=== PATIENT | female | born 1940 | race Caucasian/White ===

== ENCOUNTER 2017-05-13 11:47 | Inpatient (IN) ==
[~2017-05-13 11:47] MED LIST: ERTAPENEM 1 G in NS 100 ML IV ONE
[2017-05-13 12:13] VITALS: BMI 26.9
[2017-05-13] MEDS: LR 1,000 ML IV SCH ×3 (12:50→18:48)
--- NOTE | 2017-05-13 13:40 | Anesthesia Preoperative Report ---
Anesthesia Preoperative Record - Date and Time Date: 05/13/17 Preoperative Diagnosis: Lap lia R10.11 K80.00 Proposed Procedure: lap lia NPO Since Date: 05/12/17 NPO Since Time: 23:00 Allergies/Adverse Reactions: Allergies Allergy/AdvReac Type Severity Reaction Status Date / Time No Known Allergies Allergy Verified 05/13/17 12:07 - Vital Signs Vital Signs: Temperature 98.3 F 05/13/17 12:13 Pulse Rate 101 H 05/13/17 12:13 Respiratory Rate 20 05/13/17 12:13 Blood Pressure 130/61 05/13/17 12:13 Pulse Oximetry 96 05/13/17 12:13 Oxygen Delivery Method Room Air Height and Weight: Height 4 ft 11.5 in Weight 61.6 kg Body Mass Index 26.9 - Medications Inpatient Medications: Current Medications Lactated Ringer's (Lactated Ringers) 1,000 mls @ 30 mls/hr IV .Q24H PAKO Last Admin: 05/13/17 12:50 Dose: 30 mls/hr Lidocaine HCl (Xylocaine-Mpf 1% Vial) 1 mg ID O ONE Stop: 05/13/17 15:13 Last Admin: 05/13/17 12:50 Dose: 1 mg Home Medications: Home Medications Medication Instructions Recorded Confirmed Type Esomeprazole Magnesium [Nexium] 40 mg PO DAILY 05/04/17 05/13/17 History Metformin [Glucophage] 500 mg PO BID 05/04/17 05/13/17 History Multivitamin [One Daily] 1 tab PO DAILY 05/04/17 05/13/17 History Simvastatin [Zocor] 40 mg PO HS 05/04/17 05/13/17 History Calcium Carbonate [Calcium] 1 tab PO HS 05/11/17 05/13/17 History [place]-3/Dha/Epa/Fish Oil [Fish Oil 1 each PO DAILY 05/11/17 05/13/17 History 1,000 mg Softgel] Is Patient on Beta Viviana?: No - Medical History Respiratory: DENIES: Asthma Cardiovascular: DENIES: Hypertension Gastrointestional: Reports: Gastroesophageal Reflux Disease (controlled) Renal/Endocrine: DENIES: Diabetes Mellitus Type 2 Other History: DENIES: Anesthesia Reactions - Surgical History GI Surgery/Treatments: Reports: Colonoscopy, EGD Reproductive Surgery/Treatment: Reports: Dilation and Curettage, Mastectomy ( RIGHT BREAST) Anesthesia Reactions: None Hx Family Anesthesia Reaction: No History of Motion Sickness: No - Social History Smoking Status: Former smoker Hx Chewing Tobacco Use: No Second Hand Exposure: No Substance Use Type: does not use Alcohol Intake Frequency: does not drink - Pertinent Findings Laboratory: CBC and BMP 05/13/17 12:29 BMP 05/13/17 12:29 Sodium 144 Potassium 4.2 Chloride 104 Carbon Dioxide 29 BUN 14.0 Creatinine 0.8 Glucose 130 H Calcium 10.0 Liver Function 05/13/17 Range/Units 12:29 Total Bilirubin 1.20 (0.20-1.30) MG/DL AST 41 H (14-36) U/L ALT 125 H (9-52) U/L Alkaline Phosphatase 173 H (38-126) U/L Albumin 4.3 (3.5-5.0) G/DL EKG Rhythm: Normal Sinus Rhythm - Physical Exam Respiratory Exam: Present: lungs clear Cardiovascular Exam: Present: regular rate and rhythm - Airway Assessment Mallampati Score: II TMD: 3 Fingerbreadths Neck Extension: fair Teeth: poor dentation Overall Assessment: no airway concerns - ASA ASA Score: 2 - Plan Anesthesia: General Inhalation Gases - Discussion Discussion: Discussed risks/options/alternatives of anesthesia and questions answered. Patient consents. Nursing pain assessment noted. Present for Discussion: family member Attestation Statement: Prior to the delivery of any anesthetic medication, I examined the patient, developed the plan, obtained the patient's consent and discussed the risk and benefits of the procedure with the patient/guardian. - Additional Information Seen by Anesthesia: Yes
[2017-05-13] MEDS ORDERED: BUPIVACAINE 0.25%/EPI 1:200,000 30ml SDV ONE (13:41)
[2017-05-13] MEDS ORDERED: IOHEXOL 300mg/ml 50ml INJECTION ONE (13:42)
[2017-05-13] MEDS ORDERED: IOHEXOL 300mg/ml 50ml INJECTION OPSITE ONE (13:54)
[2017-05-13] MEDS ORDERED: KETAMINE 500 MG/10 ML INJECTION ONE (14:09)
[2017-05-13] MEDS ORDERED: MIDAZOLAM 2mg/2ml INJECTION ONE (14:09)
[2017-05-13] MEDS ORDERED: FentaNYL 100 MCG/2 ML INJECTION ONE (14:09)
[2017-05-13] MEDS ORDERED: PROPOFOL 20 ML ONE (14:11)
[2017-05-13] MEDS ORDERED: ROCURONIUM 50 MG/5 ML INJECTION IVP ONE ×2 (14:11→16:52)
[2017-05-13] MEDS ORDERED: ONDANSETRON 4 MG/2 ML INJECTION ONE (14:18)
[2017-05-13] MEDS ORDERED: DEXAMETHASONE 4 MG/ML INJECTION ONE (14:18)
[2017-05-13] MEDS ORDERED: METOCLOPRAMIDE 10mg/2ml INJECTION ONE (14:18)
[2017-05-13] MEDS ORDERED: LIDOCAINE 1% (10mg/ml) 2mL INJ PF SDV ID ONE (15:12)
[2017-05-13] MEDS ORDERED: HYDROMORPHONE 2 MG/ML INJECTION ONE (15:14)
[2017-05-13] MEDS ORDERED: GLYCOPYRROLATE 0.4 MG/2 ML INJECTION ONE ×2 (15:15→18:20)
[2017-05-13] MEDS ORDERED: ACETAMINOPHEN IV 1,000 MG/100 ML VIAL IV ONE (15:31)
[2017-05-13] MEDS ORDERED: ONDANSETRON 4 MG/2 ML INJECTION IVP PRN (18:15)
[2017-05-13] MEDS ORDERED: HYDROMORPHONE 2 MG/ML INJECTION IVP PRN ×2 (18:15→19:34)
[2017-05-13] MEDS ORDERED: FentaNYL 100 MCG/2 ML INJECTION IVP PRN (18:15)
[2017-05-13] MEDS ORDERED: NEOSTIGMINE 10 MG/10 ML INJECTION ONE (18:20)
--- NOTE | 2017-05-13 18:34 | General Surgery Procedure Note ---
Date of Procedure: 05/13/17 Surgeon: [employer] Technologist: Ramiro Postoperative Diagnosis: Acute cholecystitis, choledocholithiasis with obstruction Procedure: Laparoscopic with conversion to open cholecystectomy with intraoperative cholangiogram, open common bile duct exploration and placement of T-tube. Estimated Blood Loss: See Anesthesia Record.
[2017-05-13] MEDS ORDERED: HYDROMORPHONE PCA 30mg/30ml VIAL IV PRN (19:02)
[2017-05-13] MEDS ORDERED: MORPHINE SULFATE 4 MG SYRINGE IVP PRN (19:02)
[2017-05-13] MEDS: BUPIVACAINE 0.25%/EPI 1:200,000 30ml SDV INFIL ONE (19:17)
[2017-05-13] MEDS: NS 1,000 ML IV SCH (20:23)
[2017-05-13] MEDS: ONDANSETRON 4 MG/2 ML INJECTION IVP PRN (22:52)
[2017-05-13] MEDS ORDERED: FUROSEMIDE 20 MG/2 ML INJECTION IVP ONE (23:40)
[2017-05-14] MEDS: SALINE FLUSH 10ml SYRINGE IV PRN ×3 (02:15→19:49)
[2017-05-14] MEDS ORDERED: DiphenhydrAMINE 50 MG/ML INJECTION IVP ONE (02:56)
[2017-05-14] MEDS: KETOROLAC 15 MG/ML INJECTION IVP PRN (03:03)
[2017-05-14] MEDS: NS 1,000 ML IV SCH ×3 (05:42→18:26)
[2017-05-14] MEDS: ONDANSETRON 4 MG/2 ML INJECTION IVP PRN ×2 (06:07→20:11)
[2017-05-14] MEDS ORDERED: NS 1,000 ML IV SCH (08:00)
[2017-05-14] MEDS: MORPHINE SULFATE 2 MG SYRINGE IVP PRN ×2 (09:04→19:49)
[2017-05-14] MEDS: ENOXAPARIN 40 MG/0.4 ML INJECTION SQ SCH (09:07)
[2017-05-14] MEDS: METFORMIN 500 MG TABLET PO SCH (09:10)
[2017-05-14] MEDS: PANTOPRAZOLE 40 MG INJECTION IVP SCH (09:10)
[2017-05-14] MEDS: ERTAPENEM 1 G in NS 100 ML IV SCH (09:11)
--- NOTE | 2017-05-14 10:39 | Consult Note ---
<Krystal Bliss Francesco - Last Filed: 05/14/17 10:35> Consult Information - Data of Consult Patient: new to practice Consult date: 05/14/17 Requesting Physician: Sunil Cantu MD Primary Care Provider: Sridhar Chaudhry MD Family Provider: Sridhar Chaudhry MD - Consult Narrative Reason for consult: Oliguria History of present illness: Alicia Ba is a 76-year-old woman who is seen in consultation from Dr. Cantu for decreased urine outputs. She was admitted on 05/13/17 for cholecystectomy. Originally, this was planned to be laparoscopic, but this was converted to open. She has had decreased urine outputs, at times only 15 mL per hour. Her vital signs have remained stable. Her renal function is intact with BUN of 12 and creatinine of 0.8. Liver enzymes are elevated, but alkaline phosphatase is starting to decline. White blood cell count is 13.6, sodium level is slightly elevated at 145. Alicia was seen in her CCU bed. She states that she is still having abdominal pain, but it is not quite as bad as it was earlier. She complains of constant nausea without vomiting. She complains of headache and dizziness. She states that before all this started, she was having some diarrhea, but this has resolved. She also recently was complaining of hematochezia, and underwent a screening colonoscopy on 05/05/17 which did not show acute pathology. She denies any urinary symptoms. She denies any chest pain or palpitations, dyspnea, cough , fever, chills, sweats, leg swelling, paresthesias. She states that overall she is pretty healthy. [facility] Type 2 diabetes mellitus, [id number]. Last hemoglobin A1c was 6.6% on 02/03/17. Hyperlipidemia - on statin Benign essential Hypertension, no current medications Schizophrenia - previously had taken Zyprexa Right sided breast cancer, in remission. Left-sided screening mammography 2016 was negative. Peptic ulcer disease GERD Insomnia Osteoporosis Surgical History: 05/13/17: Laparoscopic with conversion to open cholecystectomy with intraoperative cholangiogram, open common bile duct exploration and placement of T-tube. (Dr. Cantu). 05/05/17: Screening colonoscopy: Moderate sigmoid diverticulosis. (Dr. Cantu). EGD and colonoscopy: 2006. Right sided mastectomy 1986. D&C 1985 Family History: Mother had diabetes. Brother: Alcohol abuse, liver failure, pancreatic cancer. Sister with diabetes. - Social History Smoking status: Former smoker (quit about 28 years ago) Substance use type: does not use Alcohol intake frequency: does not drink Household members: other (patient is single) Does patient use chewing tobacco?: No Social history: Primary care provider: Dr. Chaudhry Review of Systems Comprehensive ROS: completed and no additional positive findings except those as stated - Constitutional Constitutional: Present: headache(s). Absent: chills, fever(s) - EENMT Eyes: Present: requires corrective lenses. Absent: change in vision Mouth/Throat: Absent: sore throat - Cardiovascular Cardiovascular: Absent: chest pain, palpitations, dyspnea on exertion Vascular: Absent: pedal edema - Respiratory Respiratory: Absent: cough, dyspnea - Gastrointestinal Gastrointestinal: Present: as per HPI, abdominal pain, diarrhea, hematochezia, nausea. Absent: vomiting - Genitourinary Menstruation: post menopausal - Musculoskeletal Musculoskeletal: Absent: muscle cramps - Integumentary/Breasts Integumentary: Absent: pruritus, rash - Neurological Neurological: Present: dizziness. Absent: abnormal gait, frequent falls, paresthesias - Psychiatric Psychiatric: Present: abnormal sleep pattern - Hematologic/Lymphatic Hematologic/Lymphatic: Absent: easy bleeding Medications Home Medications Medication Instructions Recorded Confirmed Type Esomeprazole Magnesium [Nexium] 40 mg PO DAILY 05/04/17 05/13/17 History Metformin [Glucophage] 500 mg PO BID 05/04/17 05/13/17 History Multivitamin [One Daily] 1 tab PO DAILY 05/04/17 05/13/17 History Simvastatin [Zocor] 40 mg PO HS 05/04/17 05/13/17 History Calcium Carbonate [Calcium] 1 tab PO HS 05/11/17 05/13/17 History [place]-3/Dha/Epa/Fish Oil [Fish Oil 1 each PO DAILY 05/11/17 05/13/17 History 1,000 mg Softgel] Allergies Allergy/AdvReac Type Severity Reaction Status Date / Time No Known Allergies Allergy Verified 05/13/17 12:07 Exam Vital Signs: Temperature 98.6 F 05/14/17 07:50 Pulse Rate 96 05/14/17 06:00 Respiratory Rate 18 05/14/17 08:00 Blood Pressure 123/55 05/14/17 06:00 Pulse Oximetry 100 05/14/17 06:00 Oxygen Delivery Method Nasal Cannula Oxygen Flow Rate 2 Fraction of Inspired Oxygen 30 Telemetry Rhythm: Sinus Rhythm Height/Weight/BMI: Height 1.51 m Weight 59.5 kg Body Mass Index 26.9 - Constitutional Present: no acute distress, well nourished, well developed, cooperative - Routine HEENT Exam Head: Present: normocephalic Eye: Present: PERRL. Absent: conjunctival icterus, scleral injection ENT: Present: mucous membranes dry, oropharynx clear - Routine Neck Exam Present: supple. Absent: lymphadenopathy - Routine Chest/Breast/Axilla Exam Comments: Right mastectomy - Routine Respiratory Exam Present: CTA bilaterally - Routine Cardiovascular Exam Present: RRR, S1, S2 - Routine Abdominal Exam Present: drain (2) Comments: Large dressing over her abdomen. Her abdomen is distended with markedly hypoactive bowel sounds. Abdominal assessment and palpation deferred to attending. - Routine Extremities Exam Present: no edema, pulses intact, normal capillary refill - Routine Skin Exam Present: dry, warm - Routine Neurological Exam Present: alert, oriented X3, CN II-XII intact, vision grossly intact, normal speech. Absent: facial asymmetry - Routine Psychiatric Exam Present: normal affect, normal thought process, cooperative Results - Labs CBC & Chem 7: 05/14/17 04:06 05/14/17 04:03 Assessment and Plan (1) Oliguria Current visit: Yes Status: Acute DVT Prophylaxis: Lovenox GI Prophylaxis: Protonix Resuscitation Status: Full Code Assessment and Plan: Assessment Oliguria Leukocytosis. Hypernatremia, mild S/P Laparoscopic with conversion to open cholecystectomy with intraoperative cholangiogram, open common bile duct exploration & placement of T-tube. Elevated LFTs secondary to cholecystitis Type 2 diabetes mellitus, [id number]. Last hemoglobin A1c was 6.6% on 02/03/17. Hyperlipidemia - on statin Hypertension - no medication required Schizophrenia - had been on Zyprexa in the past Right sided breast cancer, in remission. 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 The last 3 hours, she has had 50 mL, 60 mL, and 40 mL[address] of output. Dr. Juarez has already ordered a fluid bolus. Her renal function is currently stable with BUN of 12 and creatinine of 0.8. Review of [facility] records show a consistent GFR greater than 60, and a baseline creatinine of 0.8. However, with her underlying hypertension and diabetes, she'll is at risk for chronic kidney disease; and with recent major surgery is at greater risk for acute kidney injury. Continue to monitor vital signs, preventing hypotension as able, which would contribute to reduced renal perfusion. Currently, her vital signs are stable, and her mean arterial pressure has typically been in the 80s. Leukocytosis - continue meropenem per attending. (Leukocytosis could be stress reaction) Mild hypernatremia - IV fluids. Monitor blood sugars. She has had some readings above 180. Start low correction sliding scale insulin. Hold metformin for now. [facility] records show that she is also taking glimepiride 2 mg daily. When she is medically cleared to advance her diet and is eating well, we could consider resuming glimepiride, monitoring closely for hypoglycemia. Thank you for this consult. We will follow Alicia along with you during her hospitalization. Hospital Course Summary Disclaimer: The visit summary below is not to be considered part of the above Progress Note. 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 The last 3 hours, she has had 50 mL, 60 mL, and [address] Juarez has already ordered a fluid bolus. Her renal function is currently stable with BUN of 12 and creatinine of 0.8. Review of [facility] records show a consistent GFR greater than 60, and a baseline creatinine of 0.8. However, with her underlying hypertension and diabetes, she'll is at risk for chronic kidney disease; and with recent major surgery is at greater risk for acute kidney injury. Continue to monitor vital signs, preventing hypotension as able, which would contribute to reduced renal perfusion. Currently, her vital signs are stable, and her mean arterial pressure has typically been in the 80s. Leukocytosis - continue meropenem per attending. (Leukocytosis could be stress reaction) Mild hypernatremia - IV fluids. Monitor blood sugars. She has had some readings above 180. Start low correction sliding scale insulin. Hold metformin for now. [facility] records show that she is also taking glimepiride 2 mg daily. When she is medically cleared to advance her diet and is eating well, we could consider resuming glimepiride, monitoring closely for hypoglycemia. Sepsis Assessment - Evaluation Sepsis screening result: Severe Sepsis Risk <Denver Juarez - Last Filed: 05/14/17 11:39> Consult Information - Data of Consult Requesting Physician: Sunil Cantu MD Primary Care Provider: Sridhar Chaudhry MD Family Provider: Sridhar Chaudhry MD [facility] Patient Stated Medical History Transient Ischemic Attacks ( Yes TIA) Cataracts Yes Other HEENT Yes: glasses Hypertension No Asthma No Sleep Apnea No Diabetes Mellitus Type 2 No Gastroesophageal Reflux Yes: controlled Disease Ulcer Yes: PEPTIC Other GI Yes: cholelithiasis Other Musculoskeletal Yes: OSTEOPOROSIS Anesthesia Reactions No Paranoid Disorder Yes Schizophrenia Yes Post Menopausal Yes Exam Vital Signs: Temperature 98.6 F 05/14/17 07:50 Pulse Rate 96 05/14/17 06:00 Respiratory Rate 18 05/14/17 08:00 Blood Pressure 123/55 05/14/17 06:00 Pulse Oximetry 100 05/14/17 06:00 Oxygen Delivery Method Nasal Cannula Oxygen Flow Rate 2 Fraction of Inspired Oxygen 30 Height/Weight/BMI: Height 1.51 m Weight 59.5 kg Body Mass Index 26.9 Results - Labs CBC & Chem 7: 05/14/17 04:06 05/14/17 04:03 Assessment and Plan (1) Oliguria Current visit: Yes Status: Acute DVT Prophylaxis: SCD's Assessment and Plan: Assessment Oliguria Leukocytosis. Hypernatremia, mild S/P Laparoscopic with conversion to open cholecystectomy with intraoperative cholangiogram, open common bile duct exploration & placement of T-tube. Elevated LFTs secondary to cholecystitis Type 2 diabetes mellitus, [id number]. Last hemoglobin A1c was 6.6% on 02/03/17. Hyperlipidemia - on statin Hypertension - no medication required Schizophrenia - had been on Zyprexa in the past Right sided breast cancer, in remission. Peptic ulcer disease; GERD Insomnia Osteoporosis Have independently interviewed and examined pt. Chart reviewed. Case discussed with CCU nursing and my DIRECT SUPPORT STAFF MEMBER. Care plan developed with my supervision; agree with above. Feeling fair this morning. Notes ab pain, mainly to right upper quadrant. Nausea present. No flatus. Not feeling SOA or hurting with breathing. No chest pressure or pain. Urine output increase after IVF bolus given-respiratory status remained stable. Lungs: decreased, no distress on O2. CV: regular AB: soft nd, BS not present MSE: awake alert appropriate Plan: Continue IVF for support-monitor BP and urine output. Withe elevated liver enzymes, will hold Zocor and metformin; monitor. SCD and Lovenox initiated for DVT prevention. Protonix IV for her GERD. Encourage IS for pulm toilet. Encourage ambulation. Monitor lab and sugars - ISS initiated. Hospital Course Summary Disclaimer: The visit summary below is not to be considered part of the above Progress Note.
--- NOTE | 2017-05-14 11:36 | Progress Note ---
DATE 05/14/2017 POSTOP DAY #1 HISTORY The patient is in the intensive care unit following her operation yesterday evening. The patient is doing well overall. She did have some urinary retention during the night last night and was not able to urinate. A bladder scan was used to check the urinary bladder and there was 800 mL of residual urine in the urinary bladder at this time which the patient was unable to void. A Ho catheter was therefore inserted. Urine output has been monitored with the Ho catheter since then. The urine output was somewhat low earlier this morning and the patient was given a fluid bolus of 250 mL. Urine output improved after this. The patient does require oxygen administration by nasal cannula. She is receiving some respiratory therapy treatments. The patient is receiving intravenous Invanz. The patient has been tolerating a clear liquid diet this morning. She does have an order to advance diet as tolerated. INTAKE AND OUTPUT Overall urine output for the last shift was good although the patient did have some low urine output earlier this morning. The patient did have output of 190 mL of normal-appearing bile from the T-tube during the last shift. There is normal-appearing bile in the bag draining from the T-tube at this time. The patient had 70 mL of output from the Ángel-Poe channel drain to the subhepatic space during the last shift. This drainage in the Ángel-Poe channel drain is serosanguineous and not bile-stained. PHYSICAL EXAM VITAL SIGNS: Temperature is 98.6 degrees oral. Pulse is 96. Respiratory rate is 16. Blood pressure is 123/55. Oxygen saturation is 100% on oxygen at 2 liters per minute by nasal cannula at this time. ABDOMEN: Dressings are left in place at the abdominal incisions. The abdomen is soft. The drains to the abdomen all have a satisfactory appearance. LABORATORY DATA White blood cell count is 13,600 with 4 bands this morning. Hemoglobin is 12.4. Hematocrit is 40. Serum electrolytes are all in a satisfactory range. Serum creatinine is 0.8. IMPRESSION 1. Doing well overall following open cholecystectomy, intraoperative cholangiograms, common bile duct exploration, removal of common bile duct stones and T-tube cholangiograms on 05/13/2017. 2. Postoperative urinary retention. 3. Transient low urine output this morning. PLAN 1. Continue postoperative care in the intensive care unit. 2. The Ho catheter will be left in place yet at this time because of postoperative urinary retention and low urine output. 3. Continue intravenous Invanz. 4. Continue leaving the bile tube to dependent drainage at this time. 5. Continue respiratory therapy. 6. Continue Lovenox and sequential compression devices for deep venous thrombosis prophylaxis. MTDD
[2017-05-14] MEDS: HYDROCODONE/APAP 5mg/325mg TABLET PO PRN (12:20)
--- NOTE | 2017-05-14 15:41 | Operative Note ---
DATE OF SERVICE 05/13/2017 SURGEON Sunil Cantu MD CHECKING CLERK Alex Rubio MD PREOPERATIVE DIAGNOSIS Symptomatic cholelithiasis, possible choledocholithiasis. POSTOPERATIVE DIAGNOSIS Acute/chronic cholecystitis, choledocholithiasis. PROCEDURE Attempted laparoscopic cholecystectomy with conversion to open cholecystectomy and common bile duct exploration. ANESTHESIA General endotracheal. EBL/FLUIDS Please see chart. BRIEF HISTORY/INDICATIONS Mrs. Ba is a 76-year-old female whom I was asked to see earlier this week through the emergency room. The patient apparently had earlier this week an episode of abdominal pain that lasted for a couple of days. The patient subsequently presented to her PCP and evaluation was undertaken. Lab work was obtained through the office and her bilirubin was found to be elevated at 4. The patient subsequently underwent a CT scan that did reveal evidence for cholelithiasis and probable choledocholithiasis. Repeat lab in the ER revealed that her bilirubin was on a downward trend. The patient's abdominal pain at that time had resolved. Patient was subsequently sent to my office the following day. As a result of the above indications the patient was scheduled undergo cholecystectomy. She presents today to undergo this procedure. For completeness please refer to notes included in the patient's chart. FINDINGS Upon laparotomy the liver edge was smooth without nodularities. Peritoneal surfaces, small bowel, omentum and colon which were visualized were within normal limits. The gallbladder was markedly abnormal. There was a very thickened "rind" surrounding the gallbladder consistent with that of chronic inflammation. Furthermore, essentially the infundibulum was adherent to the common bile duct and there was no cystic duct present. Dissection was difficult and therefore the procedure was converted to an open procedure. Infundibulum was dissected down to the junction with the common bile duct. Intraoperative cholangiogram was obtained that revealed multiple common bile duct stones. Subsequent formal common bile duct exploration was undertaken and her common bile duct was cleared. NARRATIVE OF PROCEDURE After informed consent was obtained the patient was brought to the operative suite and placed on the table in supine fashion. The abdomen was prepped and draped in sterile fashion. Formal time-out was then completed. 0.25% Marcaine with epinephrine was injected just beneath the level of the umbilicus. A 2-cm curved incision was made through the area of analgesia. Dissection was carried down to the deep subcuticular tissues to underlying fascia. The fascia was grasped with two Rubén clamps and retracted anteriorly. A 1-cm incision was then made between the two Rubén clamps. Hemostat was then introduced and the fascial incision gently spread. U-stitch was placed with 0-Vicryl. A 12-mm Marion port was then placed in the peritoneal cavity and pneumoperitoneum was established to a patient pressure of 15 mmHg utilizing carbon dioxide. Next, three additional 5-mm ports were placed in the epigastric region, right mid abdomen and right lateral abdominal wall. Each port site was placed under direct visualization. Fundus of the gallbladder was then grasped and retracted in cephalad fashion. One could then see that the anatomy was abnormal and it appeared that the infundibulum was adherent to the common bile duct. One could see significant dilatation of the common bile duct within the hepatoduodenal ligament. Dissection was begun upon the midportion of the infundibulum of the gallbladder away from what was believed to be the common bile duct. Dissection was very tedious as a result of a very thickened rind around the gallbladder consistent with that of chronic cholecystitis. At this point in time I elected to go ahead and proceed with an approach from the fundus down towards the infundibulum. Fundal portion of the gallbladder was able to be dissected away from the liver bed fossa. Dissection was then continued between the gallbladder and the liver bed fossa in a fundus-down approach towards the infundibulum. As one reached the infundibulum of the gallbladder the dissection began to become more tedious in nature. Anatomy was not able to be clearly defined and I therefore elected to proceed with conversion to open procedure. Ports were removed. Previously placed U-stitch at the infraumbilical port was then secured, imbricating the fascia. Next, a standard right subcostal incision was performed. The underlying external oblique, transversalis, internal oblique and peritoneum was opened to the extent of the incision. A Codman retractor was then placed to provide adequate exposure. Next, a Rubén clamp was then placed upon the fundal portion of the gallbladder. Gallbladder was retracted in an anterior and lateral fashion. Dissection was then continued upon the infundibulum of the gallbladder. Dissection was very difficult as a result of this thickened rind, as discussed above. Cystic artery was able to be identified and dissected away from the gallbladder. The infundibular portion of the gallbladder was then continued to be dissected out towards the common bile duct. Next, a cholecystotomy was performed within the mid portion of the gallbladder. I then placed a right angle clamp into the gallbladder lumen and a portion of the gallbladder wall was opened so that one could see towards the fundal portion of the gallbladder. One could then see that the fundal portion of the gallbladder was actually adherent to the gallbladder and there was no cystic duct. One could directly look into the common bile duct from the incision that had been performed upon the mid portion of the gallbladder lumen. Next, a cholangiocatheter was then placed through the cholecystotomy and advanced into the common bile duct. An 0- Vicryl suture was then placed upon the remaining portion of the infundibulum of the gallbladder that had not been opened. I subsequently tied the Vicryl suture around the infundibular portion of the gallbladder, imbricating the fundal portion of the gallbladder to the cholangiocatheter. Cholangiogram was then obtained. Unfortunately, one could see multiple very large stones within the common bile duct. Common bile duct was significantly dilated in nature. Next, a Codman retractor was then replaced to provide exposure once again. The previously placed 0-Vicryl suture upon the infundibular portion of the gallbladder was then transected with Metzenbaums and the cholangiocatheter was removed. Next, I placed a choledochoscope through the cholecystotomy and advanced it directly into the common bile duct. One could then see several large stones. A four-wire Avalos basket was placed through the choledochoscope and into the common bile duct under direct visualization. The four-wire Avalos basket would not open to a great enough extent to allow passage of the stones into the basket itself. Stones were surprisingly about 1.5 cm to perhaps even 2 cm in greatest dimension. At this point in time the choledochoscope was then removed. I was actually able to place my hand upon the common bile duct and feel these large stones. The stones were actually "milked backwards" towards the opening of the common bile duct through the fundal portion of the gallbladder. One could then actually see the stones within the common bile duct. The stones were large enough, however, they could not be delivered through the opening within the common bile duct. Next, utilizing Cheung scissors , the original cholecystotomy was then extended down upon the fundal portion of the gallbladder and subsequently onto the common bile duct itself. Still, the stone was so large that it could not be brought forth through the choledochotomy. I then utilized a Rubén clamp and the Rubén clamp was placed upon the stone and the stone was fractured into pieces and then was able to be delivered up through the choledochotomy. Next, the choledochoscope was then placed through the choledochotomy and advanced towards the distal common bile duct. There were still several large stones that were present. The four-wire Avalos basket was still not large enough to be able to encompass the stone. The choledochoscope was then removed. Once again, with finger palpation I was able to advance an additional three to four large stones from the distal common bile duct back up into the choledochotomy opening and subsequently remove these stones utilizing DeBakey forceps. Eventually the common bile duct was able to be cleared in this fashion. Choledochoscope was then placed back into the choledochotomy and at this time no residual stones were present. I also advanced the choledochoscope proximally to the bifurcation of the left and right hepatic ducts. No stones were present at this location. Choledochoscope was then removed. Next, the fundus of the gallbladder was transected with Cheung scissors about 5-6 mm away from the common bile duct. At this time a 20- Fr T-tube was obtained. The back portion of the T-tube was transected. The two limbs of the T-tube were then placed through the choledochotomy. Once the T -tube had been placed in the appropriate orientation, the choledochotomy and remaining infundibular portion of the gallbladder were then closed by placing multiple single interrupted sutures of 5-0 Vicryl. DC was then allowed to exit through the anterior abdominal wall just caudad to the subcostal incision. A [employer] tree adapter was then placed upon the T-tube and T-tube cholangiogram was obtained. Under fluoroscopy one could see now a good taper of the distal common bile duct with good flow into the duodenum. There was no evidence for extravasation. No evidence for filling defects. Proximally one could see the intrahepatic radicles, left and right hepatic duct and common hepatic. After obtaining a normal T-tube cholangiogram, attention was directed towards closure. The 19-Fr KWABENA drain was allowed to exit just caudad and lateral to the subcostal incision. KWABENA drain was placed near the choledochotomy closure and upon the gallbladder fossa. Instrument, sponge and needle counts were performed and found to be correct. Attention was directed towards closure. Fascia was closed in two layers. Internal oblique and transversalis aponeurosis were closed in a running fashion with #1 PDS. External oblique aponeurosis and anterior rectus sheath were then closed in a running fashion with #1 PDS. Skin incisions were then closed with sarah. Patient has awakened from her anesthetic and currently is in the ICU in stable condition. LUIS
[2017-05-14] MEDS: INSULIN ASPART 100unit/ml INJECTION SQ PRN (20:23)
[2017-05-15] MEDS: ONDANSETRON 4 MG/2 ML INJECTION IVP PRN ×2 (02:20→18:55)
[2017-05-15] MEDS: KETOROLAC 15 MG/ML INJECTION IVP PRN ×2 (02:20→21:24)
[2017-05-15] MEDS: SALINE FLUSH 10ml SYRINGE IV PRN ×2 (02:20→23:15)
[2017-05-15] MEDS: NS 1,000 ML IV SCH ×2 (03:38→17:32)
[2017-05-15] MEDS: INSULIN ASPART 100unit/ml INJECTION SQ PRN ×3 (04:37→22:24)
[2017-05-15] MEDS: METOCLOPRAMIDE 10mg/2ml INJECTION IVP PRN ×2 (08:03→23:14)
[2017-05-15] MEDS: HYDROCODONE/APAP 5mg/325mg TABLET PO PRN ×3 (08:51→19:14)
[2017-05-15] MEDS: PANTOPRAZOLE 40 MG INJECTION IVP SCH (08:51)
[2017-05-15] MEDS: ERTAPENEM 1 G in NS 100 ML IV SCH (08:52)
[2017-05-15] MEDS: ENOXAPARIN 40 MG/0.4 ML INJECTION SQ SCH (08:52)
--- NOTE | 2017-05-15 10:47 | Remote Fluorsocopy Report ---
Indication: CHOLELITHIASIS PROCEDURE: RF cholangiogram operative: Comparison: None Findings: 7 fluoroscopic spot images are submitted from an intraoperative cholangiogram. Images demonstrate injection of contrast into the cystic duct with filling of the common duct and intrahepatic biliary tree. Bile ducts are severely dilated. There are multiple large filling defects identified on the initial images. Contrast flows into the duodenum. Impression: Intraoperative fluoroscopy as above. Please refer to the dictated operative note for further details. Fluoroscopy time is 151.8 seconds. Fluoroscopy dose is 5670 mRad. .
[2017-05-15] MEDS: BUPIVACAINE 0.25%/EPI 1:200,000 30ml SDV INFIL ONE (11:57)
--- NOTE | 2017-05-15 12:51 | Progress Note ---
Subjective: F/U: S/P Laparoscopic with conversion to open cholecystectomy with intraoperative cholangiogram, open common bile duct exploration & placement of T -tube. Sleeping this afternoon, but easily awaken. Notes some abdominal cramping/ bloating. Pain varies. Not passing flatus. Taking sips of liquids without nausea. Report some feelings of SOA (needing O2, and will desaturate if moved to RA). No pain with breathing or cough. Not having chest pressure. Has been ambulating with nursing. Urine output improved. Blood pressure stable. Objective Vital signs: Temperature 98.0 F 05/15/17 09:00 Pulse Rate 112 H 05/15/17 09:00 Respiratory Rate 25 H 05/15/17 09:00 Blood Pressure 131/60 05/15/17 09:00 Pulse Oximetry 95 05/15/17 09:52 Oxygen Delivery Method Room Air Oxygen Flow Rate 1.5 Fraction of Inspired Oxygen 25 Rhythm: Sinus Tachycardia Height/Weight/BMI: Height 1.51 m Weight 59.5 kg Body Mass Index 26.9 - Constitutional Present: well nourished, well developed, cooperative - Routine HEENT Exam Head: Present: normocephalic, atraumatic Eye: Present: EOMI, PERRL ENT: Present: mucous membranes moist - Routine Respiratory Exam Present: decreased breath sounds. Absent: respiratory distress, wheezes, crackles - Routine Cardiovascular Exam Present: tachycardia (Regular) - Routine Abdominal Exam Present: soft, non tender. Absent: normoactive bowel sounds - Routine Exam Comments: Ho present - Routine Extremities Exam Present: no edema, pulses intact - Routine Musculoskeletal Exam Musculoskeletal: Present: no clubbing or cyanosis, normal strength - Routine Skin Exam Present: warm, normal turgor - Routine Neurological Exam Present: alert, CN II-XII intact, vision grossly intact, hearing grossly intact. Absent: motor deficit - Routine Psychiatric Exam Present: normal affect, cooperative. Absent: anxious, agitated Results - Labs CBC & Chem 7: 05/15/17 04:19 05/14/17 18:51 Assessment and Plan (1) Oliguria Current visit: Yes Status: Acute DVT Prophylaxis: SCD's, Lovenox Resuscitation Status: Full Code Assessment and Plan: Assessment Oliguria - resolved Leukocytosis - improved . Hypernatremia, mild - resolved. S/P Laparoscopic with conversion to open cholecystectomy with intraoperative cholangiogram, open common bile duct exploration & placement of T-tube. Elevated LFTs secondary to cholecystitis Type 2 diabetes mellitus, [id number]. Last hemoglobin A1c was 6.6% on 02/03/17. Hyperlipidemia - on statin Hypertension - no medication required Schizophrenia - had been on Zyprexa in the past Right sided breast cancer, in remission. Peptic ulcer disease; GERD Insomnia Osteoporosis Plan D/C Ho as urine output increase. Continue to monitor I/O and weights. Liver enzymes trending down - continue to home simvastatin and metformin. Recheck liver enzymes in am. Encourage IS for pulmonary toilet. Encourage ambulation to help respiratory status. Will check CXR in am. Continue with NS at 75 cc/hr - decrease as oral drive improves. Bowel function slowly returning. Tolerating clear liquid without nausea; no flatus reported. Stay with liquids for now. Blood sugars stable - continue to monitor and use ISS for control. Sepsis Assessment - Evaluation Sepsis screening result: No Definite Risk Hospital Course Summary Disclaimer: The visit summary below is not to be considered part of the above Progress Note. 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 The last 3 hours, she has had 50 mL, 60 mL, and [address] output[address] Juarez has already ordered a fluid bolus. Her renal function is currently stable with BUN of 12 and creatinine of 0.8. Review of [employer] records show a consistent GFR greater than 60, and a baseline creatinine of 0.8. However, with her underlying hypertension and diabetes, she'll is at risk for chronic kidney disease; and with recent major surgery is at greater risk for acute kidney injury. Continue to monitor vital signs, preventing hypotension as able, which would contribute to reduced renal perfusion. Currently, her vital signs are stable, and her mean arterial pressure has typically been in the 80s. Leukocytosis - continue meropenem per attending. (Leukocytosis could be stress reaction) Mild hypernatremia - IV fluids. Monitor blood sugars. She has had some readings above 180. Start low correction sliding scale insulin. Hold metformin for now. [facility] records show that she is also taking glimepiride 2 mg daily. When she is medically cleared to advance her diet and is eating well, we could consider resuming glimepiride, monitoring closely for hypoglycemia. 05/15/17 - Hospitalist D/C Vic as urine output increase. Continue to monitor I/O and weights. Liver enzymes trending down - continue to home simvastatin and metformin. Recheck liver enzymes in am. Encourage IS for pulmonary toilet. Encourage ambulation to help respiratory status. Will check CXR in am. Continue with NS at 75 cc/hr - decrease as oral drive improves. Bowel function slowly returning. Tolerating clear liquid without nausea; no flatus reported. Stay with liquids for now. Blood sugars stable - continue to monitor and use ISS for control.
[2017-05-15] MEDS: METFORMIN 500 MG TABLET PO SCH (17:42)
[2017-05-15] MEDS: MORPHINE SULFATE 2 MG SYRINGE IVP PRN (23:15)
[2017-05-16] MEDS: INSULIN ASPART 100unit/ml INJECTION SQ PRN (06:05)
[2017-05-16] MEDS: NS 1,000 ML IV SCH ×2 (06:56→20:53)
[2017-05-16] MEDS: HYDROCODONE/APAP 5mg/325mg TABLET PO PRN (06:56)
[2017-05-16] MEDS: ENOXAPARIN 40 MG/0.4 ML INJECTION SQ SCH (08:54)
[2017-05-16] MEDS: PANTOPRAZOLE 40 MG INJECTION IVP SCH (08:55)
[2017-05-16] MEDS: METFORMIN 500 MG TABLET PO SCH ×2 (08:55→17:35)
--- NOTE | 2017-05-16 10:34 | General Surgery Progress Note ---
Subjective Patient reports: feels better ( with some less incisional pain, she able to get to and from bed and chair with assist.), voiding w/o difficulty (small amounts since Ho removed. Bladder scan earlier was over 500 ml, she was able to void about another 250 and most recent scan was about 380 ml. Straight Cath had been ordered earlier by hospitalist, will proceed with this.), no flatus, no bowel movement, afebrile (currently, but T-Max 100.4), other (T-tube blue connector slips off the T-tube easily and then bile drains onto gauze. Staff have tried a variety of tape options with minimal success at keeping the connection tight.) - Vital Signs Last Vital Signs Temp 99.7 F 05/16/17 04:07 Pulse 109 H 05/16/17 10:00 Resp 12 05/16/17 10:00 BP 138/66 05/16/17 10:00 Pulse Ox 90 05/16/17 10:00 - Laboratory Result Diagrams: 05/16/17 03:57 05/16/17 03:57 - Abnormal Exam General: mild distress (when up to toileting, she seems to have a "routine" of diaphoresis after voiding attempts and has to go back to bed with a wash cloth on the forehead after voids per staff report) - Normal Exam General: oriented Cardiovascular: regular rhythm, regular rate Respiratory: equal bilaterally Abdominal: appropriately tender ( with long right subcostal incision), incision( s) (sarah in tact, no erythema or ecchymosis) Additional Normal Findings: T-tube with bile colored fluid in the bag, connection is tight now, but can see how it would easily come loose. KWABENA with serosanguineous fluid, no indication of bile. Assessment and Plan (1) Choledocholithiasis with acute cholecystitis with obstruction Current Visit: Yes Status: Acute (2) Urinary retention with incomplete bladder emptying Current Visit: Yes Status: Acute (3) Oliguria Current Visit: Yes Status: Acute (4) Postoperative urinary retention Current Visit: Yes Status: Acute (5) Diabetes mellitus Current Visit: Yes Status: Chronic Qualifiers: Diabetes mellitus type: type 2 Diabetes mellitus complication status: without complication Diabetes mellitus intermediate frame tender insulin use: without intermediate frame tender use Qualified Code(s): E11.9 - Type 2 diabetes mellitus without complications (6) Schizophrenia Current Visit: Yes Status: Chronic Qualifiers: Schizophrenia type: unspecified Qualified Code(s): F20.9 - Schizophrenia, unspecified Plan: 05/16/17 POD #3 Still having trouble with urinary retention, confirmed with bladder scan, a singe straight cath has been ordered. Will continue to monitor. LFT's have come down. WBC normal at 7.2 and HGB stable at 10.5 She is on full liquid diet, there are adequate bowel sounds, no flatus or BM per patient. Will add Dulcolax PO today. Hospital Course Summary Disclaimer: The visit summary below is not to be considered part of the above Progress Note. Hospital Course: POD #1 surgery note IMPRESSION 1. Doing well overall following open cholecystectomy, intraoperative cholangiograms, common bile duct exploration, removal of common bile duct stones and T-tube cholangiograms on 05/13/2017. 2. Postoperative urinary retention. 3. Transient low urine output this morning. PLAN 1. Continue postoperative care in the intensive care unit. 2. The Ho catheter will be left in place yet at this time because of postoperative urinary retention and low urine output. 3. Continue intravenous Invanz. 4. Continue leaving the bile tube to dependent drainage at this time. 5. Continue respiratory therapy. 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 The last 3 hours, she has had 50 mL, 60 mL, and [address] Juarez has already ordered a fluid bolus. Her renal function is currently stable with BUN of 12 and creatinine of 0.8. Review of [facility] records show a consistent GFR greater than 60, and a baseline creatinine of 0.8. However, with her underlying hypertension and diabetes, she'll is at risk for chronic kidney disease; and with recent major surgery is at greater risk for acute kidney injury. Continue to monitor vital signs, preventing hypotension as able, which would contribute to reduced renal perfusion. Currently, her vital signs are stable, and her mean arterial pressure has typically been in the 80s. Leukocytosis - continue meropenem per attending. (Leukocytosis could be stress reaction) Mild hypernatremia - IV fluids. Monitor blood sugars. She has had some readings above 180. Start low correction sliding scale insulin. Hold metformin for now. [employer] records show that she is also taking glimepiride 2 mg daily. When she is medically cleared to advance her diet and is eating well, we could consider resuming glimepiride, monitoring closely for hypoglycemia. 05/15/17 - Hospitalist D/C Vic as urine output increase. Continue to monitor I/O and weights. Liver enzymes trending down - continue to home simvastatin and metformin. Recheck liver enzymes in am. Encourage IS for pulmonary toilet. Encourage ambulation to help respiratory status. Will check CXR in am. Continue with NS at 75 cc/hr - decrease as oral drive improves. Bowel function slowly returning. Tolerating clear liquid without nausea; no flatus reported. Stay with liquids for now. Blood sugars stable - continue to monitor and use ISS for control. 05/16/17 10:48 05/16/17 10:50 05/16/17 POD #3 Still having trouble with urinary retention, confirmed with bladder scan, a singe straight cath has been ordered. Will continue to monitor. LFT's have come down. WBC normal at 7.2 and HGB stable at 10.5 She is on full liquid diet, there are adequate bowel sounds, no flatus or BM per patient. Will add Dulcolax PO today. Sepsis Assessment - Evaluation Sepsis screening result: No Definite Risk
[2017-05-16] MEDS ORDERED: Bisacodyl EC TAB 5 MG TABLET PO ONE (10:51)
--- NOTE | 2017-05-16 10:54 | Progress Note ---
DATE 05/15/2017 POSTOP DAY #2 HISTORY The patient remains in the intensive care unit. The patient is doing well. She has been ambulating in the ICU. Her diet has been advanced up to a full liquid diet. She is tolerating the full liquid diet. Urine output is good at this time. The oxygen administration has been able to be weaned down to 1 liter per minute by nasal cannula. INTAKE AND OUTPUT The urine output for the patient is good today. Output from the T-tube was 230 ml for the last shift. The T-tube output looks like normal bile. Output from the Ángel-Poe channel drain to the subhepatic space was 12 ml for the last shift. This is serosanguineous fluid which is not bile stained. EXAM Temperature is 98 degrees Fahrenheit oral. Pulse is 98. Blood pressure is 131/ 60. Oxygen saturation is 95% on oxygen at 1 liter per minute by nasal cannula at this time. ABDOMEN: The abdomen is soft. Dressings were left in place at the abdominal incisions. The drains look good. LABORATORY White blood cell count is 9500 today with no bands. Hemoglobin is 10.6. Hematocrit is 34.7. IMPRESSION Doing well overall following open cholecystectomy, intraoperative cholangiograms , common bile duct exploration, removal of common bile duct stones and T-tube cholangiograms on 05/13/2017. PLAN 1. Continue postoperative care in the intensive care unit. 2. The Ho catheter could be removed today. 3. Continue respiratory therapy. 4. Continue Lovenox and sequential compression devices for deep venous thrombosis prophylaxis. 5. Continue to leave bile tube to dependent drainage yet at this time. 6. Continue to advance diet and activity as tolerated. MTDD
[2017-05-16] MEDS: KETOROLAC 15 MG/ML INJECTION IVP PRN (11:00)
--- NOTE | 2017-05-16 12:07 | XRay Report ---
EXAM: XR chest 1V LOCATION OF DICTATION: [facility] HISTORY: Dyspnea/hypoxia COMPARISON: No prior studies available for comparison. FINDINGS: The heart size is mildly enlarged. Central pulmonary vasculature is within normal limits. Mild basilar atelectasis or scarring suggested. Slight elevation the right hemidiaphragm. No consolidating opacities or pleural effusions. No pneumothorax. Mild to moderate spondylosis of the thoracic spine. IMPRESSION: 1. The heart is mildly enlarged without CHF. 2. Mild bibasal atelectasis or scarring suggested. .
--- NOTE | 2017-05-16 12:08 | Progress Note ---
Subjective: F/U: S/P Laparoscopic with conversion to open cholecystectomy with intraoperative cholangiogram, open common bile duct exploration & placement of T -tube. Doing okay. Notes fullness/discomfort to abdomen. Not passing flatus. Some nausea. Breathing feeling okay, but needs O2 to keep saturations maintained. Denies cough or congestion. Does have ab pain/discomfort with deep breathing. Nursing notes urinary retention-did have nursing perform strait cath. Objective Vital signs: Temperature 99.7 F 05/16/17 04:07 Pulse Rate 109 H 05/16/17 10:00 Respiratory Rate 12 05/16/17 10:00 Blood Pressure 138/66 05/16/17 10:00 Pulse Oximetry 90 05/16/17 10:00 Oxygen Delivery Method Nasal Cannula Oxygen Flow Rate 2 Fraction of Inspired Oxygen 25 Rhythm: Sinus Tachycardia Height/Weight/BMI: Height 1.51 m Weight 66.5 kg Body Mass Index 26.9 - Constitutional Present: well nourished, well developed, cooperative - Routine HEENT Exam Head: Present: normocephalic, atraumatic Eye: Present: EOMI, PERRL ENT: Present: mucous membranes moist - Routine Respiratory Exam Present: distant breath sounds, diminished air movement. Absent: respiratory distress - Routine Cardiovascular Exam Present: no murmur, tachycardia - Routine Abdominal Exam Present: soft. Absent: normoactive bowel sounds (decreased, but more pronounced than yesterday. ), guarding - Routine Extremities Exam Present: no edema, pulses intact - Routine Musculoskeletal Exam Musculoskeletal: Present: normal strength - Routine Skin Exam Present: dry, warm - Routine Neurological Exam Present: alert, oriented X3, vision grossly intact, hearing grossly intact. Absent: motor deficit - Routine Psychiatric Exam Present: normal affect, cooperative. Absent: anxious, agitated Results - Labs CBC & Chem 7: 05/16/17 03:57 05/16/17 03:57 Assessment and Plan (1) Oliguria Current visit: Yes Status: Acute DVT Prophylaxis: SCD's, Lovenox GI Prophylaxis: Protonix Resuscitation Status: Full Code Assessment and Plan: Assessment Oliguria - resolved Urinary retention Leukocytosis - improved Hypernatremia, mild - resolved. S/P Laparoscopic with conversion to open cholecystectomy with intraoperative cholangiogram, open common bile duct exploration & placement of T-tube. Elevated LFTs secondary to cholecystitis - resolving. Type 2 diabetes mellitus, [id number]. Last hemoglobin A1c was 6.6% on 02/03/17. Hyperlipidemia - on statin Hypertension - no medication required Schizophrenia - had been on Zyprexa in the past Right sided breast cancer, in remission. Peptic ulcer disease; GERD Insomnia Osteoporosis Plan Nursing to encourage void and monitor bladder scan. Liver enzymes decreasing - could restart simvastatin. Will continue to hold metformin - sugars stable and not on regular food. Dulcolax suppository given to help bowel function. Encourage ambulation to help functional status, respiratory status, and bowels. Decrease IVF to 50 cc/hr. Weight trending upwards. Medically improving - anticipate transfer to surgical floor today to continue care. Urinary retention continuing throughout day. Not sensing need to urinate. Will replace Ho and initiate bladder retraining. Sx okay with pt transferring to surgical floor. Orders written for transfer. Cased discussed with CCU nursing. Time spent with patient care 25 minutes. - Time spent with patient 25 - 35 minutes Sepsis Assessment - Evaluation Sepsis screening result: No Definite Risk Hospital Course Summary Disclaimer: The visit summary below is not to be considered part of the above Progress Note. Hospital Course: POD #1 surgery note IMPRESSION 1. Doing well overall following open cholecystectomy, intraoperative cholangiograms, common bile duct exploration, removal of common bile duct stones and T-tube cholangiograms on 05/13/2017. 2. Postoperative urinary retention. 3. Transient low urine output this morning. PLAN 1. Continue postoperative care in the intensive care unit. 2. The Ho catheter will be left in place yet at this time because of postoperative urinary retention and low urine output. 3. Continue intravenous Invanz. 4. Continue leaving the bile tube to dependent drainage at this time. 5. Continue respiratory therapy. 05/14/17: Hospitalist consultation Urine output has been improving this morning compared to the night nurse. The last 3 hours, she has had 50 mL, 60 mL, and [address] output[address] Juarez has already ordered a fluid bolus. Her renal function is currently stable with BUN of 12 and creatinine of 0.8. Review of [facility] records show a consistent GFR greater than 60, and a baseline creatinine of 0.8. However, with her underlying hypertension and diabetes, she'll is at risk for chronic kidney disease; and with recent major surgery is at greater risk for acute kidney injury. Continue to monitor vital signs, preventing hypotension as able, which would contribute to reduced renal perfusion. Currently, her vital signs are stable, and her mean arterial pressure has typically been in the 80s. Leukocytosis - continue meropenem per attending. (Leukocytosis could be stress reaction) Mild hypernatremia - IV fluids. Monitor blood sugars. She has had some readings above 180. Start low correction sliding scale insulin. Hold metformin for now. [facility] records show that she is also taking glimepiride 2 mg daily. When she is medically cleared to advance her diet and is eating well, we could consider resuming glimepiride, monitoring closely for hypoglycemia. 05/15/17 - Hospitalist D/C Ho as urine output increase. Continue to monitor I/O and weights. Liver enzymes trending down - continue to home simvastatin and metformin. Recheck liver enzymes in am. Encourage IS for pulmonary toilet. Encourage ambulation to help respiratory status. Will check CXR in am. Continue with NS at 75 cc/hr - decrease as oral drive improves. Bowel function slowly returning. Tolerating clear liquid without nausea; no flatus reported. Stay with liquids for now. Blood sugars stable - continue to monitor and use ISS for control. 05/16/17 10:48 05/16/17 POD #3 (Surgery) Still having trouble with urinary retention, confirmed with bladder scan, a singe straight cath has been ordered. Will continue to monitor. LFT's have come down. WBC normal at 7.2 and HGB stable at 10.5 She is on full liquid diet, there are adequate bowel sounds, no flatus or BM per patient. Will add Dulcolax PO today. 05/16/17 Hospitalist Nursing to encourage void and monitor bladder scan. Liver enzymes decreasing - could restart simvastatin. Will continue to hold metformin - sugars stable and not on regular food. Dulcolax suppository given to help bowel function. Encourage ambulation to help functional status, respiratory status, and bowels. Decrease IVF to 50 cc/hr. Weight trending upwards. Medically improving - anticipate transfer to surgical floor today to continue care. Urinary retention continuing throughout day. Not sensing need to urinate. Will replace Ho and initiate bladder retraining. Sx okay with pt transferring to surgical floor. Orders written for transfer.
[2017-05-16] MEDS: SIMVASTATIN 40 MG TABLET PO SCH (20:54)
[2017-05-17] MEDS: METFORMIN 500 MG TABLET PO SCH ×2 (08:20→17:46)
[2017-05-17] MEDS: ENOXAPARIN 40 MG/0.4 ML INJECTION SQ SCH (08:20)
[2017-05-17] MEDS: PANTOPRAZOLE 40 MG INJECTION IVP SCH (08:20)
--- NOTE | 2017-05-17 08:33 | General Surgery Progress Note ---
Subjective Patient reports: still having pain (but it is getting less), tolerating liquids well (full liquids), no flatus, no bowel movement, afebrile, other (had to replace Ho yesterday due to chronic urinary retention, bladder training with Ho in progress, urine output is good.) - Vital Signs Last Vital Signs Temp 97.3 F 05/17/17 05:27 Pulse 92 05/17/17 05:27 Resp 16 05/17/17 06:00 BP 114/62 05/17/17 05:27 Pulse Ox 97 05/17/17 05:27 - Laboratory Result Diagrams: 05/17/17 04:38 05/16/17 19:30 - Abnormal Exam Abdominal: hypoactive bowel sounds - Normal Exam General: no acute distress Cardiovascular: regular rhythm, regular rate Respiratory: no labored breathing Abdominal: appropriately tender (the subcostal incision is usually quite painfu) , incision(s) (CDI, sarah present, open to air), other (KWABENA with serosangenous fluid, no bile) Additional Normal Findings: T-tube connection still leaking, new blue adapter and a different cap (IV lurelock adapter) applied. Assessment and Plan (1) Choledocholithiasis with acute cholecystitis with obstruction Current Visit: Yes Status: Acute (2) Urinary retention with incomplete bladder emptying Current Visit: Yes Status: Acute (3) Oliguria Current Visit: Yes Status: Acute (4) Postoperative urinary retention Current Visit: Yes Status: Acute (5) Diabetes mellitus Current Visit: Yes Status: Chronic Qualifiers: Diabetes mellitus type: type 2 Diabetes mellitus complication status: without complication Diabetes mellitus intermediate designer insulin use: without halfway use Qualified Code(s): E11.9 - Type 2 diabetes mellitus without complications (6) Schizophrenia Current Visit: Yes Status: Chronic Qualifiers: Schizophrenia type: unspecified Qualified Code(s): F20.9 - Schizophrenia, unspecified (7) Atelectasis Current Visit: Yes Status: Acute Problem details: noted on CXR 05/16 Plan: POD #4 Still no flatus per patient or BM, will encourage bowels again. Remains on O2 about 1-2 LNC,CXR indicates atelectasis, continue IS, Acapella, etc. KWABENA with serosanguineous fluid, T-tube "clamped" Urinary retention still a problem, bladder training with Ho in progress. Hospital Course Summary Disclaimer: The visit summary below is not to be considered part of the above Progress Note. Hospital Course: POD #1 surgery note IMPRESSION 1. Doing well overall following open cholecystectomy, intraoperative cholangiograms, common bile duct exploration, removal of common bile duct stones and T-tube cholangiograms on 05/13/2017. 2. Postoperative urinary retention. 3. Transient low urine output this morning. PLAN 1. Continue postoperative care in the intensive care unit. 2. The Ho catheter will be left in place yet at this time because of postoperative urinary retention and low urine output. 3. Continue intravenous Invanz. 4. Continue leaving the bile tube to dependent drainage at this time. 5. Continue respiratory therapy. 05/14/17: Hospitalist consultation Urine output has been improving this morning compared to the night shift manager. The last 3 hours, she has had 50 mL, 60 mL, and [address] output[address] Juarez has already ordered a fluid bolus. Her renal function is currently stable with BUN of 12 and creatinine of 0.8. Review of [facility] records show a consistent GFR greater than 60, and a baseline creatinine of 0.8. However, with her underlying hypertension and diabetes, she'll is at risk for chronic kidney disease; and with recent major surgery is at greater risk for acute kidney injury. Continue to monitor vital signs, preventing hypotension as able, which would contribute to reduced renal perfusion. Currently, her vital signs are stable, and her mean arterial pressure has typically been in the 80s. Leukocytosis - continue meropenem per attending. (Leukocytosis could be stress reaction) Mild hypernatremia - IV fluids. Monitor blood sugars. She has had some readings above 180. Start low correction sliding scale insulin. Hold metformin for now. [facility] records show that she is also taking glimepiride 2 mg daily. When she is medically cleared to advance her diet and is eating well, we could consider resuming glimepiride, monitoring closely for hypoglycemia. 05/15/17 - Hospitalist D/C Vic as urine output increase. Continue to monitor I/O and weights. Liver enzymes trending down - continue to home simvastatin and metformin. Recheck liver enzymes in am. Encourage IS for pulmonary toilet. Encourage ambulation to help respiratory status. Will check CXR in am. Continue with NS at 75 cc/hr - decrease as oral drive improves. Bowel function slowly returning. Tolerating clear liquid without nausea; no flatus reported. Stay with liquids for now. Blood sugars stable - continue to monitor and use ISS for control. 05/16/17 10:48 05/16/17 POD #3 (Surgery) Still having trouble with urinary retention, confirmed with bladder scan, a singe straight cath has been ordered. Will continue to monitor. LFT's have come down. WBC normal at 7.2 and HGB stable at 10.5 She is on full liquid diet, there are adequate bowel sounds, no flatus or BM per patient. Will add Dulcolax PO today. 05/16/17 Hospitalist Nursing to encourage void and monitor bladder scan. Liver enzymes decreasing - could restart simvastatin. Will continue to hold metformin - sugars stable and not on regular food. Dulcolax suppository given to help bowel function. Encourage ambulation to help functional status, respiratory status, and bowels. Decrease IVF to 50 cc/hr. Weight trending upwards. Medically improving - anticipate transfer to surgical floor today to continue care. Urinary retention continuing throughout day. Not sensing need to urinate. Will replace Ho and initiate bladder retraining. Sx okay with pt transferring to surgical floor. Orders written for transfer. 05/17/17 08:39 POD #4 Still no flatus per patient or BM, will encourage bowels again. Remains on O2 about 1-2 LNC,CXR indicates atelectasis, continue IS, Acapella, etc. KWABENA with serosanguineous fluid, T-tube "clamped" Urinary retention still a problem, bladder training with Ho in progress. Sepsis Assessment - Evaluation Sepsis screening result: No Definite Risk
[2017-05-17] MEDS ORDERED: BISACODYL 10 MG SUPPOSITORY RECTALLY ONE (08:40)
--- NOTE | 2017-05-17 10:30 | Progress Note ---
DATE 05/16/2017 FINDINGS I saw Mrs. Ba earlier today on morning rounds. Mrs. Ba was without complaints with the exception of some incisional discomfort. VITALS: Afebrile. Normotensive. Please refer to EMR. CHEST: Clear to auscultation bilaterally. HEART: Regular rate and rhythm. Normal S1 and S2 without gallops, murmurs or clicks. ABDOMEN: Surgical incisions were clean, dry and intact. No evidence for erythema. A T-tube was present within the right upper quadrant of the abdomen. Abdomen was soft with some incisional tenderness present. No evidence for guarding or rebound. LABORATORY/RADIOGRAPH EVALUATION The patient had a CBC and a CMP obtained today. This was reviewed. Her liver enzymes continue to improve. Hemoglobin has drifted down slightly but is stable at 10.5. ASSESSMENT 76-year-old female status post open cholecystectomy with formal common bile duct exploration secondary to acute/chronic cholecystitis with associated choledocholithiasis. Patient doing well. PLAN Will go ahead and clamp T-tube. Will continue with current care. Will advance diet as tolerated. Will likely move out to surgical floor later this evening or perhaps tomorrow. [facility] CAN[facility] CENTERFrancesco
[2017-05-17] MEDS: NS 1,000 ML IV SCH (10:33)
[2017-05-17] MEDS ORDERED: DiphenhydrAMINE 25 MG CAPSULE PO PRN (10:53)
[2017-05-17] MEDS: INSULIN ASPART 100unit/ml INJECTION SQ PRN ×2 (11:42→14:43)
--- NOTE | 2017-05-17 12:08 | Progress Note ---
Subjective: Mrs. Ba complained of mild nausea when seen but was taking drinks of water repetitively and reported that she had cream of wheat for breakfast. She remains on a full liquid diet and has had no emesis and denies abdominal pain. She denies flatus or bowel movement since surgery. She describes itching without rash and itching is greatest on her back. She's had minor lightheadedness and reports ambulating minimally since surgery. She denied dyspnea, fever, or palpitations. Objective Vital signs: Temperature 98.1 F 05/17/17 11:32 Pulse Rate 98 05/17/17 11:32 Respiratory Rate 18 05/17/17 11:32 Blood Pressure 132/64 05/17/17 11:32 Pulse Oximetry 97 05/17/17 11:32 Oxygen Delivery Method Room Air I/O 2300/2560 weight up 3 kg from admission EXAM General-NAD, alert, fluent speech HEENT-conjunctiva clear, sclera anicteric, oropharynx clear, no evidence of thrush Lungs-respirations nonlabored, breath sounds clear although diminished at the bases-panting respirations during exam but not spontaneously Cardiac-regular rhythm, S1-S2 Abd-soft, nontender, mildly distended, bowel sounds present Ext-without edema Skin-without rash Neuro-moving all extremities well Psych-calm, cooperative - Rhythm: Normal Sinus Rhythm Height/Weight/BMI: Height 1.51 m Weight 64.7 kg Body Mass Index 26.9 Results - Labs CBC & Chem 7: 05/17/17 04:38 05/16/17 19:30 Labs: Fasting blood sugar-126 Assessment and Plan (1) Diabetes mellitus Current visit: Yes Status: Chronic (2) Oliguria Current visit: Yes Status: Acute DVT Prophylaxis: Lovenox GI Prophylaxis: Protonix Resuscitation Status: Full Code Assessment and Plan: Assessment Type 2 diabetes mellitus, [id number]. Last hemoglobin A1c was 6.6% on 02/03/17. Normocytic anemia, surgical. Pruritus Urinary retention Postoperative hypoxia Oliguria - resolved Leukocytosis - improved Hypernatremia, mild - resolved. S/P Laparoscopic with conversion to open cholecystectomy with intraoperative cholangiogram, open common bile duct exploration & placement of T-tube. Elevated LFTs secondary to cholecystitis - resolving. Hyperlipidemia - on statin Hypertension - no medication required Schizophrenia - had been on Zyprexa in the past Right sided breast cancer, in remission. Peptic ulcer disease; GERD Insomnia Osteoporosis Plan Blood sugars well controlled on low-dose metformin. Tolerating full liquid diet, no bowel activity since surgery-bowel regimen per surgical team. Taking more than 1 L of fluids orally daily-discontinue supplemental IV fluids if okay with surgery. Postoperative hypoxia resolving-on 1.5 L O2 earlier today but most recently on room air. Increase physical activity-PT/OT ordered and nursing to ambulate. Continue bladder training for urinary retention. Will attempt to remove Ho catheter after bowel activity restored and patient mobile. Resume oral PPI in place of IV. Benadryl ordered for pruritus, no indication of urticaria or generalized rash. Discussed with nursing, telemetry reviewed by myself-sinus rhythm. Sepsis Assessment - Evaluation Sepsis screening result: No Definite Risk Hospital Course Summary Disclaimer: The visit summary below is not to be considered part of the above Progress Note. Hospital Course: POD #1 surgery note IMPRESSION 1. Doing well overall following open cholecystectomy, intraoperative cholangiograms, common bile duct exploration, removal of common bile duct stones and T-tube cholangiograms on 05/13/2017. 2. Postoperative urinary retention. 3. Transient low urine output this morning. PLAN 1. Continue postoperative care in the intensive care unit. 2. The Ho catheter will be left in place yet at this time because of postoperative urinary retention and low urine output. 3. Continue intravenous Invanz. 4. Continue leaving the bile tube to dependent drainage at this time. 5. Continue respiratory therapy. 05/14/17: Hospitalist consultation Urine output has been improving this morning compared to the software client architect. The last 3 hours, she has had 50 mL, 60 mL, and [address] output[address] Juarez has already ordered a fluid bolus. Her renal function is currently stable with BUN of 12 and creatinine of 0.8. Review of [facility] records show a consistent GFR greater than 60, and a baseline creatinine of 0.8. However, with her underlying hypertension and diabetes, she'll is at risk for chronic kidney disease; and with recent major surgery is at greater risk for acute kidney injury. Continue to monitor vital signs, preventing hypotension as able, which would contribute to reduced renal perfusion. Currently, her vital signs are stable, and her mean arterial pressure has typically been in the 80s. Leukocytosis - continue meropenem per attending. (Leukocytosis could be stress reaction) Mild hypernatremia - IV fluids. Monitor blood sugars. She has had some readings above 180. Start low correction sliding scale insulin. Hold metformin for now. [facility] records show that she is also taking glimepiride 2 mg daily. When she is medically cleared to advance her diet and is eating well, we could consider resuming glimepiride, monitoring closely for hypoglycemia. 05/15/17 - Hospitalist D/C Ho as urine output increase. Continue to monitor I/O and weights. Liver enzymes trending down - continue to home simvastatin and metformin. Recheck liver enzymes in am. Encourage IS for pulmonary toilet. Encourage ambulation to help respiratory status. Will check CXR in am. Continue with NS at 75 cc/hr - decrease as oral drive improves. Bowel function slowly returning. Tolerating clear liquid without nausea; no flatus reported. Stay with liquids for now. Blood sugars stable - continue to monitor and use ISS for control. 05/16/17 10:48 05/16/17 POD #3 (Surgery) Still having trouble with urinary retention, confirmed with bladder scan, a singe straight cath has been ordered. Will continue to monitor. LFT's have come down. WBC normal at 7.2 and HGB stable at 10.5 She is on full liquid diet, there are adequate bowel sounds, no flatus or BM per patient. Will add Dulcolax PO today. 05/16/17 Hospitalist Nursing to encourage void and monitor bladder scan. Liver enzymes decreasing - could restart simvastatin. Will continue to hold metformin - sugars stable and not on regular food. Dulcolax suppository given to help bowel function. Encourage ambulation to help functional status, respiratory status, and bowels. Decrease IVF to 50 cc/hr. Weight trending upwards. Medically improving - anticipate transfer to surgical floor today to continue care. Urinary retention continuing throughout day. Not sensing need to urinate. Will replace Ho and initiate bladder retraining. Sx okay with pt transferring to surgical floor. Orders written for transfer. 05/17/17 08:39 POD #4 Still no flatus per patient or BM, will encourage bowels again. Remains on O2 about 1-2 LNC,CXR indicates atelectasis, continue IS, Acapella, etc. KWABENA with serosanguineous fluid, T-tube "clamped" Urinary retention still a problem, bladder training with Ho in progress. 05/17/17 12:22 Blood sugars well controlled on low-dose metformin. Tolerating full liquid diet, no bowel activity since surgery-bowel regimen per surgical team. Taking more than 1 L of fluids orally daily-discontinue supplemental IV fluids if okay with surgery. Increase physical activity-PT/OT ordered and nursing to ambulate. Continue bladder training for urinary retention. Will attempt to remove Ho catheter after bowel activity restored and patient mobile. Resume oral PPI in place of IV. Benadryl ordered for pruritus, no indication of urticaria or generalized rash. Discussed with nursing, telemetry reviewed by myself-sinus rhythm.
--- NOTE | 2017-05-17 14:20 | Progress Note ---
DATE 05/17/2017 FINDINGS Mrs. Ba was in good spirits this morning. She states she is having some incisional discomfort. The patient was trying to get a hold of her sister on the telephone; it was difficult to interview the patient for she was fairly distracted. OBJECTIVE VITALS: Afebrile. Normotensive. Please refer to EMR. ABDOMEN: Soft, only minimal incisional tenderness present. J-P bulb drainage was serosanguineous/nonbilious in nature. LABORATORY/RADIOGRAPHIC EVALUATION The patient had a CBC today that was unremarkable. Hemoglobin is slightly decreased at 9.3. White count is stable at 7.0. ASSESSMENT 76-year-old female status post open cholecystectomy with formal common bile duct exploration. Patient doing well. PLAN Will continue with current care. If patient is tolerating her T-tube clamped and is tolerating a regular diet and her bowel activity has resumed I do believe the patient could be discharged at that time. I question the patient's ability to take care of herself at home. Will work with discharge planning. LUIS
[2017-05-17] MEDS: HYDROCODONE/APAP 5mg/325mg TABLET PO PRN (22:15)
[2017-05-17] MEDS: SIMVASTATIN 40 MG TABLET PO SCH (22:16)
[2017-05-18 03:41] VITALS: RESP 18
[2017-05-18] MEDS ORDERED: OMEPRAZOLE 20 MG CAPSULE PO SCH (06:30)
--- NOTE | 2017-05-18 08:27 | General Surgery Progress Note ---
Subjective Patient reports: feels better, pain is less, bowel movement (she states is was "big"), afebrile, other (Ho in place and bladder traning in progress. She states she has not been out of her room yet to ambulate. She thinks sister Deja can help take care of her at home.) - Vital Signs Last Vital Signs Temp 97.8 F 05/18/17 08:00 Pulse 100 05/18/17 08:00 Resp 18 05/18/17 08:00 BP 136/102 H 05/18/17 08:00 Pulse Ox 99 05/18/17 08:00 - Laboratory Result Diagrams: 05/18/17 04:18 05/18/17 04:18 - Normal Exam General: no acute distress Cardiovascular: regular rhythm, regular rate Respiratory: no labored breathing Abdominal: BS normo active x4, soft, appropriately tender, incision(s) (CDI, few sarah removed from subcostal incision.), other (Leg bag on T-tube that was placed during the night is removed, Blue adapter is cracked and replaced. Tube put back to "clamped." Will have to see if it still leaks, may need to place stop cock on T-tube if it keeps leaking.) Assessment and Plan (1) Choledocholithiasis with acute cholecystitis with obstruction Current Visit: Yes Status: Acute (2) Urinary retention with incomplete bladder emptying Current Visit: Yes Status: Acute (3) Oliguria Current Visit: Yes Status: Acute (4) Postoperative urinary retention Current Visit: Yes Status: Acute (5) Diabetes mellitus Current Visit: Yes Status: Chronic Qualifiers: Diabetes mellitus type: type 2 Diabetes mellitus complication status: without complication Diabetes mellitus ferry terminal agent insulin use: without ferry terminal agent use Qualified Code(s): E11.9 - Type 2 diabetes mellitus without complications (6) Schizophrenia Current Visit: Yes Status: Chronic Qualifiers: Schizophrenia type: unspecified Qualified Code(s): F20.9 - Schizophrenia, unspecified (7) Atelectasis Current Visit: Yes Status: Acute Problem details: noted on CXR 05/16 Plan: Fluids have been DC'd. Had a "big" BM per patient. She has been on full liquids but feel she can easily advance to regular consistent carb. PT/OT already ordered, would like to see her more ambulatory before discharge Would like her voiding adequately before discharge. Hospital Course Summary Disclaimer: The visit summary below is not to be considered part of the above Progress Note. Hospital Course: POD #1 surgery note IMPRESSION 1. Doing well overall following open cholecystectomy, intraoperative cholangiograms, common bile duct exploration, removal of common bile duct stones and T-tube cholangiograms on 05/13/2017. 2. Postoperative urinary retention. 3. Transient low urine output this morning. PLAN 1. Continue postoperative care in the intensive care unit. 2. The Ho catheter will be left in place yet at this time because of postoperative urinary retention and low urine output. 3. Continue intravenous Invanz. 4. Continue leaving the bile tube to dependent drainage at this time. 5. Continue respiratory therapy. 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 The last 3 hours, she has had 50 mL, 60 mL, and [address] output[address] Juarez has already ordered a fluid bolus. Her renal function is currently stable with BUN of 12 and creatinine of 0.8. Review of [facility] records show a consistent GFR greater than 60, and a baseline creatinine of 0.8. However, with her underlying hypertension and diabetes, she'll is at risk for chronic kidney disease; and with recent major surgery is at greater risk for acute kidney injury. Continue to monitor vital signs, preventing hypotension as able, which would contribute to reduced renal perfusion. Currently, her vital signs are stable, and her mean arterial pressure has typically been in the 80s. Leukocytosis - continue meropenem per attending. (Leukocytosis could be stress reaction) Mild hypernatremia - IV fluids. Monitor blood sugars. She has had some readings above 180. Start low correction sliding scale insulin. Hold metformin for now. [facility] records show that she is also taking glimepiride 2 mg daily. When she is medically cleared to advance her diet and is eating well, we could consider resuming glimepiride, monitoring closely for hypoglycemia. 05/15/17 - Hospitalist D/C Vic as urine output increase. Continue to monitor I/O and weights. Liver enzymes trending down - continue to home simvastatin and metformin. Recheck liver enzymes in am. Encourage IS for pulmonary toilet. Encourage ambulation to help respiratory status. Will check CXR in am. Continue with NS at 75 cc/hr - decrease as oral drive improves. Bowel function slowly returning. Tolerating clear liquid without nausea; no flatus reported. Stay with liquids for now. Blood sugars stable - continue to monitor and use ISS for control. 05/16/17 10:48 05/16/17 POD #3 (Surgery) Still having trouble with urinary retention, confirmed with bladder scan, a singe straight cath has been ordered. Will continue to monitor. LFT's have come down. WBC normal at 7.2 and HGB stable at 10.5 She is on full liquid diet, there are adequate bowel sounds, no flatus or BM per patient. Will add Dulcolax PO today. 05/16/17 Hospitalist Nursing to encourage void and monitor bladder scan. Liver enzymes decreasing - could restart simvastatin. Will continue to hold metformin - sugars stable and not on regular food. Dulcolax suppository given to help bowel function. Encourage ambulation to help functional status, respiratory status, and bowels. Decrease IVF to 50 cc/hr. Weight trending upwards. Medically improving - anticipate transfer to surgical floor today to continue care. Urinary retention continuing throughout day. Not sensing need to urinate. Will replace Ho and initiate bladder retraining. Sx okay with pt transferring to surgical floor. Orders written for transfer. 05/17/17 08:39 POD #4 Still no flatus per patient or BM, will encourage bowels again. Remains on O2 about 1-2 LNC,CXR indicates atelectasis, continue IS, Acapella, etc. KWAEBNA with serosanguineous fluid, T-tube "clamped" Urinary retention still a problem, bladder training with Ho in progress. 05/17/17 12:22 Blood sugars well controlled on low-dose metformin. Tolerating full liquid diet, no bowel activity since surgery-bowel regimen per surgical team. Taking more than 1 L of fluids orally daily-discontinue supplemental IV fluids if okay with surgery. Increase physical activity-PT/OT ordered and nursing to ambulate. Continue bladder training for urinary retention. Will attempt to remove Ho catheter after bowel activity restored and patient mobile. Resume oral PPI in place of IV. Benadryl ordered for pruritus, no indication of urticaria or generalized rash. Discussed with nursing, telemetry reviewed by myself-sinus rhythm. 05/18/17 08:31 Fluids have been DC'd. Had a "big" BM per patient. She has been on full liquids but feel she can easily advance to regular consistent carb. PT/OT already ordered, would like to see her more ambulatory before discharge Would like her voiding adequately before discharge Sepsis Assessment - Evaluation Sepsis screening result: No Definite Risk
[2017-05-18] MEDS: METFORMIN 500 MG TABLET PO SCH (09:39)
[2017-05-18] MEDS: ENOXAPARIN 40 MG/0.4 ML INJECTION SQ SCH (09:39)
[2017-05-18 12:09] VITALS: BP 155/72; PULSE 96; TEMP 98.2; O2SAT 97
--- NOTE | 2017-05-18 12:35 | General Surgery Progress Note ---
Subjective Narrative: She qualifies for IRU and tells me she will be going this afternoon. The T-tube connection is still leaking a little, enough to saturate 2 drain sponges since 8am. I changed the connection to a 3-way stop cock, and taped all the ports so hopefully it stays in the "off" or "clamped" position. New Drain sponges applied. KWABENA still with serosanguineous fluid in the bulb and tubing. - Vital Signs Last Vital Signs Temp 98.2 F 05/18/17 12:00 Pulse 96 05/18/17 12:00 Resp 18 05/18/17 12:00 BP 155/72 H 05/18/17 12:00 Pulse Ox 97 05/18/17 12:00 - Laboratory Result Diagrams: 05/18/17 04:18 05/18/17 04:18 Assessment and Plan (1) Choledocholithiasis with acute cholecystitis with obstruction Current Visit: Yes Status: Acute (2) Urinary retention with incomplete bladder emptying Current Visit: Yes Status: Acute (3) Oliguria Current Visit: Yes Status: Acute (4) Postoperative urinary retention Current Visit: Yes Status: Acute (5) Diabetes mellitus Current Visit: Yes Status: Chronic Qualifiers: Diabetes mellitus type: type 2 Diabetes mellitus complication status: without complication Diabetes mellitus skilled nursing insulin use: without skilled nursing use Qualified Code(s): E11.9 - Type 2 diabetes mellitus without complications (6) Schizophrenia Current Visit: Yes Status: Chronic Qualifiers: Schizophrenia type: unspecified Qualified Code(s): F20.9 - Schizophrenia, unspecified (7) Atelectasis Current Visit: Yes Status: Acute Problem details: noted on CXR 05/16 Plan: Different "clamp" placed on T-tube and secured, hope this stops the leak. Agree with transfer to IRU. Not sure if she has voided since DC Ho, will continue to monitor. Hospital Course Summary Disclaimer: The visit summary below is not to be considered part of the above Progress Note. Hospital Course: POD #1 surgery note IMPRESSION 1. Doing well overall following open cholecystectomy, intraoperative cholangiograms, common bile duct exploration, removal of common bile duct stones and T-tube cholangiograms on 05/13/2017. 2. Postoperative urinary retention. 3. Transient low urine output this morning. PLAN 1. Continue postoperative care in the intensive care unit. 2. The Ho catheter will be left in place yet at this time because of postoperative urinary retention and low urine output. 3. Continue intravenous Invanz. 4. Continue leaving the bile tube to dependent drainage at this time. 5. Continue respiratory therapy. 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 The last 3 hours, she has had 50 mL, 60 mL, and [address] Juarez has already ordered a fluid bolus. Her renal function is currently stable with BUN of 12 and creatinine of 0.8. Review of [facility] records show a consistent GFR greater than 60, and a baseline creatinine of 0.8. However, with her underlying hypertension and diabetes, she'll is at risk for chronic kidney disease; and with recent major surgery is at greater risk for acute kidney injury. Continue to monitor vital signs, preventing hypotension as able, which would contribute to reduced renal perfusion. Currently, her vital signs are stable, and her mean arterial pressure has typically been in the 80s. Leukocytosis - continue meropenem per attending. (Leukocytosis could be stress reaction) Mild hypernatremia - IV fluids. Monitor blood sugars. She has had some readings above 180. Start low correction sliding scale insulin. Hold metformin for now. [facility] records show that she is also taking glimepiride 2 mg daily. When she is medically cleared to advance her diet and is eating well, we could consider resuming glimepiride, monitoring closely for hypoglycemia. 05/15/17 - Hospitalist D/C Ho as urine output increase. Continue to monitor I/O and weights. Liver enzymes trending down - continue to home simvastatin and metformin. Recheck liver enzymes in am. Encourage IS for pulmonary toilet. Encourage ambulation to help respiratory status. Will check CXR in am. Continue with NS at 75 cc/hr - decrease as oral drive improves. Bowel function slowly returning. Tolerating clear liquid without nausea; no flatus reported. Stay with liquids for now. Blood sugars stable - continue to monitor and use ISS for control. 05/16/17 10:48 05/16/17 POD #3 (Surgery) Still having trouble with urinary retention, confirmed with bladder scan, a singe straight cath has been ordered. Will continue to monitor. LFT's have come down. WBC normal at 7.2 and HGB stable at 10.5 She is on full liquid diet, there are adequate bowel sounds, no flatus or BM per patient. Will add Dulcolax PO today. 05/16/17 Hospitalist Nursing to encourage void and monitor bladder scan. Liver enzymes decreasing - could restart simvastatin. Will continue to hold metformin - sugars stable and not on regular food. Dulcolax suppository given to help bowel function. Encourage ambulation to help functional status, respiratory status, and bowels. Decrease IVF to 50 cc/hr. Weight trending upwards. Medically improving - anticipate transfer to surgical floor today to continue care. Urinary retention continuing throughout day. Not sensing need to urinate. Will replace Ho and initiate bladder retraining. Sx okay with pt transferring to surgical floor. Orders written for transfer. 05/17/17 08:39 POD #4 Still no flatus per patient or BM, will encourage bowels again. Remains on O2 about 1-2 LNC,CXR indicates atelectasis, continue IS, Acapella, etc. KWABENA with serosanguineous fluid, T-tube "clamped" Urinary retention still a problem, bladder training with Ho in progress. 05/17/17 12:22 Blood sugars well controlled on low-dose metformin. Tolerating full liquid diet, no bowel activity since surgery-bowel regimen per surgical team. Taking more than 1 L of fluids orally daily-discontinue supplemental IV fluids if okay with surgery. Increase physical activity-PT/OT ordered and nursing to ambulate. Continue bladder training for urinary retention. Will attempt to remove Ho catheter after bowel activity restored and patient mobile. Resume oral PPI in place of IV. Benadryl ordered for pruritus, no indication of urticaria or generalized rash. Discussed with nursing, telemetry reviewed by myself-sinus rhythm. 05/18/17 08:31 Fluids have been DC'd. Had a "big" BM per patient. She has been on full liquids but feel she can easily advance to regular consistent carb. PT/OT already ordered, would like to see her more ambulatory before discharge Would like her voiding adequately before discharge Sepsis Assessment - Evaluation Sepsis screening result: No Definite Risk
[2017-05-18] MEDS: INSULIN ASPART 100unit/ml INJECTION SQ PRN (12:44)
[2017-05-18] MEDS: HYDROCODONE/APAP 5mg/325mg TABLET PO PRN (12:44)
--- NOTE | 2017-05-18 12:45 | Discharge Instructions ---
Discharge Plan - Med Rec/Dispo Prescriptions: Continue Multivitamin [One Daily] 1 tab PO DAILY Esomeprazole Magnesium [Nexium] 40 mg PO DAILY Simvastatin [Zocor] 40 mg PO HS [place]-3/Dha/Epa/Fish Oil [Fish Oil 1,000 mg Softgel] 1 each PO DAILY Metformin [Glucophage] 500 mg PO BID Calcium Carbonate [Calcium] 1 tab PO HS Levofloxacin [Levaquin] 750 mg PO DAILY #7 tablet Discharge Instructions/Outpatient Orders: Final Provider Discharge Instructions Location: Determined By Patient - [place] 61 [place] [facility] [place]
--- NOTE | 2017-05-18 12:58 | Discharge Summary ---
Discharge Information Date of admission: 05/13/17 19:31 Attending Physician: Sunil Cantu MD Primary care physician: Sridhar Chaudhry MD Consults: 05/13/17 11:56 Consult to Anesthesiology [CONS] Routine Consulting Provider: MARK Almaguer Reason For Exam: PREADMISSION SCREENING 05/14/17 07:42 Physician Consult [CONS] Routine Consulting Provider: Denver Juarez Reason For Exam: medical management; low outputs Ordering Provider has Notified Child Protective Investigator: Eva 05/18/17 IRU Screening [Inpatient Rehab Screening] [CONS] Routine Screen requested by:: Case Management Comment Text:: pt comes from home - Discharge Diagnosis Discharge Diagnosis: Acute cholecystitis cholelithiasis with choledocholithiasis with common bile duct obstruction oliguria urinary retention atelectasis pulmonary HTN DM type 2 GERD schizophrenia - Procedures Procedures: 05/13/2017 SURGEON Sunil Cantu MD JOB COACHING Alex Rubio MD PREOPERATIVE DIAGNOSIS Symptomatic cholelithiasis, possible choledocholithiasis. POSTOPERATIVE DIAGNOSIS Acute/chronic cholecystitis, choledocholithiasis. PROCEDURE Attempted laparoscopic cholecystectomy with conversion to open cholecystectomy and common bile duct exploration. - Laboratory Labs: 05/18/17 04:18 05/18/17 04:18 - Radiology Radiology: 05/16/17 CXR IMPRESSION: 1. The heart is mildly enlarged without CHF. 2. Mild bibasal atelectasis or scarring suggested. - Pathology Pending at time of discharge - History of Present Illness HPI: BRIEF HISTORY/INDICATIONS Mrs. Ba is a 76-year-old female whom I was asked to see earlier this week through the emergency room. The patient apparently had earlier this week an episode of abdominal pain that lasted for a couple of days. The patient subsequently presented to her PCP and evaluation was undertaken. Lab work was obtained through the office and her bilirubin was found to be elevated at 4. The patient subsequently underwent a CT scan that did reveal evidence for cholelithiasis and probable choledocholithiasis. Repeat lab in the ER revealed that her bilirubin was on a downward trend. The patient's abdominal pain at that time had resolved. Patient was subsequently sent to my office the following day. As a result of the above indications the patient was scheduled undergo cholecystectomy. Hospital Course This is a general summary of the patient's hospital course. For more details refer to the complete medical record. Hospital course: POD #1 surgery note IMPRESSION 1. Doing well overall following open cholecystectomy, intraoperative cholangiograms, common bile duct exploration, removal of common bile duct stones and T-tube cholangiograms on 05/13/2017. 2. Postoperative urinary retention. 3. Transient low urine output this morning. PLAN 1. Continue postoperative care in the intensive care unit. 2. The Ho catheter will be left in place yet at this time because of postoperative urinary retention and low urine output. 3. Continue intravenous Invanz. 4. Continue leaving the bile tube to dependent drainage at this time. 5. Continue respiratory therapy. 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 The last 3 hours, she has had 50 mL, 60 mL, and [address] Juarez has already ordered a fluid bolus. Her renal function is currently stable with BUN of 12 and creatinine of 0.8. Review of [facility] records show a consistent GFR greater than 60, and a baseline creatinine of 0.8. However, with her underlying hypertension and diabetes, she'll is at risk for chronic kidney disease; and with recent major surgery is at greater risk for acute kidney injury. Continue to monitor vital signs, preventing hypotension as able, which would contribute to reduced renal perfusion. Currently, her vital signs are stable, and her mean arterial pressure has typically been in the 80s. Leukocytosis - continue meropenem per attending. (Leukocytosis could be stress reaction) Mild hypernatremia - IV fluids. Monitor blood sugars. She has had some readings above 180. Start low correction sliding scale insulin. Hold metformin for now. [facility] records show that she is also taking glimepiride 2 mg daily. When she is medically cleared to advance her diet and is eating well, we could consider resuming glimepiride, monitoring closely for hypoglycemia. 05/15/17 - Hospitalist D/C Vic as urine output increase. Continue to monitor I/O and weights. Liver enzymes trending down - continue to home simvastatin and metformin. Recheck liver enzymes in am. Encourage IS for pulmonary toilet. Encourage ambulation to help respiratory status. Will check CXR in am. Continue with NS at 75 cc/hr - decrease as oral drive improves. Bowel function slowly returning. Tolerating clear liquid without nausea; no flatus reported. Stay with liquids for now. Blood sugars stable - continue to monitor and use ISS for control. 05/16/17 10:48 05/16/17 POD #3 (Surgery) Still having trouble with urinary retention, confirmed with bladder scan, a singe straight cath has been ordered. Will continue to monitor. LFT's have come down. WBC normal at 7.2 and HGB stable at 10.5 She is on full liquid diet, there are adequate bowel sounds, no flatus or BM per patient. Will add Dulcolax PO today. 05/16/17 Hospitalist Nursing to encourage void and monitor bladder scan. Liver enzymes decreasing - could restart simvastatin. Will continue to hold metformin - sugars stable and not on regular food. Dulcolax suppository given to help bowel function. Encourage ambulation to help functional status, respiratory status, and bowels. Decrease IVF to 50 cc/hr. Weight trending upwards. Medically improving - anticipate transfer to surgical floor today to continue care. Urinary retention continuing throughout day. Not sensing need to urinate. Will replace Ho and initiate bladder retraining. Sx okay with pt transferring to surgical floor. Orders written for transfer. 05/17/17 08:39 POD #4 Still no flatus per patient or BM, will encourage bowels again. Remains on O2 about 1-2 LNC,CXR indicates atelectasis, continue IS, Acapella, etc. KWABENA with serosanguineous fluid, T-tube "clamped" Urinary retention still a problem, bladder training with Ho in progress. 05/17/17 12:22 Blood sugars well controlled on low-dose metformin. Tolerating full liquid diet, no bowel activity since surgery-bowel regimen per surgical team. Taking more than 1 L of fluids orally daily-discontinue supplemental IV fluids if okay with surgery. Increase physical activity-PT/OT ordered and nursing to ambulate. Continue bladder training for urinary retention. Will attempt to remove Ho catheter after bowel activity restored and patient mobile. Resume oral PPI in place of IV. Benadryl ordered for pruritus, no indication of urticaria or generalized rash. Discussed with nursing, telemetry reviewed by myself-sinus rhythm. 05/18/17 08:31 Fluids have been DC'd. Had a "big" BM per patient. She has been on full liquids but feel she can easily advance to regular consistent carb. PT/OT already ordered, would like to see her more ambulatory before discharge She passed IRU screen and can be transferred to IRU for treatment of debility. We will continue to follow her in IRU and monitor T-tube and KWABENA drain. Time spent with patient: 25 - 35 minutes DVT Prophylaxis: SCD's, Lovenox GI Prophylaxis: Protonix Discharge Plan - Med Rec/Dispo Prescriptions: Continue Multivitamin [One Daily] 1 tab PO DAILY Esomeprazole Magnesium [Nexium] 40 mg PO DAILY Simvastatin [Zocor] 40 mg PO HS [place]-3/Dha/Epa/Fish Oil [Fish Oil 1,000 mg Softgel] 1 each PO DAILY Metformin [Glucophage] 500 mg PO BID Calcium Carbonate [Calcium] 1 tab PO HS Levofloxacin [Levaquin] 750 mg PO DAILY #7 tablet Discharge Instructions/Outpatient Orders: Final Provider Discharge Instructions Location: Determined By Patient - Disposition 62 To [facility]
--- NOTE | 2017-05-18 13:01 | Progress Note ---
Subjective: Mrs. Ba was up in a chair when seen reports that she did well with physical therapy. She was able to ambulate short distances without lightheadedness. She denies weakness. She's had no dyspnea or palpitations. Diet has been advanced to regular food which she tolerated well this morning. She had a bowel movement yesterday and reports that she has a sensation of needing to void when the Ho catheter was clamped. She has minor discomfort in her right upper quadrant but no nausea today. She is tentatively scheduled for discharge to rehabilitation later today. Objective Vital signs: Temperature 98.2 F 05/18/17 12:00 Pulse Rate 96 05/18/17 12:00 Respiratory Rate 18 05/18/17 12:00 Blood Pressure 155/72 H 05/18/17 12:00 Pulse Oximetry 97 05/18/17 12:00 Oxygen Delivery Method Nasal Cannula Oxygen Flow Rate 2 Fraction of Inspired Oxygen 25 I/O 3210/2950 EXAM General-NAD, alert HEENT-conjunctiva clear Lungs-respirations nonlabored, good airflow, breath sounds clear posteriorly Cardiac-regular rhythm, S1-S2 Abd-soft, mildly distended, mildly tender in the right upper quadrant, bowel sounds present Ext-without edema Neuro-moving all extremities well Psych-slightly anxious but cooperative - Rhythm: Normal Sinus Rhythm Height/Weight/BMI: Height 1.51 m Weight 65 kg Body Mass Index 26.9 Results - Labs CBC & Chem 7: 05/18/17 04:18 05/18/17 04:18 Labs: Liver enzymes have normalized except minor elevation of ALT at 61 Assessment and Plan (1) Diabetes mellitus Current visit: Yes Status: Chronic (2) Oliguria Current visit: Yes Status: Acute Resuscitation Status: Full Code Assessment and Plan: Assessment Type 2 diabetes mellitus, [id number]. Last hemoglobin A1c was 6.6% on 02/03/17. Normocytic anemia, surgical. Pruritus Urinary retention Postoperative hypoxia Oliguria - resolved Leukocytosis - improved Hypernatremia, mild - resolved. S/P Laparoscopic with conversion to open cholecystectomy with intraoperative cholangiogram, open common bile duct exploration & placement of T-tube. Elevated LFTs secondary to cholecystitis - resolving. Hyperlipidemia - on statin Hypertension - no medication required Schizophrenia - had been on Zyprexa in the past Right sided breast cancer, in remission. Peptic ulcer disease; GERD Insomnia Osteoporosis Plan Postprandial blood sugars slightly higher today after diet advanced-will continue to monitor with increased activity. Diabetic diet, metformin for management. Good oral intake. Anticipate removal of Ho catheter prior to transfer. Taking more than 1 L of fluids orally daily-discontinue supplemental IV fluids if okay with surgery. Back on oxygen at the time of assessment-unclear why is no hypoxia documented and reported to have oxygen saturations of 99% on room air overnight. Patient concerned that her medications are not correct-nephew to bring in pill bottles from home so dosing/meds can be clarified. Spoke with patient and her nephew regarding her concerns. Discussed with nursing, case management; telemetry reviewed by myself-sinus rhythm. Sepsis Assessment - Evaluation Sepsis screening result: No Definite Risk Hospital Course Summary Disclaimer: The visit summary below is not to be considered part of the above Progress Note. Hospital Course: POD #1 surgery note IMPRESSION 1. Doing well overall following open cholecystectomy, intraoperative cholangiograms, common bile duct exploration, removal of common bile duct stones and T-tube cholangiograms on 05/13/2017. 2. Postoperative urinary retention. 3. Transient low urine output this morning. PLAN 1. Continue postoperative care in the intensive care unit. 2. The Ho catheter will be left in place yet at this time because of postoperative urinary retention and low urine output. 3. Continue intravenous Invanz. 4. Continue leaving the bile tube to dependent drainage at this time. 5. Continue respiratory therapy. 05/14/17: Hospitalist consultation Urine output has been improving this morning compared to the software testing specialist. The last 3 hours, she has had 50 mL, 60 mL, and [address] Juarez has already ordered a fluid bolus. Her renal function is currently stable with BUN of 12 and creatinine of 0.8. Review of [facility] records show a consistent GFR greater than 60, and a baseline creatinine of 0.8. However, with her underlying hypertension and diabetes, she'll is at risk for chronic kidney disease; and with recent major surgery is at greater risk for acute kidney injury. Continue to monitor vital signs, preventing hypotension as able, which would contribute to reduced renal perfusion. Currently, her vital signs are stable, and her mean arterial pressure has typically been in the 80s. Leukocytosis - continue meropenem per attending. (Leukocytosis could be stress reaction) Mild hypernatremia - IV fluids. Monitor blood sugars. She has had some readings above 180. Start low correction sliding scale insulin. Hold metformin for now. [facility] records show that she is also taking glimepiride 2 mg daily. When she is medically cleared to advance her diet and is eating well, we could consider resuming glimepiride, monitoring closely for hypoglycemia. 05/15/17 - Hospitalist D/C Ho as urine output increase. Continue to monitor I/O and weights. Liver enzymes trending down - continue to home simvastatin and metformin. Recheck liver enzymes in am. Encourage IS for pulmonary toilet. Encourage ambulation to help respiratory status. Will check CXR in am. Continue with NS at 75 cc/hr - decrease as oral drive improves. Bowel function slowly returning. Tolerating clear liquid without nausea; no flatus reported. Stay with liquids for now. Blood sugars stable - continue to monitor and use ISS for control. 05/16/17 10:48 05/16/17 POD #3 (Surgery) Still having trouble with urinary retention, confirmed with bladder scan, a singe straight cath has been ordered. Will continue to monitor. LFT's have come down. WBC normal at 7.2 and HGB stable at 10.5 She is on full liquid diet, there are adequate bowel sounds, no flatus or BM per patient. Will add Dulcolax PO today. 05/16/17 Hospitalist Nursing to encourage void and monitor bladder scan. Liver enzymes decreasing - could restart simvastatin. Will continue to hold metformin - sugars stable and not on regular food. Dulcolax suppository given to help bowel function. Encourage ambulation to help functional status, respiratory status, and bowels. Decrease IVF to 50 cc/hr. Weight trending upwards. Medically improving - anticipate transfer to surgical floor today to continue care. Urinary retention continuing throughout day. Not sensing need to urinate. Will replace Ho and initiate bladder retraining. Sx okay with pt transferring to surgical floor. Orders written for transfer. 05/17/17 08:39 POD #4 Still no flatus per patient or BM, will encourage bowels again. Remains on O2 about 1-2 LNC,CXR indicates atelectasis, continue IS, Acapella, etc. KWABENA with serosanguineous fluid, T-tube "clamped" Urinary retention still a problem, bladder training with Ho in progress. 05/17/17 12:22 Blood sugars well controlled on low-dose metformin. Tolerating full liquid diet, no bowel activity since surgery-bowel regimen per surgical team. Taking more than 1 L of fluids orally daily-discontinue supplemental IV fluids if okay with surgery. Increase physical activity-PT/OT ordered and nursing to ambulate. Continue bladder training for urinary retention. Will attempt to remove Ho catheter after bowel activity restored and patient mobile. Resume oral PPI in place of IV. Benadryl ordered for pruritus, no indication of urticaria or generalized rash. Discussed with nursing, telemetry reviewed by myself-sinus rhythm. 05/18/17 08:31 Fluids have been DC'd. Had a "big" BM per patient. She has been on full liquids but feel she can easily advance to regular consistent carb. PT/OT already ordered, would like to see her more ambulatory before discharge Would like her voiding adequately before discharge
--- NOTE | 2017-05-18 14:47 | Progress Note ---
DATE 05/18/2017 FINDINGS Alicia today is without complaints. Still has a component of some incisional discomfort. EXAM VITALS: Afebrile. Normotensive. ABDOMEN: Soft, incisional tenderness present. Incision is clean, dry, and intact. T-tube is clamped at this time. J-P bulb remains to be serosanguineous. LABORATORY/RADIOGRAPHIC EVALUATION The patient had a CBC and CMP today that was unremarkable. Hemoglobin is slightly improved at 10.3. LFTs are stable. ASSESSMENT 76-year-old female status post open cholecystectomy with formal common bile duct exploration secondary to acute/chronic cholecystitis and choledocholithiasis. Patient currently doing well. PLAN The patient will be transferred to the rehab unit. Will pull J-P tomorrow if it remains to be serosanguineous. Otherwise continue with current care. LUIS
== END 2017-05-18 15:20 | DRG 412 ==
LOC: SUR 11:52 → SRG 11:58 → CCU 19:00 → SRG 05-16 19:15
PROVIDERS: ADMIT Surgery; ATTEND Surgery

== ENCOUNTER 2017-05-18 15:32 | Inpatient (IN) ==
[2017-05-18 16:16] VITALS: BMI 29.7
[2017-05-18] MEDS ORDERED: SALINE FLUSH 10ml SYRINGE IV PRN (18:12)
[2017-05-18] MEDS ORDERED: KETOROLAC 15 MG/ML INJECTION IVP PRN (18:12)
[2017-05-18] MEDS ORDERED: METOCLOPRAMIDE 10mg/2ml INJECTION IVP PRN (18:12)
[2017-05-18] MEDS ORDERED: MORPHINE SULFATE 2 MG SYRINGE IVP PRN (18:12)
[2017-05-18] MEDS ORDERED: DiphenhydrAMINE 25 MG CAPSULE PO PRN (18:12)
[2017-05-18] MEDS ORDERED: ONDANSETRON 4 MG/2 ML INJECTION IVP PRN (18:12)
[2017-05-18] MEDS: METFORMIN 500 MG TABLET PO SCH ×2 (18:46)
[2017-05-18] MEDS: HYDROCODONE/APAP 5mg/325mg TABLET PO PRN (19:36)
[2017-05-18] MEDS: POLYETHYL GLYCOL 3350 17gm PACKET PO PRN (20:15)
[2017-05-18] MEDS: SIMVASTATIN 40 MG TABLET PO SCH (20:16)
[2017-05-19] MEDS: OMEPRAZOLE 20 MG CAPSULE PO SCH (06:24)
[2017-05-19] MEDS ORDERED: METFORMIN 500 MG TABLET PO SCH (08:00)
[2017-05-19] MEDS: ENOXAPARIN 40 MG/0.4 ML INJECTION SQ SCH (08:29)
[2017-05-19] MEDS: HYDROCODONE/APAP 5mg/325mg TABLET PO PRN ×3 (08:29→20:56)
[2017-05-19] MEDS: METFORMIN 500 MG TABLET PO SCH ×2 (08:29→17:31)
--- NOTE | 2017-05-19 09:37 | Consult Note ---
<RuthyKrystal D - Last Filed: 05/19/17 13:10> Consult Information - Data of Consult Patient: known to practice within the last 3 years Consult date: 05/19/17 Requesting Physician: Francisco Vega MD Primary Care Provider: Sridhar Chaudhry MD Family Provider: Sridhar Chaudhry MD - Consult Narrative Reason for consult: Anemia; diabetes History of present illness: Alicia Ba is a 76-year-old woman who was hospitalized from 05/13/17- for acute cholecystitis. She had an open cholecystectomy on 05/13/17; she had a KWABENA drain and a T-tube. She received Invanz. Postoperatively she had oliguria, so catheter discontinuation was delayed (Ho was discontinued on 05/15/17 but she had urinary retention prompting reinsertion on 05/16/17). With IVF, her urine output improved. Her renal status remained stable. Her oral intake gradually improved and she had a BM on 05/18/17. Her labs postop remained stable ; though she did have hyperglycemia and SSI was utilized. She worked with therapy, and was felt to be a good candidate for IRU. She was able to be discharged from acute care on 05/18/17 and was admitted to IRU. Alicia was seen in the morning of 05/19/17. She complains of abdominal pain and mild leg weakness. She does not care for SSI. She had nausea earlier but that has resolved. Otherwise, ROS was largely negative. PFSH Type 2 DM, noninsulin dependent. Hgb A1c was 6.6% on 02/03/17. HLD HTN Schizophrenia Right breast cancer, resolved. PUD, GERD Insomnia Osteoporosis Surgical History: 05/13/17: Laparoscopic with conversion to open cholecystectomy with intraoperative cholangiogram, open common bile duct exploration and placement of T-tube. (Dr. Cantu). 05/05/17: Screening colonoscopy: Moderate sigmoid diverticulosis. (Dr. Cantu). EGD and colonoscopy: 2005. Right sided mastectomy 1986. D&C 1985 Family History: Mother had diabetes. Brother - EtOH abuse; liver failure; pancreatic cancer Sister - diabetes - Social History Smoking status: Former smoker (quit about 28 years ago) Substance use type: does not use Alcohol intake frequency: does not drink Social history: PCP - Richa Review of Systems Comprehensive ROS: completed and no additional positive findings except those as stated - Constitutional Constitutional: Present: fatigue. Absent: fever(s) - EENMT Eyes: Absent: change in vision Mouth/Throat: Absent: sore throat, changes in swallowing - Cardiovascular Cardiovascular: Absent: chest pain, dyspnea on exertion - Respiratory Respiratory: Absent: cough, dyspnea - Gastrointestinal Gastrointestinal: Present: abdominal pain. Absent: constipation, nausea ( improving), vomiting - Musculoskeletal Musculoskeletal: Present: muscle weakness - Neurological Neurological: Present: weakness. Absent: abnormal speech, dizziness, headache(s ) - Psychiatric Psychiatric: Present: anxiety - Hematologic/Lymphatic Hematologic/Lymphatic: Absent: easy bleeding Medications Home Medications Medication Instructions Recorded Confirmed Type Esomeprazole Magnesium [Nexium] 40 mg PO DAILY 05/04/17 05/18/17 History Metformin [Glucophage] 500 mg PO BID 05/04/17 05/18/17 History Multivitamin [One Daily] 1 tab PO DAILY 05/04/17 05/18/17 History Simvastatin [Zocor] 40 mg PO HS 05/04/17 05/18/17 History Calcium Carbonate [Calcium] 1 tab PO HS 05/11/17 05/18/17 History [place]-3/Dha/Epa/Fish Oil [Fish Oil 1 each PO DAILY 05/11/17 05/18/17 History 1,000 mg Softgel] Allergies Allergy/AdvReac Type Severity Reaction Status Date / Time No Known Allergies Allergy Verified 05/13/17 12:07 Exam Vital Signs: Temperature 97.6 F 05/19/17 08:28 Pulse Rate 109 H 05/19/17 08:28 Respiratory Rate 16 05/19/17 08:28 Blood Pressure 150/72 H 05/19/17 08:28 Pulse Oximetry 96 05/19/17 08:28 Oxygen Delivery Method Room Air Oxygen Flow Rate 1 Height/Weight/BMI: Height 1.5 m Weight 66.8 kg Body Mass Index 29.7 - Constitutional Present: no acute distress, well nourished, well developed - Routine HEENT Exam Eye: Present: PERRL. Absent: conjunctival icterus, scleral injection ENT: Present: mucous membranes moist, oropharynx clear - Routine Neck Exam Absent: lymphadenopathy, thyromegaly, tenderness - Routine Respiratory Exam Present: CTA bilaterally - Routine Cardiovascular Exam Present: RRR, S1, S2 - Routine Abdominal Exam Present: soft, normoactive bowel sounds Comments: Incision is stapled and is healing well. No erythema or drainage. - Routine Extremities Exam Present: no edema, pulses intact, normal capillary refill - Routine Back/Spine/Pelvis Exam Back/Spine: Present: full ROM. Absent: vertebral tenderness - Routine Skin Exam Present: intact, dry, warm - Routine Neurological Exam Present: alert, oriented X3, CN II-XII intact - Routine Psychiatric Exam Present: normal affect, cooperative Results - Labs CBC & Chem 7: 05/19/17 04:32 05/19/17 04:32 Assessment and Plan DVT Prophylaxis: Lovenox GI Prophylaxis: other (omeprazole) Resuscitation Status: Full Code Assessment and Plan: ASSESSMENT 05/13/17: Laparoscopic with conversion to open cholecystectomy with intraoperative cholangiogram, open common bile duct exploration and placement of T-tube. (Dr. Cantu) Mild normocytic anemia Type 2 DM, noninsulin dependent. Hgb A1c was 6.6% on 02/03/17. HLD HTN Schizophrenia Right breast cancer, resolved. PUD, GERD Insomnia Osteoporosis PLAN Monitor blood sugars. Pt is refusing SSI. Resume glimepiride, monitoring for hypoglycemia. Consistent carb dieet. Hgb slightly low - follow periodically. Recent low urinary outputs but renal function has remained stable. Postop care, drains - per Dr. Cantu. Thank you for this consult. We will follow Alicia along with you during her IRU course. Hospital Course Summary Disclaimer: The visit summary below is not to be considered part of the above Progress Note. Hospital Course: 05/19/17 - HOSPITALIST CONSULT ASSESSMENT 05/13/17: Laparoscopic with conversion to open cholecystectomy with intraoperative cholangiogram, open common bile duct exploration and placement of T-tube. (Dr. Cantu) Mild normocytic anemia Type 2 DM, noninsulin dependent. Hgb A1c was 6.6% on 02/03/17. HLD HTN Schizophrenia Right breast cancer, resolved. PUD, GERD Insomnia Osteoporosis PLAN Monitor blood sugars. Pt is refusing SSI. Resume glimepiride, monitoring for hypoglycemia. Consistent carb dieet. Hgb slightly low - follow periodically. Recent low urinary outputs but renal function has remained stable. Postop care, drains - per Dr. Cantu. Sepsis Assessment - Evaluation Sepsis screening result: No Definite Risk <Neda Jarquin - Last Filed: 05/19/17 20:36> Consult Information - Data of Consult Requesting Physician: Francisco Vega MD Primary Care Provider: Sridhar Chaudhry MD Family Provider: Sridhar Chaudhry MD [facility] Patient Stated Medical History Transient Ischemic Attacks ( Yes: unsure TIA) Cataracts Yes: no surgery yet Other HEENT Yes: glasses Hypertension No Asthma No Sleep Apnea No Diabetes Mellitus Type 2 No Gastroesophageal Reflux Yes: controlled Disease Ulcer Yes: PEPTIC Other GI Yes: cholelithiasis Hx Incontinence No Other Musculoskeletal Yes: OSTEOPOROSIS Anesthesia Reactions No Paranoid Disorder Yes Schizophrenia Yes Post Menopausal Yes Exam Vital Signs: Temperature 96.5 F L 05/19/17 15:52 Pulse Rate 98 05/19/17 15:52 Respiratory Rate 20 05/19/17 15:52 Blood Pressure 133/69 05/19/17 15:52 Pulse Oximetry 92 05/19/17 15:52 Oxygen Delivery Method Room Air Oxygen Flow Rate 1 Height/Weight/BMI: Height 1.5 m Weight 66.8 kg Body Mass Index 29.7 Results - Labs CBC & Chem 7: 05/19/17 04:32 05/19/17 04:32 Assessment and Plan Assessment and Plan: I have independently evaluated and examined this patient. I reviewed the chart, the patient's history, and the [employer]/PA's documented findings as above. We discussed and formulated the assessment and plan as above with additions as below: Mrs. Ba was seen in the dining area. Her appetite is good and she denied difficulty ambulating indicating she is now walking without a walker or assistance. She hopes to go home soon. She denied dyspnea and reports she only has minor pain in the upper right quadrant. The patient is alert and very talkative with some mild push of speech as previously noted. Respirations are nonlabored with good airflow and clear breath sounds. Abdomen is soft with sarah palpable in the right upper quadrant, minimal tenderness if any was present (patient examined in dining area in seated position-deep palpation not performed) Continue supportive care, agree with resumption of glimepiride. Blood sugars consistently under 200 since transfer. Hospital Course Summary Disclaimer: The visit summary below is not to be considered part of the above Progress Note.
--- NOTE | 2017-05-19 09:50 | IRU History & Physical Report ---
[facility] IRU Date: 943 Chief complaint: PO cholecystotomy HPI: This 76-year-old woman has been admitted to the rehabilitation unit following complicated cholecystectomy requiring an open abdominal procedure with placement of T-tube and was in the coronary care unit postoperatively. She was seen for increased urine output by the hospitalist. She has been gradually improving, but is very weak and requires rehabilitation before going home only postoperative weakness. She has no motor problems preventing near full recovery. She complains of abdominal pain but denies other complaints. Her urine output has improved and she no longer has a Ho catheter. She has been eating and has had bowel movements. Review of Systems Comprehensive ROS: completed and no additional positive findings except those as stated - Constitutional Constitutional: Present: as per HPI (/;'[). Absent: chills, fever(s) - EENMT Mouth/Throat: Absent: sore throat, changes in swallowing - Cardiovascular Cardiovascular: Absent: chest pain - Respiratory Respiratory: Absent: cough - Gastrointestinal Gastrointestinal: Present: abdominal pain - Genitourinary Menstruation: post menopausal - Musculoskeletal Musculoskeletal: Absent: arthralgias - Integumentary/Breasts Integumentary: Absent: rash - Neurological Neurological: Absent: abnormal speech PFSH Patient Stated Medical History Transient Ischemic Attacks ( Yes: unsure TIA) Cataracts Yes: no surgery yet Other HEENT Yes: glasses Hypertension No Asthma No Sleep Apnea No Diabetes Mellitus Type 2 No Gastroesophageal Reflux Yes: controlled Disease Ulcer Yes: PEPTIC Other GI Yes: cholelithiasis Hx Incontinence No Other Musculoskeletal Yes: OSTEOPOROSIS Anesthesia Reactions No Paranoid Disorder Yes Schizophrenia Yes Post Menopausal Yes Surgical History: 05/13/17: Laparoscopic with conversion to open cholecystectomy with intraoperative cholangiogram, open common bile duct exploration and placement of T-tube. (Dr. Cantu). 05/05/17: Screening colonoscopy: Moderate sigmoid diverticulosis. (Dr. Cantu). EGD and colonoscopy: 2005. Right sided mastectomy 1986. D&C 1985 - Social History Smoking status: Former smoker Household members: family Current residence: Apartment/Private Home Medications Home Medications Medication Instructions Recorded Confirmed Type Esomeprazole Magnesium [Nexium] 40 mg PO DAILY 05/04/17 05/18/17 History Metformin [Glucophage] 500 mg PO BID 05/04/17 05/18/17 History Multivitamin [One Daily] 1 tab PO DAILY 05/04/17 05/18/17 History Simvastatin [Zocor] 40 mg PO HS 05/04/17 05/18/17 History Calcium Carbonate [Calcium] 1 tab PO HS 05/11/17 05/18/17 History [place]-3/Dha/Epa/Fish Oil [Fish Oil 1 each PO DAILY 05/11/17 05/18/17 History 1,000 mg Softgel] Allergies Allergy/AdvReac Type Severity Reaction Status Date / Time No Known Allergies Allergy Verified 05/13/17 12:07 Exam Vital Signs: Temperature 97.6 F 05/19/17 08:28 Pulse Rate 109 H 05/19/17 08:28 Respiratory Rate 16 05/19/17 08:28 Blood Pressure 150/72 H 05/19/17 08:28 Pulse Oximetry 96 05/19/17 08:28 Oxygen Delivery Method Room Air Oxygen Flow Rate 1 Height/Weight/BMI: Height 1.5 m Weight 66.8 kg Body Mass Index 29.7 - Constitutional Present: no acute distress - Routine HEENT Exam Head: Present: normocephalic - Routine Neck Exam Present: supple - Routine Chest/Breast/Axilla Exam Breast: Present: right mastectomy - Routine Respiratory Exam Present: CTA bilaterally - Routine Cardiovascular Exam Present: RRR - Routine Abdominal Exam Comments: incision with sarah-no redness - Routine Extremities Exam Present: no edema - Routine Neurological Exam Present: alert. Absent: motor deficit Sepsis Assessment - Evaluation Sepsis screening result: No Definite Risk IRU A/P DVT Prophylaxis: Lovenox GI Prophylaxis: other Resuscitation Status: Full Code - Course Hospital Course: Francisco Vega MD: - Interventions to Obtain Goals PT Treatment Plan: Balance/Proprioception, Functional Activities, Gait Training , Patient/Family Education OT Treatment Plan: ADL (Basic Care), Balance Training, Ther. Exercise for ADL Goals Progress/Modifications: regain strength to go home
--- NOTE | 2017-05-19 10:08 | IRU 24Hr Post Admit Eval ---
24 Hr Post Admission Physical - Relevant Changes Relevant Changes: No Reviewed: I have reviewed the patient's information and concur with the finding and results of the pre-admission screen. Certification: I certify the patient for rehabilitation. - Prior Functional Status Lives With: Alone Residence Type: Apartment/Private Home Assitive Devices: None Prior Functional Status: Indep. at home or school - Current Functional Status Failed Alternative Therapy: Arrived from Acute Care Patient Requirements: The patient requires oversight by rehabilitation physician to manage their rehabilitation treatment plan and multidisciplinary approach to care that can only be provided in an IRF and requires a multidisciplinary approach to care, provided by professional PTs, OTs, STs, dieticians, RTs, rehabilitation nurses and is not available in lesser levels of care. Limitiations Req: Mobility Impairment Physical Therapy Minutes: 90 Occupational Therapy Minutes: 90 Therapy: The patient is to receive therapy at least 5 days a week. - Complications/Comorbidities Impact on Functional Outcomes: PO pain, pe-existant medical problems Barriers to Discharge: Weakness, Endurance - Plan to Avoid Complications Plan to Avoid Complications: The patient cannot receive this care in a lesser intensive setting such as Long-Term or Outpatient Therapy due to the patient requiring the following .
--- NOTE | 2017-05-19 10:18 | IRU Plan of Care ---
IRU Overall Plan of Care - Date Date: 05/21/17 - Relevant Changes Relevant Changes: Yes Reviewed: I have reviewed the patient's information and concur with the finding and results of the pre-admission screen. Certification: I certify the patient for rehabilitation. - Medical Prognosis Medical Prognosis: Fair Vital Signs: Last Vital Signs Temp 97.6 F 05/19/17 08:28 Pulse 109 H 05/19/17 08:28 Resp 16 05/19/17 08:28 BP 150/72 H 05/19/17 08:28 Pulse Ox 96 05/19/17 08:28 Laboratory: WBC elevated - Anticipated Interventions Anticipated Interventions: The patient requires inpatient IRF care for PT, OT, and/or ST for residuals remaining from [] resulting in muscular weakness and strength deficits. - FIM Walk: 4 Minimal Assistance Staff Assist to Walk: 1 Person Stairs: 4 Minimal Assistance Stair Assistance Needed: 1 Person Eatin Minimal Assistance Groomin Minimal Assistance Bathing Ability: 4 Minimal Assistance Toileting Adaptive Equipment: Grab Bars - Current Functional Status Patient Requires: The patient requires oversight by rehabilitation physician to manage their rehabilitation treatment plan and multidisciplinary approach to care that can only be provided in an IRF and requires a multidisciplinary approach to care, provided by professional PTs, OTs, STs, dieticians, RTs, rehabilitation nurses and is not available in lesser levels of care. Physical Therapy Minutes: 90 Occupational Therapy Minutes: 90 Therapy: The patient is to receive therapy at least 5 days a week. - Anticipated LOS/Outcomes Anticipated Functional Outcome: Able to go home Anticipated Length of Stay: 7 Anticipated DC Destination: Home, Self Assisted Safety Plan: The patient will be provided with the development of a Home Safety Plan for return to a home or home-like environment and and to ensure safety post discharge. - Plan to Avoid Complications Plan to Avoid Complications: The patient cannot receive this care in a lesser intensive setting such as Retirement or Outpatient Therapy due to the patient requiring the following .
--- NOTE | 2017-05-19 13:05 | General Surgery Progress Note ---
Subjective Patient reports: no new complaints, tolerating a regular diet, voiding w/o difficulty, bowel movement Narrative: Working with rehab to build strength and endurance before discharge. Denies nausea, chest pain. - Vital Signs Last Vital Signs Temp 97.6 F 05/19/17 08:28 Pulse 109 H 05/19/17 08:28 Resp 16 05/19/17 08:28 BP 150/72 H 05/19/17 08:28 Pulse Ox 96 05/19/17 08:28 - Laboratory Result Diagrams: 05/19/17 04:32 05/19/17 04:32 - Normal Exam General: oriented, no acute distress Cardiovascular: regular rhythm, regular rate Respiratory: no labored breathing Abdominal: soft, appropriately tender (right subcostal incision), incision(s) ( CDI sarah in tact, no erythema or ecchymosis), other (T-tube with stop cock not leaking around the stop cock, but dressings were changed during the night and again a short time ago due to leaking of yellow fluid from around the tube as it exits the skin. KWABENA with serosangenous fluid.) Assessment and Plan Plan: POD #6 open GB with CDE and placement of T-tube. T-tube to remain clamped for several weeks. KWABENA with serosanguineous fluid, will monitor 1 more day to be sure there is no bile in the KWABENA, since we just got the T-tube consistently clamped yesterday. Plan on staple removal 2 weeks post op. Hospital Course Summary Disclaimer: The visit summary below is not to be considered part of the above Progress Note. Sepsis Assessment - Evaluation Sepsis screening result: No Definite Risk
[2017-05-19] MEDS: GLIMEPIRIDE 2 MG TABLET PO SCH (17:31)
[2017-05-19] MEDS: CALCIUM CARBONATE 500 MG TABLET PO SCH (20:24)
[2017-05-19] MEDS: SIMVASTATIN 40 MG TABLET PO SCH (20:24)
[2017-05-19] MEDS: POLYETHYL GLYCOL 3350 17gm PACKET PO PRN (20:24)
[2017-05-19] MEDS: DiphenhydrAMINE 25 MG CAPSULE PO PRN (21:09)
[2017-05-20] MEDS: OMEPRAZOLE 20 MG CAPSULE PO SCH ×2 (04:22→07:25)
[2017-05-20] MEDS: GLIMEPIRIDE 2 MG TABLET PO SCH (08:30)
[2017-05-20] MEDS: ENOXAPARIN 40 MG/0.4 ML INJECTION SQ SCH (08:30)
[2017-05-20] MEDS: MULTI-VITAMIN PLAIN TABLET PO SCH (08:30)
[2017-05-20] MEDS: METFORMIN 500 MG TABLET PO SCH ×2 (08:30→17:44)
--- NOTE | 2017-05-20 08:40 | IRU Progress Note ---
- Subjective/Serverity of Illness Doing very well. Does complain of abdominal wall pain when she gets up and down. Ambulating good distances and seems to be very cooperative. Exam Vital Signs: Temperature 97.1 F 05/20/17 08:00 Pulse Rate 87 05/20/17 08:00 Respiratory Rate 20 05/20/17 08:00 Blood Pressure 148/70 H 05/20/17 08:00 Pulse Oximetry 94 05/20/17 08:00 Oxygen Delivery Method Room Air Oxygen Flow Rate 1 Height/Weight/BMI: Height 1.5 m Weight 66.8 kg Body Mass Index 29.7 Sepsis Assessment - Evaluation Sepsis screening result: No Definite Risk IRU A/P DVT Prophylaxis: Lovenox Resuscitation Status: Full Code - Course Hospital Course: Francisco Vega MD: - Interventions to Obtain Goals PT Treatment Plan: Balance/Proprioception, Functional Activities, Gait Training , Patient/Family Education, Therapeutic Exercise OT Treatment Plan: ADL (Basic Care), Balance Training, IADL, Pt./Family Education, Ther. Exercise for ADL
[2017-05-20] MEDS: BISMUTH SUBSALICYLATE 262mg/15ml ORAL LIQUID PO PRN ×2 (10:17→22:04)
[2017-05-20] MEDS: HYDROCODONE/APAP 5mg/325mg TABLET PO PRN ×5 (10:20→23:59)
[2017-05-20] MEDS: DiphenhydrAMINE 25 MG CAPSULE PO PRN ×2 (10:56→20:28)
[2017-05-20] MEDS: POLYETHYL GLYCOL 3350 17gm PACKET PO PRN (20:29)
[2017-05-20] MEDS: CALCIUM CARBONATE Chewable 500mg TABLET PO PRN ×2 (20:29→22:09)
[2017-05-20] MEDS: SIMVASTATIN 40 MG TABLET PO SCH (20:29)
[2017-05-20] MEDS: CALCIUM CARBONATE 500 MG TABLET PO SCH (20:32)
[2017-05-20] MEDS ORDERED: HYDROCODONE/APAP 7.5 MG/325 MG TABLET PO PRN (23:27)
[2017-05-21] MEDS: HYDROCODONE/APAP 5mg/325mg TABLET PO PRN (01:25)
[2017-05-21] MEDS: ONDANSETRON ODT 4 MG TABLET PO PRN (03:04)
[2017-05-21] MEDS ORDERED: NS with KCL 20 mEq 20 MEQ/1,000 ML IV.SOLN IV SCH (06:00)
[2017-05-21] MEDS: HYDROMORPHONE 2 MG/ML INJECTION IVP PRN ×3 (07:05→21:38)
[2017-05-21] MEDS ORDERED: NS with KCL 20 mEq 1,000 ML IV SCH (07:30)
[2017-05-21] MEDS ORDERED: NS 100 ML ONE (08:09)
[2017-05-21] MEDS ORDERED: IOHEXOL 300mg/ml 100ml INJECTION ONE (08:09)
--- NOTE | 2017-05-21 09:11 | IRU Progress Note ---
- Subjective/Serverity of Illness Patient experienced nausea and vomiting overnight. Had straight cath for 825 cc of urine. [id number] consult with gen surgeon and hospitalist Exam Vital Signs: Temperature 97.7 F 05/21/17 01:15 Pulse Rate 76 05/21/17 01:15 Respiratory Rate 16 05/21/17 01:15 Blood Pressure 157/71 H 05/21/17 01:15 Pulse Oximetry 97 05/21/17 01:15 Oxygen Delivery Method Room Air Oxygen Flow Rate 1 Height/Weight/BMI: Height 1.5 m Weight 62.7 kg Body Mass Index 29.7 Sepsis Assessment - Evaluation Sepsis screening result: No Definite Risk Possible source: genitourinary SIRS Criteria: WBC > or equal to 12,000 IRU A/P DVT Prophylaxis: Lovenox Resuscitation Status: Full Code - Course Hospital Course: Francisco Vega MD: - Interventions to Obtain Goals PT Treatment Plan: Balance/Proprioception, Functional Activities, Gait Training , Patient/Family Education, Therapeutic Exercise OT Treatment Plan: ADL (Basic Care), Balance Training, IADL, Pt./Family Education, Ther. Exercise for ADL
--- NOTE | 2017-05-21 09:44 | Progress Note ---
<Lynette Borden - Last Filed: 05/21/17 09:41> Subjective: Alicia is seen today in urgent follow up due to overnight events. Boiler Assistant Operator reported that patient developed worsening abdominal pain, persistent vomiting, and labs and CT were obtained. Patient was found to have significant urinary retention and was straight cathed for 825ml at night. Recheck this morning- 350ml. RN and pt. reports that she is not voiding since straight cath. Pt. was made NPO due to recurrent vomiting. Patient reports that she is in pain- indicates suprapubic area/pelvic area. She reports she has vomited once this morning. She is having pain- vomiting PO pain meds. No cough or SOA. Does not indicate RUQ pain despite recent surgery. Chart, documentation, imaging reviewed during my assessment of this patient and to obtain collateral information. D/W RN as well. Objective Vital signs: Temperature 98.4 F 05/21/17 08:00 Pulse Rate 84 05/21/17 08:00 Respiratory Rate 18 05/21/17 08:00 Blood Pressure 164/77 H 05/21/17 08:00 Pulse Oximetry 95 05/21/17 08:00 Oxygen Delivery Method Room Air Oxygen Flow Rate 1 Rhythm: Sinus Tachycardia Height/Weight/BMI: Height 1.5 m Weight 62.7 kg Body Mass Index 29.7 Comments: She is tachycardic upon exam. Ordered tele now. - Constitutional Present: moderate distress, cooperative Comments: She is alert. Appears ill. Lips are dry/pale. She is cooperative, appropriate. - Routine HEENT Exam Head: Present: normocephalic, atraumatic Eye: Present: EOMI, PERRL ENT: Present: mucous membranes dry - Routine Respiratory Exam Present: decreased breath sounds, CTA bilaterally. Absent: accessory muscle use , dyspnea, rales, rhonchi, wheezes, crackles Comments: No SOA, crackles, wheezes or cough on anterior exam. She does not appear to have respiratory distress. - Routine Cardiovascular Exam Present: RRR, S1, S2, no murmur, tachycardia - Routine Abdominal Exam Present: soft, tenderness (s/p tenderness reported. ), distended (Bladder is palpable at the level of the umbilicus. ), guarding, drain. Absent: normoactive bowel sounds (Hypoactive BS x 4 quadrants. ) - Routine Exam Comments: suprapubic tenderness, bladder palpable, distended as above. - Routine Extremities Exam Present: no edema, non tender - Routine Musculoskeletal Exam Musculoskeletal: Present: no clubbing or cyanosis, no erythema, moving extremities well - Routine Skin Exam Present: intact, dry, warm - Routine Neurological Exam Present: alert, oriented X3, CN II-XII intact - Routine Psychiatric Exam Present: normal affect, cooperative, good insight, good judgment, anxious Results - Labs CBC & Chem 7: 05/21/17 04:41 05/21/17 04:41 Labs: Bands 14%. - Imaging and Cardiology CT scan - pelvis Status: image reviewed by me, pending (Bladder is distended. CBD dilitation. T- Tube in place. No obvious ileus. ) Assessment and Plan (1) Choledocholithiasis with acute cholecystitis with obstruction Current visit: No Status: Acute (2) Postoperative urinary retention Current visit: No Status: Acute (3) Sepsis Current visit: Yes Status: Acute DVT Prophylaxis: Lovenox GI Prophylaxis: Protonix Resuscitation Status: Full Code Assessment and Plan: 05/21/17 Assessment: Acute cholecystitis s/p open cholecystectomy with t-tube placement. Recurrent urinary retention Severe Sepsis Type 2 DM, noninsulin dependent. Hgb A1c was 6.6% on 02/03/17. HLD HTN Schizophrenia PUD, GERD Plan: Patient appears acutely septic with tachycardia, leukocytosis and bandemia, low body temp. Will obtain BC x 2. Serum lactate now. UA with cx and CXR now. Suspected source is urine, but given recent abdominal surgery, will need broader coverage. Start Zosyn and Vanco with pharmacy consult for vanco management. Fluid bolus x 2 hours, then continue IVF. NPO status with clear liquid sips and chips. Hold PO meds, change to IV route as appropriate. Start tele, Q 2 hours VS for monitoring. BG has been fairly stable, continue to monitor for now. Hold PO meds for DM. We can add sliding scale if needed. Repeat labs at 3pm for stability, improvement. BP is high, but suspect due to acute pain and illness. Hold off on treatment given concern for developing sepsis. Continue to monitor closely. D/W RN, again chart is reviewed for collateral information. Surgery notified of pt status by RN, therefore I did not call to discuss with him. Acuity is high given concern for sepsis. High risk meds include IV narcotics and decision to initiate treatment for sepsis. - Time spent with patient greater than 35 minutes Coordination of Care: >50% of visit spent providing counseling/coordination of care Sepsis Assessment - Evaluation Sepsis screening result: No Definite Risk Possible source: GI tract/intra-abdominal, genitourinary SIRS Criteria: temperature < or equal to 96.8, pulse > or equal to 90 beats/ minute, WBC > or equal to 12,000, Bands > or equal to 10% Hospital Course Summary Disclaimer: The visit summary below is not to be considered part of the above Progress Note. Hospital Course: 05/19/17 - HOSPITALIST CONSULT ASSESSMENT 05/13/17: Laparoscopic with conversion to open cholecystectomy with intraoperative cholangiogram, open common bile duct exploration and placement of T-tube. (Dr. Cantu) Mild normocytic anemia Type 2 DM, noninsulin dependent. Hgb A1c was 6.6% on 02/03/17. HLD HTN Schizophrenia Right breast cancer, resolved. PUD, GERD Insomnia Osteoporosis PLAN Monitor blood sugars. Pt is refusing SSI. Resume glimepiride, monitoring for hypoglycemia. Consistent carb dieet. Hgb slightly low - follow periodically. Recent low urinary outputs but renal function has remained stable. Postop care, drains - per Dr. Cantu. 05/21/17 09:57 Plan: Patient appears acutely septic with tachycardia, leukocytosis and bandemia, low body temp. Will obtain BC x 2. Serum lactate now. UA with cx and CXR now. Suspected source is urine, but given recent abdominal surgery, will need broader coverage. Start Zosyn and Vanco with pharmacy consult for vanco management. Fluid bolus x 2 hours, then continue IVF. NPO status with clear liquid sips and chips. Hold PO meds, change to IV route as appropriate. Start tele, Q 2 hours VS for monitoring. BG has been fairly stable, continue to monitor for now. Hold PO meds for DM. We can add sliding scale if needed. Repeat labs at 3pm for stability, improvement. BP is high, but suspect due to acute pain and illness. Hold off on treatment given concern for developing sepsis. Continue to monitor closely. D/W RN, again chart is reviewed for collateral information. Acuity is high given concern for sepsis. High risk meds include IV narcotics and decision to initiate treatment for sepsis. <Neda Jarquin - Last Filed: 05/21/17 20:47> Objective Vital signs: Temperature 98.9 F 05/21/17 18:32 Pulse Rate 103 H 05/21/17 18:32 Respiratory Rate 24 05/21/17 18:32 Blood Pressure 150/72 H 05/21/17 18:32 Pulse Oximetry 93 05/21/17 18:32 Oxygen Delivery Method Room Air Oxygen Flow Rate 1 Height/Weight/BMI: Height 1.5 m Weight 62.7 kg Body Mass Index 29.7 Results - Labs CBC & Chem 7: 05/21/17 15:12 05/21/17 15:12 Microbiology Results: Microbiology 05/21/17 10:18 Urine, Voided (Cc/notcc) Urine Culture - Preliminary Culture Initiated - Results Pending 05/21/17 09:57 Peripheral/Iv Start Blood Culture - Preliminary Culture Initiated - Results Pending 05/21/17 09:51 Peripheral/Iv Start Blood Culture - Preliminary Culture Initiated - Results Pending Assessment and Plan (1) Choledocholithiasis with acute cholecystitis with obstruction Current visit: No Status: Acute (2) Postoperative urinary retention Current visit: No Status: Acute (3) Sepsis Current visit: Yes Status: Acute Assessment and Plan: I have independently evaluated and examined this patient. I reviewed the chart, the patient's history, and the LAYOUT TECHNICIAN/PA's documented findings as above. We discussed and formulated the assessment and plan as above with additions as below: Patient is experienced increased abdominal pain overnight with development of urinary retention again requiring straight catheterization last night and placement of Ho catheter this morning-both with approximately 800 mL of urine returned. Patient reports pain is suprapubic clearly located and that the achy sensation she's had in the right upper quadrant since surgery is unchanged. Nausea and vomiting present. She's been afebrile. The patient is alert but appears uncomfortable, Respirations are shallow and breath sounds clear although air flow is diminished. Abdomen is soft but diffusely tender and much more tender in the upper abdomen that has been previously. The patient guards diffusely and has rebound tenderness in multiple locations. Incisions are unremarkable and the KWABENA drain has serous fluid present White count is minimally lower this evening than it was earlier today with persistent left shift; liver enzymes unremarkable and lactic acid has not bumped. Urinalysis does not suggest infection with negative nitrate and 1-[address] of the abdomen and pelvis reviewed by myself and discussed with Dr. Medeiros-, and bile duct is 1.5 cm and raises question of a common bile duct obstruction although no obstructing lesion is actually witnessed. There is mild localized thickening in the distal small bowel raising question of mild enteritis but no evidence of abscess or other acute pathology. Course/symptoms discussed with Dr. Medeiros missing the patient in consultation in cross coverage for Dr. Cantu. Patient nothing by mouth at present time. Hospital Course Summary Disclaimer: The visit summary below is not to be considered part of the above Progress Note.
[2017-05-21] MEDS: GLIMEPIRIDE 2 MG TABLET PO SCH (10:22)
[2017-05-21] MEDS: OMEPRAZOLE 20 MG CAPSULE PO SCH (10:22)
[2017-05-21] MEDS: METFORMIN 500 MG TABLET PO SCH (10:23)
[2017-05-21] MEDS: MULTI-VITAMIN PLAIN TABLET PO SCH (10:31)
[2017-05-21] MEDS ORDERED: NS FLUSH BAG 500ml IV PRN (10:48)
[2017-05-21] MEDS: PIPERACILLIN/TAZOBACTAM 3.375 GM in NS 100 ML IV SCH ×3 (11:33→21:41)
[2017-05-21] MEDS: ENOXAPARIN 40 MG/0.4 ML INJECTION SQ SCH (11:34)
[2017-05-21] MEDS: INSULIN ASPART 100unit/ml INJECTION SQ PRN ×2 (11:36→20:15)
[2017-05-21] MEDS: PANTOPRAZOLE 40 MG INJECTION IVP SCH (12:16)
--- NOTE | 2017-05-21 16:16 | CT Scan Report ---
Indication: abdomen pain and leukocytosis, s/p open choley PROCEDURE: CT abdomen pelvis w con: Encounter: Initial Comparison: Cholangiogram dated May 13, 2017 Technique: Axial CT images were performed through the abdomen and pelvis after the administration of intravenous contrast. Coronal and sagittal two-dimensional reformats. Automated Exposure Control and Iterative Reconstruction dose reducing techniques were utilized. Contrast: Omnipaque 300 89 mL Findings: Mild fibrosis or scarring in the lung bases. Heart is enlarged. Small hiatal hernia. Pneumobilia present within the central aspect of the liver. Liver is otherwise normal. Surgical drains in the area of the gallbladder fossa. Dilated extrahepatic common duct without radiographically apparent stone. Bile duct was markedly dilated on recent cholangiogram. The spleen, pancreas and adrenal glands are within normal limits. Kidneys are normal. Moderate amount of free fluid in the pelvis. Bladder is normal. Uterus is grossly normal. Sigmoid diverticulosis without evidence of acute diverticulitis. No evidence of a bowel obstruction. The appendix is normal. Bone windows show degenerative changes in the spine. Impression: Postoperative changes from open cholecystectomy with a surgical drain in place in the gallbladder fossa. There is moderate free pelvic fluid but no definite evidence of abscess formation or other findings to suggest a bile leak. Nuclear medicine hepatobiliary scan could be performed if there is clinical concern for bile leak. There is a preliminary report by [employer]. .
[2017-05-21] MEDS ORDERED: SALINE FLUSH 10ml SYRINGE IV PRN (21:48)
[2017-05-22] MEDS: PIPERACILLIN/TAZOBACTAM 3.375 GM in NS 100 ML IV SCH ×4 (05:23→21:33)
--- NOTE | 2017-05-22 09:12 | XRay Report ---
Indication: Sepsis PROCEDURE: XR chest 1V: Encounter: Initial Comparison: May 16, 2017 Findings: The lungs are stable in appearance without new focal airspace consolidation. There is no pleural effusion or pneumothorax. The heart size, pulmonary vascularity and mediastinal contours are unchanged. Surgical drains in the right upper quadrant. IMPRESSION: Stable appearance of the chest without acute cardiopulmonary disease. .
[2017-05-22] MEDS: PANTOPRAZOLE 40 MG INJECTION IVP SCH (09:46)
[2017-05-22] MEDS: ENOXAPARIN 40 MG/0.4 ML INJECTION SQ SCH (09:46)
[2017-05-22] MEDS ORDERED: FLEET PHOSPHO - SODA ENEMA 133ml PR ONE (10:06)
[2017-05-22] MEDS: ONDANSETRON 4 MG/2 ML INJECTION IVP PRN ×2 (10:46→17:31)
[2017-05-22] MEDS: LACTULOSE 20 GM/30 ML ORAL LIQUID PO SCH ×2 (10:47→20:44)
--- NOTE | 2017-05-22 11:03 | Progress Note ---
<Sonal Bob - Last Filed: 05/22/17 10:59> Subjective: Alicia is seen today lying in bed. She continues to be very uncomfortable in regards to abdominal fullness and pain. She states she feels like she needs to eat, she thinks this will make her feel better. She's now been NPO for over 24 hours. Nurses report she has had nausea and dry heaving. She states she has not had a bowel movement for 2 days. Feels like she is not having any flatus. She continues on Zosyn. Feels like she gets nauseated when this is infusing. She is afebrile this morning, had a temp of 99.9 overnight. Objective Vital signs: Temperature 98.2 F 05/22/17 09:54 Pulse Rate 101 H 05/22/17 09:54 Respiratory Rate 20 05/22/17 09:54 Blood Pressure 139/66 05/22/17 09:54 Pulse Oximetry 92 05/22/17 09:54 Height/Weight/BMI: Height 1.5 m Weight 62.7 kg Body Mass Index 29.7 - Constitutional Present: mild distress, well nourished, well developed - Routine HEENT Exam Head: Present: normocephalic, atraumatic ENT: Present: dentition normal Comments: Lips are dry - Routine Respiratory Exam Present: crackles (bilateral bases). Absent: accessory muscle use, respiratory distress, wheezes - Routine Cardiovascular Exam Present: RRR, S1, S2. Absent: murmur - Routine Abdominal Exam Present: tenderness (diffuse moderate tenderness. Tenderness is most prominent across the pelvic region with significant tenderness to palpation in this area.) , distended (mildly), guarding, wound (surgical wounds without sign of infection. Haley intact.), drain (KWABENA drain present.). Absent: normoactive bowel sounds (hypoactive bowel sounds), mass - Routine Extremities Exam Present: no edema, normal capillary refill - Routine Skin Exam Present: dry, warm - Routine Neurological Exam Present: alert, oriented X3 - Routine Lymphatic Exam Lymphatic: Absent: adenopathy - Routine Psychiatric Exam Present: normal affect, normal thought process Results - Labs CBC & Chem 7: 05/22/17 04:22 05/22/17 04:22 Microbiology Results: Microbiology 05/21/17 10:18 Urine, Voided (Cc/notcc) Urine Culture - Preliminary No Growth After 1 Day 05/21/17 09:57 Peripheral/Iv Start Blood Culture - Preliminary No Growth After 1 Day 05/21/17 09:51 Peripheral/Iv Start Blood Culture - Preliminary No Growth After 1 Day - Imaging and Cardiology Chest x-ray Additional comments: Chest x-ray-05/21/17 Findings: The lungs are stable in appearance without new focal airspace consolidation. There is no pleural effusion or pneumothorax. The heart size, pulmonary vascularity and mediastinal contours are unchanged. Surgical drains in the right upper quadrant. IMPRESSION: Stable appearance of the chest without acute cardiopulmonary disease. Assessment and Plan (1) Choledocholithiasis with acute cholecystitis with obstruction Current visit: Yes Status: Acute (2) Postoperative urinary retention Current visit: Yes Status: Acute (3) Sepsis Current visit: Yes Status: Acute Assessment and Plan: Acute cholecystitis s/p open cholecystectomy with t-tube placement. Recurrent urinary retention Severe Sepsis Type 2 DM, noninsulin dependent. Hgb A1c was 6.6% on 02/03/17. HLD HTN Schizophrenia PUD, GERD Plan: KUB was performed showing large amount of stool. Lactulose and fleet's enema ordered. Cotinue NPO status with clear liquid sips and chips. Start IVF's - NS at 100ml/ hour Meds currently being held for DM as BS's have been reasonable. Sliding scale insulin ordered. Continue to monitor closely. Case and treatment plan discussed with Dr. Jarquin, attending. Surgeon should be following up with her today as well. Sepsis Assessment - Evaluation Sepsis screening result: Sepsis Risk Hospital Course Summary Disclaimer: The visit summary below is not to be considered part of the above Progress Note. Hospital Course: 05/19/17 - HOSPITALIST CONSULT ASSESSMENT 05/13/17: Laparoscopic with conversion to open cholecystectomy with intraoperative cholangiogram, open common bile duct exploration and placement of T-tube. (Dr. Cantu) Mild normocytic anemia Type 2 DM, noninsulin dependent. Hgb A1c was 6.6% on 02/03/17. HLD HTN Schizophrenia Right breast cancer, resolved. PUD, GERD Insomnia Osteoporosis PLAN Monitor blood sugars. Pt is refusing SSI. Resume glimepiride, monitoring for hypoglycemia. Consistent carb dieet. Hgb slightly low - follow periodically. Recent low urinary outputs but renal function has remained stable. Postop care, drains - per Dr. Cantu. 05/21/17 09:57 Patient appears acutely septic with tachycardia, leukocytosis and bandemia, low body temp. Will obtain BC x 2. Serum lactate now. UA with cx and CXR now. Suspected source is urine, but given recent abdominal surgery, will need broader coverage. Start Zosyn and Vanco with pharmacy consult for vanco management. Fluid bolus x 2 hours, then continue IVF. NPO status with clear liquid sips and chips. Hold PO meds, change to IV route as appropriate. Start tele, Q 2 hours VS for monitoring. BG has been fairly stable, continue to monitor for now. Hold PO meds for DM. We can add sliding scale if needed. Repeat labs at 3pm for stability, improvement. BP is high, but suspect due to acute pain and illness. Hold off on treatment given concern for developing sepsis. Continue to monitor closely. D/W RN, again chart is reviewed for collateral information. Acuity is high given concern for sepsis. High risk meds include IV narcotics and decision to initiate treatment for sepsis. 05/22/17 KUB was performed showing large amount of stool. Lactulose and fleet's enema ordered. Cotinue NPO status with clear liquid sips and chips. Start IVF's - NS at 100ml/ hour Meds currently being held for DM as BS's have been reasonable. Sliding scale insulin ordered. <Neda Jarquin - Last Filed: 05/22/17 17:21> Objective Vital signs: Temperature 98.3 F 05/22/17 16:00 Pulse Rate 105 H 05/22/17 16:00 Respiratory Rate 18 05/22/17 16:00 Blood Pressure 149/71 H 05/22/17 16:00 Pulse Oximetry 92 05/22/17 16:00 Oxygen Delivery Method Room Air Oxygen Flow Rate 1 Height/Weight/BMI: Height 1.5 m Weight 62.7 kg Body Mass Index 29.7 Results - Labs CBC & Chem 7: 05/22/17 04:22 05/22/17 04:22 Microbiology Results: Microbiology 05/21/17 10:18 Urine, Voided (Cc/notcc) Urine Culture - Final Mixed Bacterial Sara 05/21/17 09:57 Peripheral/Iv Start Blood Culture - Preliminary No Growth After 1 Day 05/21/17 09:51 Peripheral/Iv Start Blood Culture - Preliminary No Growth After 1 Day Assessment and Plan (1) Choledocholithiasis with acute cholecystitis with obstruction Current visit: Yes Status: Acute (2) Postoperative urinary retention Current visit: Yes Status: Acute (3) Sepsis Current visit: Yes Status: Acute Assessment and Plan: I have independently evaluated and examined this patient. I reviewed the chart, the patient's history, and the MANAGER CUSTOMS/PA's documented findings as above. We discussed and formulated the assessment and plan as above with additions as below: Mrs. Ba reports ongoing abdominal pain which is primarily in the lower abdomen/RLQ. She's had no further vomiting. She reports feeling hot but has not had temperatures. Bilious drainage was obtained when the T-tube was placed to drainage. NAD, talkative Abdomen distended, soft, diffusely tender with rebound tenderness diffusely present. Discussed with Dr. Medeiros, plan dye injection of T-tube tomorrow to assure proper placement although bilious drainage reassuring. Continue Zosyn due to leukocytosis. Aggressive bowel regimen initiated for obstipation/constipation. KUB reviewed by myself with findings as previously noted. In addition to above problems please add: #1 generalized abdominal pain #2 constipation #3 leukocytosis Hospital Course Summary Disclaimer: The visit summary below is not to be considered part of the above Progress Note. Addendum entered and electronically signed by Sonal Bob PA 05/22/17 11:31 : Patient has Ho catheter. Urine output has been low. Catheter was flushed overnight without return, but bladder scan showed 45 cc. Will continue to monitor closely, especially with starting IV fluids.
[2017-05-22] MEDS: NS 1,000 ML IV SCH ×2 (11:45→23:24)
[2017-05-22] MEDS: POLYETHYL GLYCOL 3350 17gm PACKET PO SCH ×2 (11:46→20:45)
[2017-05-22] MEDS: SENNA + DOCUSATE TABLET PO SCH ×2 (11:47→20:44)
[2017-05-22] MEDS: INSULIN ASPART 100unit/ml INJECTION SQ PRN (11:51)
[2017-05-22] MEDS ORDERED: BISACODYL 10 MG SUPPOSITORY RECTALLY ONE (14:32)
--- NOTE | 2017-05-22 14:55 | XRay Report ---
Indication: abdominal pain and distention PROCEDURE: XR KUB: Encounter: Initial Comparison: None Findings: Surgical drains in the right abdomen. Post operative changes with surgical skin sarah. Nonobstructive nonspecific bowel gas pattern. Mild gaseous distention of the stomach. Overlying monitoring leads. No obvious free air seen on this supine view. Impression: Nonobstructive nonspecific bowel gas pattern. .
[2017-05-22] MEDS: HYDROMORPHONE 2 MG/ML INJECTION IVP PRN (16:08)
[2017-05-22] MEDS: BISMUTH SUBSALICYLATE 262mg/15ml ORAL LIQUID PO PRN (17:21)
[2017-05-22] MEDS: SIMVASTATIN 40 MG TABLET PO SCH (20:45)
[2017-05-23] MEDS: PIPERACILLIN/TAZOBACTAM 3.375 GM in NS 100 ML IV SCH ×4 (05:08→23:45)
[2017-05-23] MEDS: OMEPRAZOLE 20 MG CAPSULE PO SCH (06:08)
[2017-05-23] MEDS ORDERED: BISACODYL 10 MG SUPPOSITORY RECTALLY ONE (08:15)
--- NOTE | 2017-05-23 08:16 | Progress Note ---
DATE OF VISIT 05/21/2017 REASON FOR VISIT Covering surgical care for Dr. Cantu. BERE Vargas is a 76-year-old female who was admitted to IRU and had had a laparoscopic cholecystectomy converted to open cholecystectomy with open common duct exploration and removal of choledocholithiasis along with T-tube placement on 05/13/[address] Cantu. Today the patient had had increased abdominal pain. She had reported increasing pain overnight in the suprapubic region. She was noted to have urinary retention and was straight cathed. She continued to have urinary retention and so a Ho catheter was placed, but her abdominal pain had not resolved. She was seen by Dr. Jarquin earlier who had noted a change in physical exam with more diffuse abdominal tenderness. She had had a white count of 21,000 that had increased from 8.9 yesterday. She did have 81% neutrophils and 14% bands. Given her change in abdominal exam, she was started on antibiotics with vancomycin and Zosyn. I was notified of the patient's change in condition. A CT scan had been performed. The patient reports abdominal pain and says it is more in the suprapubic region. She does say that she has not had a bowel movement in a while. She reports some nausea and vomiting. Her pain had increased after eating dinner and she said it was up to 10/10 in severity. She does feel the pain is a little bit better this morning. OBJECTIVE VITAL SIGNS: Temperature 98.4, pulse 84, blood pressure 164/77, respiratory rate 18, oxygen saturation 95% on room air. GENERAL: The patient is awake, alert, in no acute distress. HEART: Regular rate and rhythm. LUNGS: Clear to auscultation bilaterally. ABDOMEN: Soft, diffusely tender. Her incisions are clean, dry and intact with sarah in position. Her drain has serous output. T-tube was open to a drainage bag and showed green bilious output. She does have some diffuse tenderness throughout the abdomen, but reports other places where she is nontender short distances away. EXTREMITIES: No clubbing, cyanosis or edema. NEURO: Cranial nerves II-XII are grossly intact. PSYCHIATRIC: Normal mood and affect. LABORATORY DATA See history of present illness. IMAGING CT scan of the abdomen and pelvis was reviewed by me personally. I was concerned that the T-tube may have been withdrawn from the common bile duct. Drain remains in good position. There was some free fluid throughout the abdomen. IMPRESSION 1. Status post laparoscopic cholecystectomy converted to open cholecystectomy with open common duct exploration and removal of choledocholithiasis along with T-tube placement on 05/13/2017. 2. Acute change in postoperative abdominal pain of uncertain etiology. 3. Constipation. 4. Leukocytosis. PLAN 1. I did discuss the case with Dr. Cantu who had recommended opening the patient's T-tube and checking for eusebio bile. This did show eusebio bile that was different in color from the drain but it was immediately associated to the area of the T-tube. This is reassuring that the T-tube remains functioning. 2. T-tube cholangiogram could be performed on Tuesday for confirmation, but radiology is not available over the weekend. 3. Follow progress of the abdomen tomorrow. TREASURED
--- NOTE | 2017-05-23 08:36 | Progress Note ---
DATE OF VISIT 05/22/2017 REASON FOR VISIT Covering for Dr. Cantu. BERE Vargas still reports some abdominal pain. She had a small bowel movement after a Fleet's enema earlier today. She has had multiple other laxatives given without results other than the Fleet's enema. OBJECTIVE VITAL SIGNS: Temperature 98.6, pulse 97, blood pressure 146/67, respiratory rate 20, oxygen saturation 92% on room air. GENERAL: The patient is awake, alert, in no acute distress. ABDOMEN: Soft, diffusely tender with no guarding noted. Her incisions are clean, dry and intact. There is yellow drainage around the T tube and in the KWABENA drain. These do not appear green or have any definitive bile drainage. LABORATORY DATA White blood cell count remains elevated at 19.9 with 77% neutrophils and 16% bands. IMPRESSION 1. Status post laparoscopic cholecystectomy converted to open cholecystectomy with common duct exploration, removal of choledocholithiasis, and T-tube placement. 2. Diffuse abdominal pain of uncertain etiology. This could be from Internal bile leak versus significant constipation. 3. Constipation. PLAN 1. I will add a Dulcolax suppository to try to treat the constipation some more from the rectal route. 2. Continue antibiotics in the meantime given the elevated white count. 3. I will let Dr. Cantu decide tomorrow if T-tube cholangiogram is indicated or if the patient has improved clinically. 4. I think sips and chips or a clear liquid diet would be reasonable though the patient has reported some nausea and vomiting. [facility]
[2017-05-23] MEDS: POLYETHYL GLYCOL 3350 17gm PACKET PO SCH ×2 (09:44→21:29)
[2017-05-23] MEDS: LACTULOSE 20 GM/30 ML ORAL LIQUID PO SCH ×3 (09:55→21:29)
[2017-05-23] MEDS: SENNA + DOCUSATE TABLET PO SCH ×2 (09:55→21:30)
[2017-05-23] MEDS: ENOXAPARIN 40 MG/0.4 ML INJECTION SQ SCH (09:55)
--- NOTE | 2017-05-23 11:49 | IRU Progress Note ---
- Subjective/Serverity of Illness Ms. Ba was evaluated in her room today. She complains of abdominal pain as well as nausea and vomiting. She says that she has been able to eat since the surgery but I do not think that is accurate. She does have a reported history of schizophrenia as well. Review of CT scan done this morning indicates dilatation of common bile duct. Does have ET tube in place. Surgeons are evaluating her as well. With regard to therapy, she is making slow progress. She did have a bowel movement this morning. Medical issues as follows: 1. Diabetes mellitus: Blood sugars are monitored. She is on glimepiride and metformin and a sliding insulin scale. Sugars are noted. 2. Abdominal pain with nausea and vomiting status post open cholecystectomy and removal of choledocholithiasis: Continues to have a white count of 20,000. CT scan shows dilatation of common bile duct. Surgeons are monitoring. 3. Generalized debilitation 4. History of UTIs without current evidence of infection. Recent culture growing mixed rohan. Exam Vital Signs: Temperature 97.9 F 05/23/17 10:00 Pulse Rate 96 05/23/17 10:00 Respiratory Rate 18 05/23/17 10:00 Blood Pressure 152/72 H 05/23/17 10:00 Pulse Oximetry 96 05/23/17 10:00 Oxygen Delivery Method Room Air Oxygen Flow Rate 1 Height/Weight/BMI: Height 1.5 m Weight 62.7 kg Body Mass Index 29.7 Comments: The patient is awake, alert and oriented and in moderate distress with regard to pain and nausea and vomiting. Pupils are equal. The neck is supple. Chest: Clear to auscultation bilaterally. Cor: RR with no gallop, click nor murmur Abd: soft but tender with normo-active bowel sounds. Drains in place. No active inflammation seen externally. Abdomen is somewhat tender. Bowel sounds however are present. Reports that she had a bowel movement today. Extremities: No edema is noted. There are good pulses in both ankles. No cyanosis is present. Results IRU - Labs Labs: Reviewed laboratory with white count of 20,000. Sepsis Assessment - Evaluation Sepsis screening result: Sepsis Risk IRU A/P (1) Choledocholithiasis with acute cholecystitis with obstruction Current visit: Yes Status: Acute She is status post open cholecystectomy and common bile duct exploration. T tube remains in place. Does have nausea and vomiting today. Comprise of abdominal pain. Surgeons are monitoring. (2) Diabetes mellitus Qualifiers: Diabetes mellitus type: type 2 Diabetes mellitus complication status: without complication Diabetes mellitus emt intermediate insulin use: without shelter use Qualified Code(s): E11.9 - Type 2 diabetes mellitus without complications Current visit: No Status: Chronic Patient on oral agents as well as on sliding insulin scale. Sugars remained stable. (3) Leukocytosis Qualifiers: Leukocytosis type: bandemia Qualified Code(s): D72.825 - Bandemia Current visit: Yes Status: Acute Patient's white count did increase to 20,000. Does have 10% bands. She is on Zosyn. Surgeons monitoring. DVT Prophylaxis: Lovenox Resuscitation Status: Full Code - Course Hospital Course: Francisco Vega MD: 05/23/17 11:54 Has had a bowel movement by her report. Comprise abdominal pain, nausea and vomiting. White count 20,000 Afebrile Remains on Zosyn. CT scan today demonstrates dilatation of common bile duct but without overt bile leakage. - Interventions to Obtain Goals PT Treatment Plan: Balance/Proprioception, Functional Activities, Gait Training , Patient/Family Education, Therapeutic Exercise OT Treatment Plan: ADL (Basic Care), Balance Training, IADL, Pt./Family Education, Ther. Exercise for ADL Goals Progress/Modifications: Abdominal pain, nausea and vomiting are limiting therapy progress. However she is cooperative and trying to work with therapies. Surgeons are monitoring the white count etc.
--- NOTE | 2017-05-23 12:17 | Progress Note ---
<RuthyKrystal Francesco - Last Filed: 05/23/17 12:14> Subjective: Alicia was feeling better by the time I arrived in her room. She vomited 500 cc early this am. She is asking for something to eat currently. She denies any abdominal pain at the moment. She has been having bowel movements. She denies feeling dizzy or SOA. She has been afebrile. Objective Vital signs: Temperature 97.9 F 05/23/17 10:00 Pulse Rate 96 05/23/17 10:00 Respiratory Rate 18 05/23/17 10:00 Blood Pressure 152/72 H 05/23/17 10:00 Pulse Oximetry 96 05/23/17 10:00 Oxygen Delivery Method Room Air Oxygen Flow Rate 1 Rhythm: Sinus Tachycardia Height/Weight/BMI: Height 1.5 m Weight 62.7 kg Body Mass Index 29.7 - Constitutional Present: no acute distress, well nourished, well developed - Routine HEENT Exam Eye: Absent: conjunctival icterus ENT: Present: oropharynx clear - Routine Respiratory Exam Present: CTA bilaterally - Routine Cardiovascular Exam Present: S1, S2 - Routine Abdominal Exam Present: soft, normoactive bowel sounds - Routine Extremities Exam Present: no edema, pulses intact - Routine Musculoskeletal Exam Musculoskeletal: Present: moving extremities well - Routine Skin Exam Present: intact, dry, warm, wounds (abdomen) - Routine Neurological Exam Present: alert, oriented X3 - Routine Psychiatric Exam Present: normal affect, cooperative Results - Labs CBC & Chem 7: 05/23/17 08:11 05/23/17 08:11 Microbiology Results: Microbiology 05/21/17 09:57 Peripheral/Iv Start Blood Culture - Preliminary No Growth After 2 Days 05/21/17 09:51 Peripheral/Iv Start Blood Culture - Preliminary No Growth After 2 Days 05/21/17 10:18 Urine, Voided (Cc/notcc) Urine Culture - Final Mixed Bacterial Sara Assessment and Plan (1) Choledocholithiasis with acute cholecystitis with obstruction Current visit: Yes Status: Acute (2) Postoperative urinary retention Current visit: Yes Status: Acute (3) Sepsis Current visit: Yes Status: Acute DVT Prophylaxis: Lovenox GI Prophylaxis: Protonix Resuscitation Status: Full Code Assessment and Plan: Assessment. Abdominal pain Constipation Leukocytosis; possible sepsis 05/13/17: Laparoscopic with conversion to open cholecystectomy with intraoperative cholangiogram, open common bile duct exploration and placement of T-tube. (Dr. Cantu) Mild normocytic anemia Type 2 DM, noninsulin dependent. Hgb A1c was 6.6% on 02/03/17. HLD HTN Schizophrenia Right breast cancer, resolved. PUD, GERD Insomnia Osteoporosis Urinary retention - Ho reinserted on 05/21/17 Plan. Pt had vomiting again today - Michele Dodgeeder has already evaluated her and changed her diet to NPO. Bowels are working on current bowel regimen - add'l suppository ordered. WBC remains elevated but bands have decreased to 10%. Continue Zosyn. Mild increased in AP, other chemistries and LFTs are stable. Repeat labs in am. Sepsis Assessment - Evaluation Sepsis screening result: Sepsis Risk Hospital Course Summary Disclaimer: The visit summary below is not to be considered part of the above Progress Note. Hospital Course: 05/19/17 - HOSPITALIST CONSULT ASSESSMENT 05/13/17: Laparoscopic with conversion to open cholecystectomy with intraoperative cholangiogram, open common bile duct exploration and placement of T-tube. (Dr. Cantu) Mild normocytic anemia Type 2 DM, noninsulin dependent. Hgb A1c was 6.6% on 02/03/17. HLD HTN Schizophrenia Right breast cancer, resolved. PUD, GERD Insomnia Osteoporosis PLAN Monitor blood sugars. Pt is refusing SSI. Resume glimepiride, monitoring for hypoglycemia. Consistent carb dieet. Hgb slightly low - follow periodically. Recent low urinary outputs but renal function has remained stable. Postop care, drains - per Dr. Cantu. 05/21/17 09:57 Patient appears acutely septic with tachycardia, leukocytosis and bandemia, low body temp. Will obtain BC x 2. Serum lactate now. UA with cx and CXR now. Suspected source is urine, but given recent abdominal surgery, will need broader coverage. Start Zosyn and Vanco with pharmacy consult for vanco management. Fluid bolus x 2 hours, then continue IVF. NPO status with clear liquid sips and chips. Hold PO meds, change to IV route as appropriate. Start tele, Q 2 hours VS for monitoring. BG has been fairly stable, continue to monitor for now. Hold PO meds for DM. We can add sliding scale if needed. Repeat labs at 3pm for stability, improvement. BP is high, but suspect due to acute pain and illness. Hold off on treatment given concern for developing sepsis. Continue to monitor closely. D/W RN, again chart is reviewed for collateral information. Acuity is high given concern for sepsis. High risk meds include IV narcotics and decision to initiate treatment for sepsis. 05/22/17 KUB was performed showing large amount of stool. Lactulose and fleet's enema ordered. Cotinue NPO status with clear liquid sips and chips. Start IVF's - NS at 100ml/ hour Meds currently being held for DM as BS's have been reasonable. Sliding scale insulin ordered. 05/23/17 12:24 <Neda Jarquin - Last Filed: 05/23/17 20:45> Objective Vital signs: Temperature 97.6 F 05/23/17 19:24 Pulse Rate 96 05/23/17 19:24 Respiratory Rate 16 05/23/17 19:24 Blood Pressure 154/79 H 05/23/17 19:24 Pulse Oximetry 95 05/23/17 19:24 Oxygen Delivery Method Room Air Oxygen Flow Rate 1 Height/Weight/BMI: Height 1.5 m Weight 62.7 kg Body Mass Index 29.7 Results - Labs CBC & Chem 7: 05/23/17 08:11 05/23/17 08:11 Microbiology Results: Microbiology 05/21/17 09:57 Peripheral/Iv Start Blood Culture - Preliminary No Growth After 2 Days 05/21/17 09:51 Peripheral/Iv Start Blood Culture - Preliminary No Growth After 2 Days 05/21/17 10:18 Urine, Voided (Cc/notcc) Urine Culture - Final Mixed Bacterial Sara Assessment and Plan (1) Choledocholithiasis with acute cholecystitis with obstruction Current visit: Yes Status: Acute (2) Postoperative urinary retention Current visit: Yes Status: Acute (3) Sepsis Current visit: Yes Status: Acute Assessment and Plan: I have independently evaluated and examined this patient. I reviewed the chart, the patient's history, and the WATCH CRYST[employer] CUTTER/PA's documented findings as above. We discussed and formulated the assessment and plan as above with additions as below: Mrs. Ba was reassessed after recurrent nausea and vomiting yesterday evening which time she was made nothing by mouth (notation made that her diet was changed to nothing by mouth again this morning although she should've been nothing by mouth all night). She reported that she was feeling somewhat better this morning after vomiting. She's had several bowel movements and denied nausea when seen. Afebrile, alert Respirations nonlabored Abdomen soft with minimal tenderness on palpation, no guarding today Discussed with Dr. Cantu-exam improved compared to the past 2 days. However white count remains elevated with left shift. Continue to monitor closely, KUB/chest x-ray in a.m. Hospital Course Summary Disclaimer: The visit summary below is not to be considered part of the above Progress Note.
--- NOTE | 2017-05-23 14:54 | Progress Note ---
DATE OF VISIT 05/23/2017 FINDINGS Ms. Ba was seen earlier this morning. She states that she did have some nausea and a small amount of emesis. Upon questioning the patient, she really denied any element of abdominal pain. The patient then stated that she did have some pain within her right lower quadrant. She denied pain along her prior surgical incision or within the upper abdomen. VITALS: Afebrile. Normotensive. The patient has been slightly tachycardic. CHEST: Clear to auscultation bilaterally. HEART: Regular rate and rhythm. Normal S1 and S2 without gallops, murmurs or clicks. ABDOMEN: Attention was focused to her abdomen. Her subcostal and other incisions are clean, dry and intact with no significant evidence for erythema or drainage. KWABENA drain is serosanguineous and nonbilious in nature. T- tube exits from the right upper quadrant. T-tube is clamped. There is no evidence for drainage of bilious material around the T-tube today. Palpation of her abdomen reveals it is soft and essentially nontender throughout. I was able to palpate fairly firmly throughout her abdomen and did not elicit any significant tenderness. LABORATORY/RADIOGRAPH EVALUATION The patient's white count did increase over the weekend. Exact etiology is somewhat unclear. White count was 20,000 today. Did have a left shift with 83 % neutrophils and 10% bands. A CMP was obtained and her liver function tests are stable. Bilirubin is 0.9. AST is normal at 23, ALT normal at 47. Alk phos was minimally elevated at 139. Radiographically, she did have a CT scan obtained over the weekend. I did review the CT scan personally. There was some fluid present within the pelvis, but there was no fluid within the perihepatic region. One with think if the patient does have a T-tube that is leaking from the choledochotomy there would be some fluid within the perihepatic space. Furthermore, one would think that her KWABENA drainage would be bilious in nature. As a result of the above circumstances, I do not feel the patient has a biliary leak. ASSESSMENT 76-year-old female status post open cholecystectomy with formal common bile duct exploration secondary to choledocholithiasis. The patient has developed leukocytosis of uncertain etiology over the last 24-48 hours. The patient is without acute surgical abdomen. The patient is without findings to suggest a biliary leak. PLAN I did review the patient's current orders. She has been started empirically on antibiotics and is on Zosyn 3.375 g IV q.6h. There was some question whether or not a T-tube cholangiogram needed to be completed today. I do not feel this would be beneficial. Her T-tube is clamped. Her liver function tests remain stable. Her bilirubin is not rising. There is no evidence for bilious drainage within the KWABENA drain which is adjacent to the T-tube/gallbladder fossa. I do not believe that her leukocytosis is of an abdominal etiology. Her abdomen is soft and essentially nontender. Will continue to follow along in the patient's care. LUIS
[2017-05-23] MEDS: NS 1,000 ML IV SCH (15:15)
[2017-05-23] MEDS: SIMVASTATIN 40 MG TABLET PO SCH (21:32)
[2017-05-24] MEDS: NS 1,000 ML IV SCH (02:00)
[2017-05-24] MEDS: PIPERACILLIN/TAZOBACTAM 3.375 GM in NS 100 ML IV SCH ×3 (04:33→17:11)
[2017-05-24] MEDS: OMEPRAZOLE 20 MG CAPSULE PO SCH (06:22)
[2017-05-24] MEDS: ENOXAPARIN 40 MG/0.4 ML INJECTION SQ SCH (08:45)
[2017-05-24] MEDS: ONDANSETRON ODT 4 MG TABLET PO PRN (09:15)
--- NOTE | 2017-05-24 09:21 | XRay Report ---
INDICATION: abdominal pain PROCEDURE: CHEST 2-VIEWS UPRIGHT (PA & LAT) Encounter: Initial COMPARISON: May 21, 2017 FINDINGS: Emphysema. Increased interstitial markings. No lobar consolidation. Small pleural effusions. Heart size and mediastinal contours are stable. Pulmonary vascularity is indistinct. Impression: New mild to moderate pulmonary edema. .
--- NOTE | 2017-05-24 09:23 | XRay Report ---
Indication: abdominal pain PROCEDURE: XR KUB w upright: Encounter: Initial Comparison: May 22, 2017 Findings: Surgical sarah and drains are again noted. There are scattered nondifferential air-fluid levels identified. No free air. Bibasilar airspace disease. Small and large bowel gas is seen to the level of the rectum. Mildly prominent small bowel in the left abdomen measuring up to 3.8 cm in size. Impression: Findings consistent with a postoperative ileus. .
--- NOTE | 2017-05-24 09:35 | Progress Note ---
Subjective: Alicia was seen during breakfast - she doesn't care for the liquid diet and requests some oatmeal instead. She denies any abdominal pain currently; no nausea/vomiting since yesterday am. She denies chest pain, difficulty breathing , or cough. Objective Vital signs: Temperature 97.4 F 05/24/17 03:00 Pulse Rate 88 05/24/17 03:00 Respiratory Rate 18 05/24/17 03:00 Blood Pressure 154/74 H 05/24/17 03:00 Pulse Oximetry 97 05/24/17 03:00 Oxygen Delivery Method Room Air Oxygen Flow Rate 1 Rhythm: Sinus Tachycardia Height/Weight/BMI: Height 1.5 m Weight 62.7 kg Body Mass Index 29.7 - Constitutional Present: no acute distress, well nourished, well developed - Routine HEENT Exam Eye: Absent: conjunctival icterus ENT: Present: mucous membranes moist, oropharynx clear - Routine Respiratory Exam Present: decreased breath sounds, CTA bilaterally - Routine Cardiovascular Exam Present: RRR, S1, S2 - Routine Abdominal Exam Present: soft, non tender. Absent: normoactive bowel sounds (slightly hypoactive) - Routine Extremities Exam Present: no edema, pulses intact - Routine Musculoskeletal Exam Musculoskeletal: Present: moving extremities well - Routine Skin Exam Present: intact, dry, warm - Routine Neurological Exam Present: alert, oriented X3 - Routine Psychiatric Exam Present: normal affect, cooperative Results - Labs CBC & Chem 7: 05/24/17 05:21 05/24/17 05:21 Microbiology Results: Microbiology 05/21/17 09:57 Peripheral/Iv Start Blood Culture - Preliminary No Growth After 2 Days 05/21/17 09:51 Peripheral/Iv Start Blood Culture - Preliminary No Growth After 2 Days 05/21/17 10:18 Urine, Voided (Cc/notcc) Urine Culture - Final Mixed Bacterial Sara Assessment and Plan (1) Choledocholithiasis with acute cholecystitis with obstruction Current visit: Yes Status: Acute (2) Postoperative urinary retention Current visit: Yes Status: Acute (3) Sepsis Current visit: Yes Status: Acute DVT Prophylaxis: Lovenox GI Prophylaxis: other (Prilosec) Resuscitation Status: Full Code Assessment and Plan: Assessment Abdominal pain Constipation Leukocytosis; possible sepsis - Zosyn was started on 05/21/17 05/13/17: Laparoscopic with conversion to open cholecystectomy with intraoperative cholangiogram, open common bile duct exploration and placement of T-tube. (Dr. Cantu) Mild normocytic anemia Type 2 DM, noninsulin dependent. Hgb A1c was 6.6% on 02/03/17. HLD HTN Schizophrenia Right breast cancer, resolved. PUD, GERD Insomnia Osteoporosis Urinary retention - Ho reinserted on 05/21/17 Plan Denies abdominal pain today; no nausea. No emesis since early yesterday am. Continues to have bowel movements. KUB shows postop ileus. WBC has trended down and is into normal range today. However, LFTs have increased compared to yesterday. Continue Zosyn; clear liquid diet per Dr. Cantu. CXR shows new pulmonary edema - IVF stopped. No significant respiratory symptoms ; will monitor and add diuretics if needed. K decreased to 3.1 - given ileus and recent n/v, give IV KCl bolus. Mg was checked and was actually elevated at 2.4. Sepsis Assessment - Evaluation Sepsis screening result: Severe Sepsis Risk Hospital Course Summary Disclaimer: The visit summary below is not to be considered part of the above Progress Note. Hospital Course: 05/19/17 - HOSPITALIST CONSULT ASSESSMENT 05/13/17: Laparoscopic with conversion to open cholecystectomy with intraoperative cholangiogram, open common bile duct exploration and placement of T-tube. (Dr. Cantu) Mild normocytic anemia Type 2 DM, noninsulin dependent. Hgb A1c was 6.6% on 02/03/17. HLD HTN Schizophrenia Right breast cancer, resolved. PUD, GERD Insomnia Osteoporosis PLAN Monitor blood sugars. Pt is refusing SSI. Resume glimepiride, monitoring for hypoglycemia. Consistent carb dieet. Hgb slightly low - follow periodically. Recent low urinary outputs but renal function has remained stable. Postop care, drains - per Dr. Cantu. 05/21/17 09:57 Patient appears acutely septic with tachycardia, leukocytosis and bandemia, low body temp. Will obtain BC x 2. Serum lactate now. UA with cx and CXR now. Suspected source is urine, but given recent abdominal surgery, will need broader coverage. Start Zosyn and Vanco with pharmacy consult for vanco management. Fluid bolus x 2 hours, then continue IVF. NPO status with clear liquid sips and chips. Hold PO meds, change to IV route as appropriate. Start tele, Q 2 hours VS for monitoring. BG has been fairly stable, continue to monitor for now. Hold PO meds for DM. We can add sliding scale if needed. Repeat labs at 3pm for stability, improvement. BP is high, but suspect due to acute pain and illness. Hold off on treatment given concern for developing sepsis. Continue to monitor closely. D/W RN, again chart is reviewed for collateral information. Acuity is high given concern for sepsis. High risk meds include IV narcotics and decision to initiate treatment for sepsis. 05/22/17 KUB was performed showing large amount of stool. Lactulose and fleet's enema ordered. Cotinue NPO status with clear liquid sips and chips. Start IVF's - NS at 100ml/ hour Meds currently being held for DM as BS's have been reasonable. Sliding scale insulin ordered. 05/24/17 Denies abdominal pain today; no nausea. No emesis since early yesterday am. Continues to have bowel movements. KUB shows postop ileus. WBC has trended down and is into normal range today. However, LFTs have increased compared to yesterday. Continue Zosyn; clear liquid diet per Dr. Cantu. CXR shows new pulmonary edema - IVF stopped. No significant respiratory symptoms ; will monitor and add diuretics if needed. K decreased to 3.1 - given ileus and recent n/v, give IV KCl bolus. Mg was checked and was actually elevated at 2.4.
[2017-05-24] MEDS: INSULIN ASPART 100unit/ml INJECTION SQ PRN ×2 (10:12→21:02)
[2017-05-24] MEDS: SENNA + DOCUSATE TABLET PO SCH ×2 (10:12→21:47)
[2017-05-24] MEDS: LACTULOSE 20 GM/30 ML ORAL LIQUID PO SCH ×2 (10:12→21:46)
[2017-05-24] MEDS: LIDOCAINE 1% 2ml INJ 10 MG, POTASSIUM CHLORIDE INJ 10 MEQ in NS 100 ML IV SCH ×4 (10:20→17:09)
[2017-05-24] MEDS: POLYETHYL GLYCOL 3350 17gm PACKET PO SCH ×2 (10:21→21:46)
--- NOTE | 2017-05-24 11:53 | IRU Progress Note ---
- Subjective/Serverity of Illness Alicia is improving with therapies. Continues to complain of some nausea. Is having bowel movements. Denies any abdominal pain. Appreciate assessment of hospitalists and surgeon. Repeat blood count shows a normalized white count at 10,000. Exam Vital Signs: Temperature 97.4 F 05/24/17 11:00 Pulse Rate 89 05/24/17 11:00 Respiratory Rate 16 05/24/17 11:00 Blood Pressure 160/77 H 05/24/17 11:00 Pulse Oximetry 95 05/24/17 11:00 Oxygen Delivery Method Room Air Oxygen Flow Rate 1 Height/Weight/BMI: Height 1.5 m Weight 62.7 kg Body Mass Index 29.7 Comments: The patient is awake, alert and oriented and in no acute distress. Pupils are equal. The neck is supple. Chest: Clear to auscultation bilaterally. Cor: RR with no gallop, click nor murmur Abd: soft with normo-active bowel sounds. There are no masses, no tenderness and no guarding. Wound appears to be healing adequately. Extremities: No edema is noted. There are good pulses in both ankles. No cyanosis is present. The patient's wounds in the abdomen are clean and dry and without inflammation. Results IRU - Labs Labs: Reviewed blood work with normalized white count at 10,000. Sepsis Assessment - Evaluation Sepsis screening result: Severe Sepsis Risk IRU A/P (1) Choledocholithiasis with acute cholecystitis with obstruction Current visit: Yes Status: Acute Denies abdominal pain. No evidence of obstruction at present. (2) Diabetes mellitus Qualifiers: Diabetes mellitus type: type 2 Diabetes mellitus complication status: without complication Diabetes mellitus retirement insulin use: without terminal press operator use Qualified Code(s): E11.9 - Type 2 diabetes mellitus without complications Current visit: No Status: Chronic Blood sugars reviewed. Does complain of some nausea. (3) Leukocytosis Qualifiers: Leukocytosis type: bandemia Qualified Code(s): D72.825 - Bandemia Current visit: Yes Status: Resolved Etiology of leukocytosis not clear but appears to have resolved. DVT Prophylaxis: Lovenox Resuscitation Status: Full Code - Course Hospital Course: Francisco Vega MD: 05/23/17 11:54 Has had a bowel movement by her report. Comprise abdominal pain, nausea and vomiting. White count 20,000 Afebrile Remains on Zosyn. CT scan today demonstrates dilatation of common bile duct but without overt bile leakage. 05/24/17 11:53 Continues to have some nausea. Blood count significant only improved with white count 10,000. Has had bowel movements with significant laxative input. Denies abdominal pain. She is improving with therapies. - Interventions to Obtain Goals PT Treatment Plan: Balance/Proprioception, Functional Activities, Gait Training , Patient/Family Education, Therapeutic Exercise OT Treatment Plan: ADL (Basic Care), Balance Training, IADL, Pt./Family Education, Ther. Exercise for ADL
--- NOTE | 2017-05-24 15:48 | IRU Team Meeting ---
IRU Team Meeting - Nursing Vital Signs: Vital Signs - 24 hr 05/23/17 16:00 05/23/17 19:24 05/23/17 23:24 Temperature 98.1 F 97.6 F 97.4 F Pulse Rate 94 96 97 Respiratory Rate 12 16 20 Blood Pressure 159/71 H 154/79 H 143/72 H Pulse Oximetry 95 95 96 05/24/17 00:00 05/24/17 03:00 05/24/17 07:00 Temperature 97.4 F 98.2 F Pulse Rate 96 88 85 Respiratory Rate 18 16 Blood Pressure 154/74 H 139/65 Pulse Oximetry 97 92 05/24/17 11:00 Temperature 97.4 F Pulse Rate 89 Respiratory Rate 16 Blood Pressure 160/77 H Pulse Oximetry 95 Current Medications: Acetaminophen/Hydrocodone Bitart ([place] 5/325) 2 tab PO PRN PRN PRN Reason: Pain Last Admin: 05/20/17 23:59 Dose: 2 tab Bismuth Subsalicylate (Pepto-Bismol) 262 mg PO QID PRN Last Admin: 05/22/17 17:21 Dose: 262 mg Calcium Carbonate (Calcium) 500 mg PO HS PAKO Last Admin: 05/20/17 20:32 Dose: 500 mg Calcium Carbonate (Tums) 1,000 mg PO PRN PRN PRN Reason: Dyspepsia Last Admin: 05/20/17 22:09 Dose: 1,000 mg Diphenhydramine HCl (Benadryl) 25 mg PO Q8H PRN PRN Reason: Itching Last Admin: 05/20/17 20:28 Dose: 25 mg Enoxaparin Sodium (Lovenox) 40 mg SQ DAILY PAKO Last Admin: 05/24/17 08:45 Dose: 40 mg Glimepiride (Amaryl) 2 mg PO WB [facility] Last Admin: 05/21/17 10:22 Dose: Not Given Hydromorphone HCl (Dilaudid) 0.5 mg IVP Q2H PRN PRN Reason: Pain Last Admin: 05/22/17 16:08 Dose: 0.5 mg Piperacillin Sod/Tazobactam (Sod 3.375 gm/ Sodium Chloride) 100 mls @ 200 mls/ hr IV Q6H [facility] Last Infusion: 05/24/17 09:25 Dose: Infused Insulin Aspart (Novolog) 0 unit SQ SS PRN; Protocol PRN Reason: Hyperglycemia Last Admin: 05/24/17 10:12 Dose: 2 unit Lactulose (Lactulose) 20 gm PO BID [facility] Last Admin: 05/24/17 10:12 Dose: 20 gm Metformin HCl (Glucophage) 500 mg PO BIDWM [facility] Last Admin: 05/21/17 10:23 Dose: Not Given Multivitamins (Theragran) 1 tab PO DAILY [facility] Last Admin: 05/21/17 10:31 Dose: Not Given Omeprazole (Prilosec) 40 mg PO ACB [facility] Last Admin: 05/24/17 06:22 Dose: 40 mg Ondansetron HCl (Zofran Po) 4 mg PO Q4H PRN PRN Reason: Nausea &/or vomiting Last Admin: 05/24/17 09:15 Dose: 4 mg Ondansetron HCl (Zofran) 4 mg IVP Q6H PRN PRN Reason: Nausea &/or vomiting Last Admin: 05/22/17 17:31 Dose: 4 mg Polyethylene Glycol (Miralax) 17 gm PO BID [facility] Last Admin: 05/24/17 10:21 Dose: Not Given Senna/Docusate Sodium (Senna Plus Tablet) 2 tab PO BID [facility] Last Admin: 05/24/17 10:12 Dose: 2 tab Simvastatin (Zocor) 40 mg PO HS [facility] Last Admin: 05/23/17 21:32 Dose: Not Given Sodium Chloride (Normal Saline) 500 ml IV PRN PRN Sodium Chloride (Iv Flush) 10 ml IV PRN PRN PRN Reason: Flushing Comments: Patient remains on Zosyn. Has occasional nausea. Bowels are moving better with laxatives. She is afebrile. White count has improved to 10,000. Diet is still restricted. Denies any abdominal pain. - Physical Therapy Comments: Physical therapy continues to work with patient. Bed, chair, wheelchair transfers are with standby assistance. She is doing stairs with contact-guard assistance. Safety awareness continues to be a concern. She is somewhat impulsive. - Occupational Therapy Lower Body Dressing Comment: Occupational therapy is working with patient. She is using a sock aid. Uses a bull gang worker. Improving and nearly has met goals. - Care Plan Anticipated Length of Stay: 3 Anticipated DC Destination: Home, Self Care Interventions/Goals: Barriers to dismissal: Safety awareness, continues on intravenous Zosyn, diet limited at present. Goals: Advancing diet to adequate nutrition, improved safety awareness ( characterized by no verbal cues in a 30 minute time span).
[2017-05-24] MEDS: HYDROCODONE/APAP 5mg/325mg TABLET PO PRN (20:16)
[2017-05-24] MEDS: SIMVASTATIN 40 MG TABLET PO SCH (20:16)
[2017-05-25] MEDS: HYDROCODONE/APAP 5mg/325mg TABLET PO PRN (05:57)
[2017-05-25] MEDS: OMEPRAZOLE 20 MG CAPSULE PO SCH (05:57)
[2017-05-25] MEDS: ONDANSETRON ODT 4 MG TABLET PO PRN (05:58)
[2017-05-25] MEDS: INSULIN ASPART 100unit/ml INJECTION SQ PRN ×4 (06:05→21:28)
[2017-05-25] MEDS: ENOXAPARIN 40 MG/0.4 ML INJECTION SQ SCH (08:39)
--- NOTE | 2017-05-25 09:36 | XRay Report ---
Indication: Recent HX of postoperative ileus PROCEDURE: XR KUB: Encounter: Initial Comparison: May 24, 2017 Findings: Surgical sarah and surgical drains again noted along with a T-tube. No gross free air on this supine view. There is continued mild gaseous dilatation of small and large bowel similar pattern and distribution to the comparison study. Bony structures are unchanged. Impression: Similar appearance of the postoperative ileus. .
--- NOTE | 2017-05-25 11:13 | IRU Progress Note ---
- Subjective/Serverity of Illness Today, and is complaining of a bit of "dizziness." She points to her forehead. She is unable to specify this further. She is not able to say whether this is vertigo versus lightheadedness versus headache. She does not have any nausea or vomiting. She specifically denies any abdominal pain. She is having bowel movements and has been on quite a bit of laxity. KUB today shows continued evidence of either ileus or constipation. Otherwise she is awake alert and oriented. With regard to therapies, she continues to improve. She is walking 650 feet with standby assistance. She is doing 12 stairs. Seems to be improving well. Anticipation of dismissal in the next several days. Medical issues as follows: 1. Diabetes mellitus: Blood sugars are monitored. She is on glimepiride and metformin and a sliding insulin scale. Sugars are noted. Today sugars a bit up at 232. Has not had hypoglycemic episodes. 2. Status post open cholecystectomy. T-tube remains in place. Drain remains in place as well. Denies abdominal pain. Diet is advancing. 3. Generalized debilitation: She is improving regarding ambulations, transfers and ADLs. Somewhat impulsive and safety awareness remains an issue. 4. History of UTIs without current evidence of infection. Recent culture growing mixed rohan. Exam Vital Signs: Temperature 98.2 F 05/25/17 04:05 Pulse Rate 95 05/25/17 09:00 Respiratory Rate 18 05/25/17 09:00 Blood Pressure 147/69 H 05/25/17 09:00 Pulse Oximetry 96 05/25/17 09:00 Height/Weight/BMI: Height 1.5 m Weight 62.7 kg Body Mass Index 29.7 Comments: The patient is awake, alert and oriented and in no acute distress. Complains of "dizziness" and points to her forehead. She attributes this to eating too much sugar. When she found out her sugar was 232 she attributed the "dizziness" to the blood sugar. Pupils are equal. The neck is supple. Chest: Clear to auscultation bilaterally. Cor: RR with no gallop, click nor murmur Abd: soft with normo-active bowel sounds. Abdomen continues to be soft. No evidence of inflammation nor distention significantly. KUB reviewed. Extremities: No edema is noted. Surgical wound in the abdomen appears to be unremarkable. No evidence of infection. Results IRU - Labs Labs: KUB noted. Sugars noted. Sepsis Assessment - Evaluation Sepsis screening result: No Definite Risk IRU A/P (1) Choledocholithiasis with acute cholecystitis with obstruction Current visit: Yes Status: Acute Seems to be quite stable with regard to her recent surgery. No evidence of common bile duct obstruction at present. Appetite has improved and her diet as been advanced. 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 Remains on oral medications. (3) Leukocytosis Qualifiers: Leukocytosis type: bandemia Qualified Code(s): D72.825 - Bandemia Current visit: Yes Status: Resolved Repeat CBC shows improvement in both hemoglobin and white count. White count has remained normal. DVT Prophylaxis: Lovenox Resuscitation Status: Full Code - Course Hospital Course: Francisco Vega MD: 05/23/17 11:54 Has had a bowel movement by her report. Comprise abdominal pain, nausea and vomiting. White count 20,000 Afebrile Remains on Zosyn. CT scan today demonstrates dilatation of common bile duct but without overt bile leakage. 05/24/17 11:53 Continues to have some nausea. Blood count significant only improved with white count 10,000. Has had bowel movements with significant laxative input. Denies abdominal pain. She is improving with therapies. 05/25/17 11:14 Patient complains of dizziness of unclear etiology or nature. Blood sugar 232. No abdominal pain. Diet has been advanced and tolerated well. Bowel movements are improved with laxatives. Safety awareness continues to be an issue from a therapy standpoint. - Interventions to Obtain Goals PT Treatment Plan: Balance/Proprioception, Functional Activities, Gait Training , Patient/Family Education, Therapeutic Exercise OT Treatment Plan: ADL (Basic Care), Balance Training, IADL, Pt./Family Education, Ther. Exercise for ADL
[2017-05-25] MEDS: POLYETHYL GLYCOL 3350 17gm PACKET PO SCH ×2 (15:17→21:28)
[2017-05-25] MEDS: SENNA + DOCUSATE TABLET PO SCH ×2 (15:17→21:28)
[2017-05-25] MEDS: LACTULOSE 20 GM/30 ML ORAL LIQUID PO SCH ×2 (15:18→21:29)
--- NOTE | 2017-05-25 15:24 | Progress Note ---
Subjective: Alicia is seen today in follow up for her recent open cholecystectomy. She is seen while resting in her room. She states that she feels tired but attributes her fatigue to having just finished with therapy. She reports that therapy is going well but continues to have increased pain with movement, rating her current pain at 8/10. She states that she just received some pain medication prior to exam and complains of feeling a little dizzy while laying down. During the exam she also admits that she feels like her blood sugars are elevated. BGM on exam revealed blood sugar of 205 and she was due to receive her insulin at that time as it was prior to lunch. She also states that her pain medication (norco) makes her feel dizzy. She denies any chest pain, shortness of breath, abdominal pain, nausea, vomiting or dysuria. Review of prior medical records and nursing notes report that she had a oxygenation of 90 % previously. Recheck on exam revealed pulse ox of 95% on room air. Nursing states that she continues to need encouragement and reminders to do her incentive spirometry. Importance of deep breathing and incentive spirometry discussed and technique reviewed on exam. She states that she does not have much of an appetite. She has had multiple small liquid stools and she feels her bowels are moving. She remains on a full liquid diet. Chart review indictes that she sustained an 8-beat episode of Vtach last night and the telehospitalist was notified. No reoccurrence since. On exam, she is resting in bed and arouses easily. She is alert and orientated x 3 and in no apparent distress. Mucous membranes are tacky. Cardiac exam reveals regular rate and rhythm and lungs are clear to auscultation. Abdomen is soft, nontender with hypoactive bowel sounds. [place] intact and surgical incision is clean and dry without signs of discharge, blood or erythema. Repeat KUB this AM revealed little change from prior with post-op ileus noted on 05/24. No edema noted to lower extremities and current SCDs are off. No tenderness or swelling to calves or lower extremities with pulses intact. Objective Vital signs: Temperature 98.7 F 05/25/17 12:23 Pulse Rate 92 05/25/17 12:23 Respiratory Rate 16 05/25/17 12:23 Blood Pressure 133/71 05/25/17 12:23 Pulse Oximetry 94 05/25/17 12:23 Rhythm: Sinus Tachycardia Height/Weight/BMI: Height 4 ft 11 in Weight 146 lb 13.246 oz Body Mass Index 29.7 - Constitutional Present: no acute distress, well nourished, well developed, cooperative - Routine HEENT Exam Head: Present: normocephalic, atraumatic Eye: Present: EOMI. Absent: conjunctival icterus ENT: Present: mucous membranes dry - Routine Respiratory Exam Present: CTA bilaterally. Absent: accessory muscle use, stridor, wheezes, crackles - Routine Cardiovascular Exam Present: RRR, S1, S2 - Routine Abdominal Exam Present: soft, non distended, non tender. Absent: rebound, guarding, firm Comments: surgical incision is clean, dry and sarah intact without discharge, bleeding or erythema; hypoactive bowel sounds. - Routine Extremities Exam Present: no edema, non tender, full ROM, pulses intact. Absent: cyanosis, clubbing - Routine Back/Spine/Pelvis Exam Back/Spine: Present: full ROM - Routine Musculoskeletal Exam Musculoskeletal: Present: no clubbing or cyanosis, no tenderness, moving extremities well - Routine Skin Exam Present: intact, dry, warm. Absent: erythema, jaundice Comments: afebrile - Routine Neurological Exam Present: alert, oriented X3, moving all extremities. Absent: facial asymmetry - Routine Lymphatic Exam Lymphatic: Absent: lymphedema - Routine Psychiatric Exam Present: cooperative Results - Labs CBC & Chem 7: 05/25/17 04:47 05/25/17 04:47 Microbiology Results: Microbiology 05/21/17 09:57 Peripheral/Iv Start Blood Culture - Preliminary No Growth After 4 Days 05/21/17 09:51 Peripheral/Iv Start Blood Culture - Preliminary No Growth After 4 Days 05/21/17 10:18 Urine, Voided (Cc/notcc) Urine Culture - Final Mixed Bacterial Sara Assessment and Plan (1) Choledocholithiasis with acute cholecystitis with obstruction Current visit: Yes Status: Acute (2) Postoperative urinary retention Current visit: Yes Status: Acute (3) Sepsis Current visit: Yes Status: Acute DVT Prophylaxis: SCD's GI Prophylaxis: other (priolsec) Resuscitation Status: Full Code Assessment and Plan: Assessment Abdominal pain, resolved. Leukocytosis; possible sepsis - Zosyn was started on 05/21/17, stopped on 05/24; resolved. 05/13/17: Laparoscopic with conversion to open cholecystectomy with intraoperative cholangiogram, open common bile duct exploration and placement of T-tube. (Dr. Cantu) Mild normocytic anemia, stable. Type 2 DM, noninsulin dependent. Hgb A1c was 6.6% on 02/03/17. HLD, chronic. HTN. chronic. Schizophrenia, chronic. Right breast cancer, resolved. PUD & GERD, chronic. Insomnia, chronic. Osteoporosis, chronic. Urinary retention - Ho reinserted on 05/21/17 Plan Denies abdominal pain today; no nausea. KUB on 05/24 and 05/25 were similar both revealing post-op ileus. She continues to have small liquid bowel movements. Continue bowel motivation and full liquid diet. She is tolerating liquids well. WBC stable at 7.7 with leukocytosis resolved. Continue to monitor. LFTs trending down. Recent CXR showed pulmonary edema. IVF stopped. Monitor closely for signs of fluid overload and respiratory symptoms. K slightly improved to 3.3 but remains low. Will give KCl 10mEq po now and recheck CMP in AM to monitor electrolytes, renal function and liver function. Recheck Mg as previously elevated at 2.4. Episode of 8-beat V-tach on tele last night. Continue to monitor closely on telemetry. Patient denies symptoms. Continue to monitor blood sugars closely and home medication for DM. Patient has previously refused SSI. Blood cultures remain negative after 4 days and patient remains afebrile. Hemoglobin improving at 11.0 and new thrombocytosis with platelets at 531. Recheck CBC to monitor blood counts. Discussed wound management with Dr. Cantu with regard to sarah. Recommends removing sarah 2 weeks from surgery date (06/02). Michele with Dr. Cantu to see patient today for additional recommendations. Appreciate their time and expertise. - Time spent with patient 25 - 35 minutes Sepsis Assessment - Evaluation Sepsis screening result: No Definite Risk Hospital Course Summary Disclaimer: The visit summary below is not to be considered part of the above Progress Note. Hospital Course: 05/19/17 - HOSPITALIST CONSULT ASSESSMENT 05/13/17: Laparoscopic with conversion to open cholecystectomy with intraoperative cholangiogram, open common bile duct exploration and placement of T-tube. (Dr. Cantu) Mild normocytic anemia Type 2 DM, noninsulin dependent. Hgb A1c was 6.6% on 02/03/17. HLD HTN Schizophrenia Right breast cancer, resolved. PUD, GERD Insomnia Osteoporosis PLAN Monitor blood sugars. Pt is refusing SSI. Resume glimepiride, monitoring for hypoglycemia. Consistent carb dieet. Hgb slightly low - follow periodically. Recent low urinary outputs but renal function has remained stable. Postop care, drains - per Dr. Cantu. 05/21/17 09:57 Patient appears acutely septic with tachycardia, leukocytosis and bandemia, low body temp. Will obtain BC x 2. Serum lactate now. UA with cx and CXR now. Suspected source is urine, but given recent abdominal surgery, will need broader coverage. Start Zosyn and Vanco with pharmacy consult for vanco management. Fluid bolus x 2 hours, then continue IVF. NPO status with clear liquid sips and chips. Hold PO meds, change to IV route as appropriate. Start tele, Q 2 hours VS for monitoring. BG has been fairly stable, continue to monitor for now. Hold PO meds for DM. We can add sliding scale if needed. Repeat labs at 3pm for stability, improvement. BP is high, but suspect due to acute pain and illness. Hold off on treatment given concern for developing sepsis. Continue to monitor closely. D/W RN, again chart is reviewed for collateral information. Acuity is high given concern for sepsis. High risk meds include IV narcotics and decision to initiate treatment for sepsis. 05/22/17 KUB was performed showing large amount of stool. Lactulose and fleet's enema ordered. Cotinue NPO status with clear liquid sips and chips. Start IVF's - NS at 100ml/ hour Meds currently being held for DM as BS's have been reasonable. Sliding scale insulin ordered. 05/24/17 Denies abdominal pain today; no nausea. No emesis since early yesterday am. Continues to have bowel movements. KUB shows postop ileus. WBC has trended down and is into normal range today. However, LFTs have increased compared to yesterday. Continue Zosyn; clear liquid diet per Dr. Cantu. CXR shows new pulmonary edema - IVF stopped. No significant respiratory symptoms ; will monitor and add diuretics if needed. K decreased to 3.1 - given ileus and recent n/v, give IV KCl bolus. Mg was checked and was actually elevated at 2.4. 05/25/17 15:36 Denies abdominal pain today; no nausea. KUB on 05/24 and 05/25 were similar both revealing post-op ileus. She continues to have small liquid bowel movements. Continue bowel motivation and full liquid diet. She is tolerating liquids well. WBC stable at 7.7 with leukocytosis resolved. Continue to monitor. LFTs trending down. Recent CXR showed pulmonary edema. IVF stopped. Monitor closely for signs of fluid overload and respiratory symptoms. K slightly improved to 3.3 but remains low. Will give KCl 10mEq po now and recheck CMP in AM to monitor electrolytes, renal function and liver function. Recheck Mg as previously elevated at 2.4. Episode of 8-beat V-tach on tele last night. Continue to monitor closely on telemetry. Patient denies symptoms. Continue to monitor blood sugars closely and home medication for DM. Patient has previously refused SSI. Blood cultures remain negative after 4 days and patient remains afebrile. Hemoglobin improving at 11.0 and new thrombocytosis with platelets at 531. Recheck CBC to monitor blood counts. Discussed wound management with Dr. Cantu with regard to sarah. Recommends removing sarah 2 weeks from surgery date (06/02). Michele with Dr. Cantu to see patient today for additional recommendations. Appreciate their time and expertise.
--- NOTE | 2017-05-25 19:37 | General Surgery Progress Note ---
Subjective Patient reports: feels better, pain is less, voiding w/o difficulty, bowel movement (liquid, brown), afebrile Narrative: Nursing called to notify that when patient was pulling up her slacks, the T- tube got caught and pulled nearly out . - Vital Signs Last Vital Signs Temp 97.4 F 05/25/17 15:26 Pulse 85 05/25/17 16:00 Resp 18 05/25/17 15:26 BP 151/70 H 05/25/17 15:26 Pulse Ox 94 05/25/17 15:26 - Laboratory Result Diagrams: 05/25/17 04:47 05/25/17 04:47 Laboratory Tests 05/24/17 05/25/17 05:21 04:47 Total Bilirubin 0.80 0.70 AST 44 H D 22 D ALT 62 H 54 H Alkaline Phosphatase 151 H 137 H - Microbiogy Microbiology 05/21/17 09:57 Peripheral/Iv Start Blood Culture - Preliminary No Growth After 4 Days 05/21/17 09:51 Peripheral/Iv Start Blood Culture - Preliminary No Growth After 4 Days - Abnormal Exam Abdominal: other (T-tube is out to the point where the "T" biforcation is bent and visible outside the skin. Minimal yellow drainage on the gauze drssing currently.) - Normal Exam General: alert, oriented, no acute distress Respiratory: no labored breathing Abdominal: soft, appropriately tender (mildly along subcostal incision), non- tender (generally), incision(s) (sarah in tact, no erythema or sign of infection.) Assessment and Plan (1) T-tube migration Current Visit: Yes Status: Acute Qualifiers: Encounter type: initial encounter Qualified Code(s): T85.528A - Displacement of other gastrointestinal prosthetic devices, implants and grafts, initial encounter (2) Choledocholithiasis with acute cholecystitis with obstruction Current Visit: Yes Status: Resolved Plan: At this pint the T-tube is completely out of the common duct and the "T" is in the subQ tissue with the biforcation exposed outside the skin. T-tube is therefore "pulled" and dry gauze applied. Will have staff change the gauze on an as needed basis and monitor her abd for peritonitis and repeat CMP in the morning. Hospital Course Summary Disclaimer: The visit summary below is not to be considered part of the above Progress Note. Hospital Course: 05/19/17 - HOSPITALIST CONSULT ASSESSMENT 05/13/17: Laparoscopic with conversion to open cholecystectomy with intraoperative cholangiogram, open common bile duct exploration and placement of T-tube. (Dr. Cantu) Mild normocytic anemia Type 2 DM, noninsulin dependent. Hgb A1c was 6.6% on 02/03/17. HLD HTN Schizophrenia Right breast cancer, resolved. PUD, GERD Insomnia Osteoporosis PLAN Monitor blood sugars. Pt is refusing SSI. Resume glimepiride, monitoring for hypoglycemia. Consistent carb dieet. Hgb slightly low - follow periodically. Recent low urinary outputs but renal function has remained stable. Postop care, drains - per Dr. Cantu. 05/21/17 09:57 Patient appears acutely septic with tachycardia, leukocytosis and bandemia, low body temp. Will obtain BC x 2. Serum lactate now. UA with cx and CXR now. Suspected source is urine, but given recent abdominal surgery, will need broader coverage. Start Zosyn and Vanco with pharmacy consult for vanco management. Fluid bolus x 2 hours, then continue IVF. NPO status with clear liquid sips and chips. Hold PO meds, change to IV route as appropriate. Start tele, Q 2 hours VS for monitoring. BG has been fairly stable, continue to monitor for now. Hold PO meds for DM. We can add sliding scale if needed. Repeat labs at 3pm for stability, improvement. BP is high, but suspect due to acute pain and illness. Hold off on treatment given concern for developing sepsis. Continue to monitor closely. D/W RN, again chart is reviewed for collateral information. Acuity is high given concern for sepsis. High risk meds include IV narcotics and decision to initiate treatment for sepsis. 05/22/17 KUB was performed showing large amount of stool. Lactulose and fleet's enema ordered. Cotinue NPO status with clear liquid sips and chips. Start IVF's - NS at 100ml/ hour Meds currently being held for DM as BS's have been reasonable. Sliding scale insulin ordered. 05/24/17 Denies abdominal pain today; no nausea. No emesis since early yesterday am. Continues to have bowel movements. KUB shows postop ileus. WBC has trended down and is into normal range today. However, LFTs have increased compared to yesterday. Continue Zosyn; clear liquid diet per Dr. Cantu. CXR shows new pulmonary edema - IVF stopped. No significant respiratory symptoms ; will monitor and add diuretics if needed. K decreased to 3.1 - given ileus and recent n/v, give IV KCl bolus. Mg was checked and was actually elevated at 2.4. 05/25/17 15:36 Denies abdominal pain today; no nausea. KUB on 05/24 and 05/25 were similar both revealing post-op ileus. She continues to have small liquid bowel movements. Continue bowel motivation and full liquid diet. She is tolerating liquids well. WBC stable at 7.7 with leukocytosis resolved. Continue to monitor. LFTs trending down. Recent CXR showed pulmonary edema. IVF stopped. Monitor closely for signs of fluid overload and respiratory symptoms. K slightly improved to 3.3 but remains low. Will give KCl 10mEq po now and recheck CMP in AM to monitor electrolytes, renal function and liver function. Recheck Mg as previously elevated at 2.4. Episode of 8-beat V-tach on tele last night. Continue to monitor closely on telemetry. Patient denies symptoms. Continue to monitor blood sugars closely and home medication for DM. Patient has previously refused SSI. Blood cultures remain negative after 4 days and patient remains afebrile. Hemoglobin improving at 11.0 and new thrombocytosis with platelets at 531. Recheck CBC to monitor blood counts. Discussed wound management with Dr. Cantu with regard to sarah. Recommends removing sarah 2 weeks from surgery date (06/02). Michele with Dr. Cantu to see patient today for additional recommendations. Appreciate their time and expertise. Sepsis Assessment - Evaluation Sepsis screening result: No Definite Risk
[2017-05-25] MEDS: DiphenhydrAMINE 25 MG CAPSULE PO PRN (21:28)
[2017-05-25] MEDS: SIMVASTATIN 40 MG TABLET PO SCH (21:28)
[2017-05-26] MEDS: INSULIN ASPART 100unit/ml INJECTION SQ PRN ×3 (06:45→21:24)
[2017-05-26] MEDS: OMEPRAZOLE 20 MG CAPSULE PO SCH (06:46)
[2017-05-26] MEDS: LACTULOSE 20 GM/30 ML ORAL LIQUID PO SCH ×2 (09:15→20:24)
[2017-05-26] MEDS: ENOXAPARIN 40 MG/0.4 ML INJECTION SQ SCH (09:16)
[2017-05-26] MEDS: POLYETHYL GLYCOL 3350 17gm PACKET PO SCH ×2 (09:16→20:24)
[2017-05-26] MEDS: SENNA + DOCUSATE TABLET PO SCH ×2 (09:17→20:24)
--- NOTE | 2017-05-26 11:38 | General Surgery Progress Note ---
Subjective Patient reports: no new complaints, tolerating liquids well (fulls, will advance to regular consistent carb today.), voiding w/o difficulty, bowel movement (loose) - Vital Signs Last Vital Signs Temp 97.9 F 05/26/17 08:00 Pulse 102 H 05/26/17 08:00 Resp 20 05/26/17 08:00 BP 156/74 H 05/26/17 08:00 Pulse Ox 94 05/26/17 04:00 - Laboratory Result Diagrams: 05/26/17 04:46 05/26/17 04:46 - Microbiogy Microbiology 05/21/17 09:57 Peripheral/Iv Start Blood Culture - Final No Growth After 5 Days 05/21/17 09:51 Peripheral/Iv Start Blood Culture - Final No Growth After 5 Days - Abnormal Exam Additional Abnormal Findings: The old T-tube site dressing is dry and the opening closed. I was able to separate the edge slightly by placing fingers on either side of the drain site and spreading, but the site closes up when fingers are released. KWABENA with clear yellow, serous fluid. - Normal Exam General: alert, oriented Cardiovascular: regular rate Respiratory: equal bilaterally Abdominal: appropriately tender (rightr subcoastal incision), incision(s) (CDI, sarah in tact) Assessment and Plan (1) T-tube migration Current Visit: Yes Status: Acute Qualifiers: Encounter type: initial encounter Qualified Code(s): T85.528A - Displacement of other gastrointestinal prosthetic devices, implants and grafts, initial encounter (2) Choledocholithiasis with acute cholecystitis with obstruction Current Visit: Yes Status: Resolved Plan: She is doing well with therapy. Will advance to regular diet. Place smalll dressing over T-tube site. KWABENA without bilious drainage, only clear yellow serous. Will check incision again tomorrow and decide if sarah can be removed or left in till next week. Hospital Course Summary Disclaimer: The visit summary below is not to be considered part of the above Progress Note. Hospital Course: 05/19/17 - HOSPITALIST CONSULT ASSESSMENT 05/13/17: Laparoscopic with conversion to open cholecystectomy with intraoperative cholangiogram, open common bile duct exploration and placement of T-tube. (Dr. Cantu) Mild normocytic anemia Type 2 DM, noninsulin dependent. Hgb A1c was 6.6% on 02/03/17. HLD HTN Schizophrenia Right breast cancer, resolved. PUD, GERD Insomnia Osteoporosis PLAN Monitor blood sugars. Pt is refusing SSI. Resume glimepiride, monitoring for hypoglycemia. Consistent carb dieet. Hgb slightly low - follow periodically. Recent low urinary outputs but renal function has remained stable. Postop care, drains - per Dr. Cantu. 05/21/17 09:57 Patient appears acutely septic with tachycardia, leukocytosis and bandemia, low body temp. Will obtain BC x 2. Serum lactate now. UA with cx and CXR now. Suspected source is urine, but given recent abdominal surgery, will need broader coverage. Start Zosyn and Vanco with pharmacy consult for vanco management. Fluid bolus x 2 hours, then continue IVF. NPO status with clear liquid sips and chips. Hold PO meds, change to IV route as appropriate. Start tele, Q 2 hours VS for monitoring. BG has been fairly stable, continue to monitor for now. Hold PO meds for DM. We can add sliding scale if needed. Repeat labs at 3pm for stability, improvement. BP is high, but suspect due to acute pain and illness. Hold off on treatment given concern for developing sepsis. Continue to monitor closely. D/W RN, again chart is reviewed for collateral information. Acuity is high given concern for sepsis. High risk meds include IV narcotics and decision to initiate treatment for sepsis. 05/22/17 KUB was performed showing large amount of stool. Lactulose and fleet's enema ordered. Cotinue NPO status with clear liquid sips and chips. Start IVF's - NS at 100ml/ hour Meds currently being held for DM as BS's have been reasonable. Sliding scale insulin ordered. 05/24/17 Denies abdominal pain today; no nausea. No emesis since early yesterday am. Continues to have bowel movements. KUB shows postop ileus. WBC has trended down and is into normal range today. However, LFTs have increased compared to yesterday. Continue Zosyn; clear liquid diet per Dr. Cantu. CXR shows new pulmonary edema - IVF stopped. No significant respiratory symptoms ; will monitor and add diuretics if needed. K decreased to 3.1 - given ileus and recent n/v, give IV KCl bolus. Mg was checked and was actually elevated at 2.4. 05/25/17 15:36 Denies abdominal pain today; no nausea. KUB on 05/24 and 05/25 were similar both revealing post-op ileus. She continues to have small liquid bowel movements. Continue bowel motivation and full liquid diet. She is tolerating liquids well. WBC stable at 7.7 with leukocytosis resolved. Continue to monitor. LFTs trending down. Recent CXR showed pulmonary edema. IVF stopped. Monitor closely for signs of fluid overload and respiratory symptoms. K slightly improved to 3.3 but remains low. Will give KCl 10mEq po now and recheck CMP in AM to monitor electrolytes, renal function and liver function. Recheck Mg as previously elevated at 2.4. Episode of 8-beat V-tach on tele last night. Continue to monitor closely on telemetry. Patient denies symptoms. Continue to monitor blood sugars closely and home medication for DM. Patient has previously refused SSI. Blood cultures remain negative after 4 days and patient remains afebrile. Hemoglobin improving at 11.0 and new thrombocytosis with platelets at 531. Recheck CBC to monitor blood counts. Discussed wound management with Dr. Cantu with regard to sarah. Recommends removing sarah 2 weeks from surgery date (06/02). Michele with Dr. Cantu to see patient today for additional recommendations. Appreciate their time and expertise. Sepsis Assessment - Evaluation Sepsis screening result: No Definite Risk
[2017-05-26] MEDS: HYDROCODONE/APAP 5mg/325mg TABLET PO PRN (14:48)
[2017-05-26] MEDS: SIMVASTATIN 40 MG TABLET PO SCH (20:24)
[2017-05-27] MEDS: DiphenhydrAMINE 25 MG CAPSULE PO PRN (00:26)
[2017-05-27] MEDS: INSULIN ASPART 100unit/ml INJECTION SQ PRN ×2 (05:52→11:02)
[2017-05-27] MEDS: OMEPRAZOLE 20 MG CAPSULE PO SCH (05:53)
[2017-05-27 06:01] VITALS: TEMP 98.1
[2017-05-27] MEDS: LACTULOSE 20 GM/30 ML ORAL LIQUID PO SCH (08:03)
[2017-05-27] MEDS: ENOXAPARIN 40 MG/0.4 ML INJECTION SQ SCH (08:03)
[2017-05-27] MEDS: SENNA + DOCUSATE TABLET PO SCH (08:03)
[2017-05-27] MEDS: POLYETHYL GLYCOL 3350 17gm PACKET PO SCH (08:03)
--- NOTE | 2017-05-27 08:21 | Discharge Instructions ---
Discharge Plan - Med Rec/Dispo Referrals/Follow Up: Sridhar Chaudhry MD [Family Provider] - (Dr. Robyn Chaudhry on 06/10/17 at 9:30 am for Hosp. follow-up. . [address] [place] [address]) Additional Instructions: Check lab (BMP) at follow-up appointment You have been started on an additional diabetes medicine. Please fill the presciption and take as directed. Check blood sugars at home and take log of sugars with you to follow-up appointment with Dr Chaudhry. Prescriptions: New Glimepiride [Amaryl] 2 mg PO WB 30 Days #30 tab Continue Multivitamin [One Daily] 1 tab PO DAILY Esomeprazole Magnesium [Nexium] 40 mg PO DAILY Simvastatin [Zocor] 40 mg PO HS [place]-3/Dha/Epa/Fish Oil [Fish Oil 1,000 mg Softgel] 1 each PO DAILY Metformin [Glucophage] 500 mg PO BID Calcium Carbonate [Calcium] 1 tab PO HS Discontinued Levofloxacin [Levaquin] 750 mg PO DAILY #7 tablet
[2017-05-27 08:46] VITALS: BP 148/71; PULSE 81; RESP 18; O2SAT 98
--- NOTE | 2017-05-27 09:43 | Discharge Instructions ---
Discharge Plan - Med Rec/Dispo Referrals/Follow Up: Sridhar Chaudhry MD [Family Provider] - (Dr. Robyn Chaudhry on 06/10/17 at 9:30 am for Hosp. follow-up. . [address] [place] [id number]) Additional Instructions: Check lab (BMP) at follow-up appointment Hold your glimipiride (diabetes medication) but continue the metformin. Check your blood sugars and take blood sugar log to follow up appointment with Dr. Chaudhry. Prescriptions: Continue Multivitamin [One Daily] 1 tab PO DAILY Esomeprazole Magnesium [Nexium] 40 mg PO DAILY Simvastatin [Zocor] 40 mg PO HS [place]-3/Dha/Epa/Fish Oil [Fish Oil 1,000 mg Softgel] 1 each PO DAILY Metformin [Glucophage] 500 mg PO BID Calcium Carbonate [Calcium] 1 tab PO HS Discontinued Levofloxacin [Levaquin] 750 mg PO DAILY #7 tablet
--- NOTE | 2017-05-27 10:49 | Discharge Instructions ---
Discharge Plan - Med Rec/Dispo Referrals/Follow Up: Sridhar Chaudhry MD [Family Provider] - (Dr. Robyn Chaudhry on 06/10/17 at 9:30 am for Hosp. follow-up. . [address] [place] [address]) Sunil Cantu MD [Physician] - 06/01/17 2:15 pm Additional Instructions: Check lab (CMP) at follow-up appointment 9-6 with Pepe Empty KWABENA drain twice a day. Keep drain compressed (flat). May shower, then change ALL dressings immediately after shower Hold your glimipiride (diabetes medication) but continue the metformin. Check your blood sugars and take blood sugar log to follow up appointment with Dr. Chaudhry. Prescriptions: Continue Multivitamin [One Daily] 1 tab PO DAILY Esomeprazole Magnesium [Nexium] 40 mg PO DAILY Simvastatin [Zocor] 40 mg PO HS [place]-3/Dha/Epa/Fish Oil [Fish Oil 1,000 mg Softgel] 1 each PO DAILY Metformin [Glucophage] 500 mg PO BID Calcium Carbonate [Calcium] 1 tab PO HS Discontinued Levofloxacin [Levaquin] 750 mg PO DAILY #7 tablet
--- NOTE | 2017-05-27 11:09 | IRU Progress Note ---
- Subjective/Serverity of Illness Alicia is anxious to go home. She has done well with therapy. She is somewhat impulsive. However she seems to be stable and certainly safe at the present time. With regard to her medical conditions, she is off antibiotics. T-tube and KWABENA remain in place. Surgery is managing the wound care etc. Arrangements have been made for outpatient follow-up. She is to check her blood sugars at home. She states that she is eating and drinking adequately today. We did discuss pain management. She is willing to go with plain Tylenol and I think that would be safer for her. Exam Vital Signs: Temperature 98.1 F 05/27/17 08:45 Pulse Rate 81 05/27/17 08:45 Respiratory Rate 18 05/27/17 08:45 Blood Pressure 148/71 H 05/27/17 08:45 Pulse Oximetry 98 05/27/17 08:45 Height/Weight/BMI: Height 1.5 m Weight 62 kg Body Mass Index 29.7 Comments: The patient is awake, alert and oriented and in no acute distress. Pupils are equal. The neck is supple. Chest: Clear to auscultation bilaterally. Cor: RR with no gallop, click nor murmur Abd: soft with normo-active bowel sounds. Abdominal wound fails to reveal any evidence of infection or inflammation. T-tube site and KWABENA site appears to be noninflamed. Extremities: No edema is noted. Results IRU - Labs Labs: Laboratory yesterday was stable. However potassium remains a bit low at 3.1. She remains on oral supplement in this regard. Sepsis Assessment - Evaluation Sepsis screening result: No Definite Risk IRU A/P (1) Choledocholithiasis with acute cholecystitis with obstruction Current visit: Yes Status: Resolved Patient remained stable and without evidence of common bile duct obstruction. T- tube is remaining in place. (2) Diabetes mellitus Qualifiers: Diabetes mellitus type: type 2 Diabetes mellitus complication status: without complication Diabetes mellitus risk analyst insulin use: without risk analyst use Qualified Code(s): E11.9 - Type 2 diabetes mellitus without complications Current visit: No Status: Chronic Blood sugars remain slightly elevated about 150. However she will go home on oral agents only. She is to monitor her sugars at home and bring them to her primary care physician's office at the appointment. (3) Leukocytosis Qualifiers: Leukocytosis type: bandemia Qualified Code(s): D72.825 - Bandemia Current visit: Yes Status: Resolved DVT Prophylaxis: SCD's Resuscitation Status: Full Code - Course Hospital Course: Francisco Vega MD: 05/23/17 11:54 Has had a bowel movement by her report. Comprise abdominal pain, nausea and vomiting. White count 20,000 Afebrile Remains on Zosyn. CT scan today demonstrates dilatation of common bile duct but without overt bile leakage. 05/24/17 11:53 Continues to have some nausea. Blood count significant only improved with white count 10,000. Has had bowel movements with significant laxative input. Denies abdominal pain. She is improving with therapies. 05/25/17 11:14 Patient complains of dizziness of unclear etiology or nature. Blood sugar 232. No abdominal pain. Diet has been advanced and tolerated well. Bowel movements are improved with laxatives. Safety awareness continues to be an issue from a therapy standpoint. 05/27/17 11:08 Patient is stable for dismissal today. Surgery to follow wound and recommended removal of drains at the appropriate time. No evidence of infection at present. No evidence of obstruction. - Interventions to Obtain Goals PT Treatment Plan: Balance/Proprioception, Functional Activities, Gait Training , Patient/Family Education, Therapeutic Exercise OT Treatment Plan: ADL (Basic Care), Balance Training, IADL, Pt./Family Education, Ther. Exercise for ADL Goals Progress/Modifications: Time spent with patient and on floor reviewing data and documentin minutes Barriers to dismissal: Patient plans to go home today. She is safe for transitioning and her normal environment. She'll be staying with her sister I believe. Medical decision-making: Reviewed laboratory. Sodium is okay but potassium remains slightly low. She is on potassium supplementation. Also discussed pain management with the patient. She will get by with Tylenol and she is comfortable with that.
--- NOTE | 2017-05-27 11:18 | Discharge Instructions ---
Discharge Plan - Med Rec/Dispo Referrals/Follow Up: Sridhar Chaudhry MD [Family Provider] - (Dr. Robyn Chaudhry on 06/10/17 at 9:30 am for Hosp. follow-up. . [address] [place] [address]) Sunil Cantu MD [Physician] - 06/01/17 2:15 pm Additional Instructions: Check lab (CMP) at follow-up appointment 9-6 with Pepe Empty KWABENA drain twice a day. Keep drain compressed (flat). May shower, then change ALL dressings immediately after shower Hold your glimipiride (diabetes medication) but continue the metformin. Check your blood sugars and take blood sugar log to follow up appointment with Dr. Chaudhry. Prescriptions: New Acetaminophen [Non-Aspirin Pain Relief] 2 tab PO Q6H PRN #30 tablet PRN Reason: Pain Continue Multivitamin [One Daily] 1 tab PO DAILY Esomeprazole Magnesium [Nexium] 40 mg PO DAILY Simvastatin [Zocor] 40 mg PO HS [place]-3/Dha/Epa/Fish Oil [Fish Oil 1,000 mg Softgel] 1 each PO DAILY Metformin [Glucophage] 500 mg PO BID Calcium Carbonate [Calcium] 1 tab PO HS Discontinued Levofloxacin [Levaquin] 750 mg PO DAILY #7 tablet Discharge Instructions/Outpatient Orders: Final Provider Discharge Instructions Location: Determined By Patient - Disposition 01 Discharged Home, Self-Care
--- NOTE | 2017-05-27 11:26 | Discharge Summary ---
Discharge Information Date of admission: 05/18/17 15:32 Anticipated date of discharge: 05/27/17 Attending Physician: Francisco Vega MD Primary care physician: Sridhar Chaudhry MD Consults: 05/18/17 18:12 Physician Consult [CONS] Routine Consulting Provider: Denver Juarez Reason For Exam: medical management; low outputs Ordering Provider has Notified City Plant Supervisor: No 05/18/17 18:21 Physician Consult [CONS] Routine Consulting Provider: Sunil Cantu Reason For Exam: PO gallbladder surgery Ordering Provider has Notified City Plant Supervisor: No Comment: follow surgical problem - Discharge Diagnosis Discharge Diagnosis: 1. Acute choledocholithiasis 2. Leukocytosisresolved 3. Diabetes mellitus type 2 not requiring longterm insulin administration 3. Debilitation - Laboratory Labs: 05/26/17 04:46 05/26/17 04:46 - Microbiology Microbiology 05/21/17 09:57 Peripheral/Iv Start Blood Culture - Final No Growth After 5 Days 05/21/17 09:51 Peripheral/Iv Start Blood Culture - Final No Growth After 5 Days 05/21/17 10:18 Urine, Voided (Cc/notcc) Urine Culture - Final Mixed Bacterial Sara History of Present Illness HPI: 05/27/17 11:23 Mx. Ba developed abdominal pain and was taken to surgery for potential laparoscopic cholecystectomy. Procedure was converted to an open procedure. Tolerated it well but was recovered in the ICU for a time. Subsequently she was very weak and debilitated and unable to perform activities of daily living or safely ambulate. For this reason she was transferred to the inpatient rehabilitation unit for further therapy. Hospital Course This is a general summary of the patient's hospital course. For more details refer to the complete medical record. Patient was admitted to the inpatient rehabilitation facility for an intensive individualized program of physical therapy and occupational therapy. She required 24 rehabilitation nursing monitoring of her blood sugars and physical condition. She did develop a leukocytosis of around 20,000. She was on Zosyn for a short time. Etiology of the leukocytosis was never clearly delineated. Cultures were all negative. Due to the leukocytosis and some degree of abdominal discomfort, a CT scan of the abdomen was obtained. While this did demonstrate some dilatation of the common bile duct, there was no indication of any bile leak nor fluid accumulation. Dr. Cantu did evaluate the patient and did not feel as though there was evidence of an acute on bile duct obstruction. Liver enzymes remained normal. Zosyn was discontinued. Her white count did resolve to normal. She did have some hypokalemia and she is on a potassium supplement in this regard. With regard to occupational therapy she improved with bathing from contact- guard assistance to independent functioning. Upper body dressing improved from modified independent functioning to independent functioning. Lower extremity dressing improved from contact-guard assistance to independent functioning. Toileting improved from standby assistance to 2 modified independent functioning. With regard to physical therapy, she improved with transfers in general for modified independent to independent functioning. At the time of dismissal she was able to walk over 1000 feet independently. Did require standby assistance for stairs and curbs transfers. She is ambulate with a non-skid front-wheeled walker. She is able to eat and drink adequately at the time dismissal. Her drains remained in place and will be monitored by the surgeons. Hospital course: 05/19/17 - HOSPITALIST CONSULT ASSESSMENT 05/13/17: Laparoscopic with conversion to open cholecystectomy with intraoperative cholangiogram, open common bile duct exploration and placement of T-tube. (Dr. Cantu) Mild normocytic anemia Type 2 DM, noninsulin dependent. Hgb A1c was 6.6% on 02/03/17. HLD HTN Schizophrenia Right breast cancer, resolved. PUD, GERD Insomnia Osteoporosis PLAN Monitor blood sugars. Pt is refusing SSI. Resume glimepiride, monitoring for hypoglycemia. Consistent carb dieet. Hgb slightly low - follow periodically. Recent low urinary outputs but renal function has remained stable. Postop care, drains - per Dr. Cantu. 05/21/17 09:57 Patient appears acutely septic with tachycardia, leukocytosis and bandemia, low body temp. Will obtain BC x 2. Serum lactate now. UA with cx and CXR now. Suspected source is urine, but given recent abdominal surgery, will need broader coverage. Start Zosyn and Vanco with pharmacy consult for vanco management. Fluid bolus x 2 hours, then continue IVF. NPO status with clear liquid sips and chips. Hold PO meds, change to IV route as appropriate. Start tele, Q 2 hours VS for monitoring. BG has been fairly stable, continue to monitor for now. Hold PO meds for DM. We can add sliding scale if needed. Repeat labs at 3pm for stability, improvement. BP is high, but suspect due to acute pain and illness. Hold off on treatment given concern for developing sepsis. Continue to monitor closely. D/W RN, again chart is reviewed for collateral information. Acuity is high given concern for sepsis. High risk meds include IV narcotics and decision to initiate treatment for sepsis. 05/22/17 KUB was performed showing large amount of stool. Lactulose and fleet's enema ordered. Cotinue NPO status with clear liquid sips and chips. Start IVF's - NS at 100ml/ hour Meds currently being held for DM as BS's have been reasonable. Sliding scale insulin ordered. 05/24/17 Denies abdominal pain today; no nausea. No emesis since early yesterday am. Continues to have bowel movements. KUB shows postop ileus. WBC has trended down and is into normal range today. However, LFTs have increased compared to yesterday. Continue Zosyn; clear liquid diet per Dr. Cantu. CXR shows new pulmonary edema - IVF stopped. No significant respiratory symptoms ; will monitor and add diuretics if needed. K decreased to 3.1 - given ileus and recent n/v, give IV KCl bolus. Mg was checked and was actually elevated at 2.4. 05/25/17 15:36 Denies abdominal pain today; no nausea. KUB on 05/24 and 05/25 were similar both revealing post-op ileus. She continues to have small liquid bowel movements. Continue bowel motivation and full liquid diet. She is tolerating liquids well. WBC stable at 7.7 with leukocytosis resolved. Continue to monitor. LFTs trending down. Recent CXR showed pulmonary edema. IVF stopped. Monitor closely for signs of fluid overload and respiratory symptoms. K slightly improved to 3.3 but remains low. Will give KCl 10mEq po now and recheck CMP in AM to monitor electrolytes, renal function and liver function. Recheck Mg as previously elevated at 2.4. Episode of 8-beat V-tach on tele last night. Continue to monitor closely on telemetry. Patient denies symptoms. Continue to monitor blood sugars closely and home medication for DM. Patient has previously refused SSI. Blood cultures remain negative after 4 days and patient remains afebrile. Hemoglobin improving at 11.0 and new thrombocytosis with platelets at 531. Recheck CBC to monitor blood counts. Discussed wound management with Dr. Cantu with regard to sarah. Recommends removing sarah 2 weeks from surgery date (06/02). Michele with Dr. Cantu to see patient today for additional recommendations. Appreciate their time and expertise. Time spent with patient: 25 - 35 minutes Discharge Plan - Med Rec/Dispo Referrals/Follow Up: Sridhar Chaudhry MD [Family Provider] - (Dr. Robyn Chaudhry on 06/10/17 at 9:30 am for Hosp. follow-up. . [address] [place] [address]) Sunil Cantu MD [Physician] - 06/01/17 2:15 pm Additional Instructions: Check lab (CMP) at follow-up appointment 9-6 with Pepe Empty KWABENA drain twice a day. Keep drain compressed (flat). May shower, then change ALL dressings immediately after shower Hold your glimipiride (diabetes medication) but continue the metformin. Check your blood sugars and take blood sugar log to follow up appointment with Dr. Chaudhry. Prescriptions: New Acetaminophen [Non-Aspirin Pain Relief] 2 tab PO Q6H PRN #30 tablet PRN Reason: Pain Continue Multivitamin [One Daily] 1 tab PO DAILY Esomeprazole Magnesium [Nexium] 40 mg PO DAILY Simvastatin [Zocor] 40 mg PO HS [place]-3/Dha/Epa/Fish Oil [Fish Oil 1,000 mg Softgel] 1 each PO DAILY Metformin [Glucophage] 500 mg PO BID Calcium Carbonate [Calcium] 1 tab PO HS Discontinued Levofloxacin [Levaquin] 750 mg PO DAILY #7 tablet Discharge Instructions/Outpatient Orders: Final Provider Discharge Instructions Location: Determined By Patient
--- NOTE | 2017-05-27 12:27 | Discharge Instructions ---
Discharge Plan - Med Rec/Dispo Referrals/Follow Up: Sridhar Chaudhry MD [Family Provider] - (Dr. Robyn Chaudhry on 06/10/17 at 9:30 am for Hosp. follow-up. . [address] [place] [address]) Sunil Cantu MD [Physician] - 06/01/17 2:15 pm [place] Instructions: Type 2 Diabetes in Adults (GEN) Additional Instructions: Check lab (CMP) at follow-up appointment 9-6 with Pepe Empty KWABENA drain twice a day. Keep drain compressed (flat). May shower, then change ALL dressings immediately after shower Hold your glimipiride (diabetes medication) but continue the metformin. Check your blood sugars and take blood sugar log to follow up appointment with Dr. Chaudhry. Prescriptions: New Acetaminophen [Non-Aspirin Pain Relief] 2 tab PO Q6H PRN #30 tablet PRN Reason: Pain Continue Multivitamin [One Daily] 1 tab PO DAILY Esomeprazole Magnesium [Nexium] 40 mg PO DAILY Simvastatin [Zocor] 40 mg PO HS [place]-3/Dha/Epa/Fish Oil [Fish Oil 1,000 mg Softgel] 1 each PO DAILY Metformin [Glucophage] 500 mg PO BID Calcium Carbonate [Calcium] 1 tab PO HS Discontinued Levofloxacin [Levaquin] 750 mg PO DAILY #7 tablet Discharge Instructions/Outpatient Orders: Final Provider Discharge Instructions Location: Determined By Patient
== END 2017-05-27 13:40 | disposition home or self-care (01) | DRG 945 ==
PROVIDERS: ADMIT Orthopaedic Surgery; ATTEND Orthopaedic Surgery